=== PATIENT | female | born 1965 | race Caucasian/White ===

== ENCOUNTER → 2017-10-20 07:19 | Outpatient (CLI) | payer OTHER, SELFPAY ==
--- NOTE | 2017-10-20 07:21 | CT_ITS ---
STUDY: CT LUMBAR SPINE WITHOUT CONTRAST REASON FOR EXAM: Female, 52 years old. Chronic back pain and left leg pain. Prior surgery. RADIATION DOSAGE (If Supplied By Facility): CTDIvol = ( 16.10 ) mGy, DLP = ( 516.13 ) mGycm TECHNIQUE: The patient was scanned in a multi detector CT scanner. High resolution transaxial imaging was performed. Images were obtained from T12 to S1 level. Sagittal and coronal images were reconstructed. Individualized dose optimization techniques were used for this CT. COMPARISON: Comparison is made with prior examination June 14, 2017. FINDINGS: Normal lumbar lordosis. There is no substantial scoliosis. Normal vertebrae of the lumbar spine. L1-2: Normal endplates. Normal disc height and morphology. Normal bilateral facet joints. Normal central canal and bilateral lateral recesses. Normal bilateral intervertebral neural foramina. L2-3: Normal endplates. Normal disc height and morphology. Normal bilateral facet joints. Normal central canal and bilateral lateral recesses. Normal bilateral intervertebral neural foramina. L3-4: Normal endplates. Normal disc height and morphology. Normal bilateral facet joints. Normal central canal and bilateral lateral recesses. Normal bilateral intervertebral neural foramina. L4-5: Once again, there is evidence of a grade 1 anterior listhesis of L4 on L5. The patient is status post interpedicular screw fixation at the L4-L5 level with prosthetic disc placement. Stable irregularity along the superior endplate of the anterior aspect of the L5 vertebrae. There is also evidence of a Schmorl's node in the inferior endplate of the L4 vertebrae. Stable central canal stenosis due to hypertrophy of the facet joints. L5-S1: Normal endplates. Normal disc height and morphology. Normal bilateral facet joints. Normal central canal and bilateral lateral recesses. Normal bilateral intervertebral neural foramina. Normal visualized paraspinous soft tissue structures. CT/Spine Lumbar without Contrast IMPRESSION: Postoperative changes at the L4-L5 level. Stable anterior listhesis of L4 on L5. There has been essentially no change since prior study. Electronically Signed: Phil Mix MD at 14:25 EST Tel [phone], Service support ,
== END ==
PROVIDERS: Family Provider Family Medicine; PCP Family Medicine; Visit Provider Anesthesiology Pain Medicine
DX: M54.9 Dorsalgia, unspecified (principal); M79.606 Pain in leg, unspecified
CPT/HCPCS: 72131

== ENCOUNTER → 2018-10-10 07:18 | Outpatient (CLI) | payer OTHER, SELFPAY ==
--- NOTE | 2018-10-10 07:26 | MRI_ITS ---
STUDY: MRI LUMBAR SPINE WITHOUT CONTRAST REASON FOR EXAM: Female, 53 years old. Low back pain radiating to the legs TECHNIQUE: Standardized fat and water weighted pulse sequences were obtained in the sagittal and axial planes. COMPARISON: February 03, 2017 FINDINGS: T12-L1: Normal endplates. Normal disc height, hydration and morphology. Normal bilateral facet joints. Normal central canal and bilateral lateral recesses. Normal bilateral intervertebral neural foramina. Normal lumbar lordosis. There is no substantial scoliosis. Normal conus medullaris that terminates at L1 L1-2: Normal endplates. Normal disc height, hydration and morphology. Normal bilateral facet joints. Normal central canal and bilateral lateral recesses. Normal bilateral intervertebral neural foramina. L2-3: Normal endplates. Normal disc height, hydration and morphology. Normal bilateral facet joints. Normal central canal and bilateral lateral recesses. Normal bilateral intervertebral neural foramina. L3-4: Normal endplates. Normal disc height, hydration and minimal annular bulge.. Mild facet arthropathy.. Normal central canal and bilateral lateral recesses. Mild bilateral neural foraminal encroachment. L4-5: Status post bilateral laminectomy and posterior fusion. Grade 1 spondylolisthesis. Narrowed disc space with desiccation of the disc and mild bulging disc osteophyte complex. Bilateral facet arthropathy. Normal central canal. Moderate bilateral recess and severe bilateral neuroforaminal stenosis exaggerated by shortened pedicles L5-S1: Normal endplates. Normal disc height, hydration and morphology. Mild facet arthropathy.. Normal central canal and bilateral lateral recesses. Normal bilateral intervertebral neural foramina. Normal visualized sacral ala. Normal visualized paraspinous soft tissue structures. There has been little significant change since prior exam MRI/Spine Lumbar (Routine) IMPRESSION: No evidence for acute fracture or subluxation. Postsurgical changes at L4-5 Spinal stenosis at L3-4 and more severe at L4-5 secondary to disc disease and bony hypertrophy exaggerated by shortened pedicles. Electronically Signed: Emmanuel Bone MD at 22:17 EST , Service support ,
== END ==
PROVIDERS: Family Provider Family Medicine; PCP Family Medicine; Referring Provider Anesthesiology Pain Medicine; Visit Provider Anesthesiology Pain Medicine
DX: M54.9 Dorsalgia, unspecified (principal); M79.605 Pain in left leg
CPT/HCPCS: 72148

== ENCOUNTER → 2018-10-26 17:10 | Outpatient (CLI) | payer OTHER, SELFPAY ==
--- NOTE | 2018-10-26 17:14 | RAD_ITS ---
STUDY: X-RAY - RIGHT HAND REASON FOR EXAM: Female, 53 years old. Pain. TECHNIQUE: 3 view(s) of the hand. COMPARISON: None. FINDINGS: Normal radiocarpal articulation. Normal distal radioulnar joint. Old avulsion fracture of the ulnar styloid. Normal visualized carpal bones. Normal carpal articulations There is degenerative arthrosis of the carpometacarpal (CMC) articulation of the thumb. Normal second through fifth carpometacarpal joints. Normal metacarpi. Normal metacarpophalangeal joint of the thumb. Normal interphalangeal joint of the thumb. Normal proximal and distal phalanges of the thumb. Normal metacarpophalangeal joints of the second through fifth fingers. Normal proximal and distal interphalangeal joints of the second through fifth fingers. Normal phalanges of the second through fifth fingers. The soft tissue structures are unremarkable. RAD/Hand Min 3 Views IMPRESSION: Old avulsion fracture of the ulnar styloid. Degenerative changes of the first carpometacarpal joint. Electronically Signed: Phil Mix MD at 8:28 EST , Service support ,
--- NOTE | 2018-10-26 17:15 | RAD_ITS ---
STUDY: X-RAY - SACROILIAC JOINTS REASON FOR EXAM: Female, 53 years old. Pelvic pain TECHNIQUE: 3 view(s) of the sacroiliac joints were obtained. COMPARISON: None. FINDINGS: There are degenerative changes of the bilateral sacroiliac joints. There is demineralization of the sacral ala and sacrum. There is no demonstrated fracture. Normal visualized iliac bones. Normal visualized soft tissue structures. Postsurgical changes of the lumbar spine. RAD/S-I Jts 3 or More Views IMPRESSION: Mild degenerative changes without acute findings Electronically Signed: Stephen Cortés DO at 9:28 EST Tel , Service support ,
== END ==
PROVIDERS: Family Provider Family Medicine; PCP Family Medicine; Referring Provider Family Medicine; Visit Provider Family Medicine
DX: M53.3 Sacrococcygeal disorders, not elsewhere classified (principal); M79.644 Pain in right finger(s)
CPT/HCPCS: 72202; 73130

== ENCOUNTER 2018-12-01 03:26 | Emergency (ER) | payer OTHER, SELFPAY ==
[2018-12-01 03:26] VITALS: BP 100/55; PULSE 107; RESP 18; TEMP 36.2; O2SAT 100; BMI 19.5
--- NOTE | 2018-12-01 03:53 | ED.VISSUMM ---
- ER Visit Summary Date of Service: 12/01/18 Chief Complaint: Vomiting and diarrhea History of Present Illness: The patient is a 53 F who presents the emergency department with approximately 4 hours of non-bloody vomiting and nonbloody diarrhea. Patient states that she felt fine during the day. She went to dinner with friends and ate [place]. She states she was home by 2100. Symptoms began around midnight. They have been persisting. She attempted to take a Zofran with no relief. No fevers. No recent antibiotics. No recent travel. They have city water. feels fine. Physical Examination: Afebrile vital signs are stable noted heart rate of 107 Gen: Well-nourished well-developed Head: Normocephalic atraumatic Eyes: Perrl EOMI ENT: TMs clear no rhinorrhea moist mucous membranes Neck: Supple no lymphadenopathy no JVD nontender CVS: Regular tachycardic rate rhythm no murmurs normal S1-S2 Respiratory: Tachypneic no distress clear to auscultation bilaterally chest nontender Abdomen: Soft mild diffuse tenderness no guarding or rebound nondistended normal bowel sounds no masses Back: Nontender Extremity: Nontender no edema Skin: Normal color no rash Neuro: alert orientated ?3 CN II-XII intact normal strength sensation reflexes gait cerebellar Psych: Anxious and shaky Test Results: White blood cell count nonspecifically elevated at 12.8. CMP and lipase normal. Emergency Department Course and Treatment: Patient received IV fluids and Phenergan. P.o. challenge given and passed. I will write for Phenergan at home. Instructions for oral hydration. I think this is most likely a viral illness probably norovirus has we have seen several patients recently with that. Impression: 1. Acute gastroenteritis This note was generated with [employer] dictation software. It may contain incorrect words, spelling, and punctuation that were not noted in review of the chart prior to signing ED Disposition - Plan for ED Patient: Disposition: Home or Assisted Living Instructions: ED Gastroenteritis Viral Prescriptions: proMETHazine tablet [Phenergan] 25 mg PO Q6H PRN PRN #20 tab PRN Reason: Nausea Referrals: Fredy Ac MD [Primary Care Provider] - 3-5 Days if not improving
[2018-12-01] MEDS: proMETHazine 25 MG/ML Syringe 12.5 MG IV (03:58)
[2018-12-01] MEDS: 0.9% Normal Saline 1,000 ML 1000 ML IV (03:58)
[2018-12-01 04:02] LABS: Absolute Lymphocyte Count 0.51 X10^3/ul (0.83-4.51); Absolute Neutrophil Count 11.7 X10^3/uL (2.0-7.7); Basophil# 0.02 X10^3/uL; Basophil% 0.2 % (0-1); Eosinophil# 0.04 X10^3/uL; Eosinophils% 0.3 % (0-5); Hematocrit 41.4 % (37-47); Hemoglobin 13.8 g/dl (12.0-15.0); Lymphocyte # 0.51 X10^3/ul (4.0); Mean Corp Hgb Conc 33.3 g/gl (32-36); Mean Corpuscular Hgb 32.1 pg (27.0-32.0); Mean Corpuscular Volume 96.3 fL (81-99); Mean Platelet Vol. 10.1 fl (6.2-12.0); Monocyte# 0.61 X10^3/uL; Monocyte% 4.8 % (0-10); Neutrophil # 11.65 X10^3/uL (2.7-7.7); Neutrophil % 90.6 % (47-70); Platelet Count 265 K/mm3 (150-450); RBC Distribution Width CV 12.9 % (11.6-14.6); RBC Distribution Width SD 44.6 fl (35.1-43.9); White Blood Count 12.8 K/mm3 (4.4-11.0)
[2018-12-01 04:03] LABS: Differential Indicated SCAN CRITERIA MET; POSITIVE COUNT NO; POSITIVE DIFFERENTIAL YES; POSITIVE MORPHOLOGY NO
[2018-12-01 04:14] LABS: Albumin, Serum 4.7 g/dL (3.2-5.0); BUN 15 mg/dL (7-18); BUN/Creat Ratio 23.2 RATIO (10-20); Creatinine, Serum 0.65 mg/dL (0.55-1.02); EST Glomerular Filtration Rate 101 mL/min (>60); Est Glom Filt Rate - Afr Amer 122 mL/min (>60); Estimated Creatinine Clearance 77.03 ml/min; Glucose 120 mg/dL (74-106); Protein, Total 7.9 g/dL (6.4-8.2)
[2018-12-01 04:15] LABS: ALB/GLOB Ratio 1.5 RATIO (0.9-2.4); AST(SGOT) 51 U/L (15-37); Alanine Aminotransfer ALT/SGPT 49 U/L (13-56); Alkaline Phosphatase 62 U/L (45-117); Anion Gap 10 (5-15); Calcium,Total 9.4 mg/dL (8.5-10.1); Chloride 103 mmol/L (98-107); Globulin 3.2 g/dL (2.2-4.2); Lipase 83 U/L (73-393); Sodium Level 143 mmol/L (136-145)
[2018-12-01] MEDS: proMETHazine 25 MG Tablet PO (05:06)
[2018-12-01] MEDS: Loperamide 2 MG Capsule 4 MG PO (05:06)
[2018-12-01 05:22] VITALS: BP 145/95; PULSE 101; RESP 16; O2SAT 100
== END 2018-12-01 05:23 | disposition home or self-care (01) ==
PROVIDERS: Emergency Provider Emergency Medicine; Family Provider Family Medicine; PCP Family Medicine
DX: K52.9 Noninfective gastroenteritis and colitis, unspecified (principal); M54.9 Dorsalgia, unspecified; G89.29 Other chronic pain
CPT/HCPCS: 80053; 83690; 85025; 96361; 96372; 96374; 99283; J7030; A4216

== ENCOUNTER → 2018-12-28 06:19 | Outpatient (CLI) | payer OTHER, SELFPAY ==
[2018-12-01 03:26] VITALS: BMI 19.5
--- NOTE | 2018-12-28 15:41 | NEURO ---
NCS and/or EMG Patient Report Ordering Doctor: Carmine Schwartz DATE OF SERVICE: 12/28/18 Conchis Lucas is a 53-year-old female presents for electrodiagnostic testing of the lower limbs. She reports sharp stabbing pain in the left leg as well as continued low back pain. She has previously had lumbar surgery. Letter diagnostic findings: Peroneal motor nerve demonstrates normal distal latency amplitude and conduction velocity bilaterally. Normal tibial motor response bilaterally. Normal tibial and peroneal F waves. H reflex normal bilaterally. Sensory responses are within normal limits. Needle he MG testing demonstrates 1+ polyphasic motor units in the left gastrocnemius. All other muscles tested showed no evidence of denervation with normal motor unit action potentials. Letter diagnostic assessment: This is an essentially normal study in the lower limbs. There is no electrodiagnostic evidence for acute lumbosacral radiculopathy or peripheral neuropathy. Polyphasic motor units in the left gastrocnemius are suggestive of some chronic denervation in the left S1 dermatome. If there are any further questions, please not hesitate to contact me.
== END ==
PROVIDERS: Family Provider Family Medicine; PCP Family Medicine; Referring Provider Anesthesiology Pain Medicine; Visit Provider Anesthesiology Pain Medicine
DX: M54.9 Dorsalgia, unspecified (principal); M79.606 Pain in leg, unspecified
CPT/HCPCS: 95886; 95913

== ENCOUNTER → 2019-01-17 08:10 | Outpatient (CLI) | payer OTHER, SELFPAY ==
[2019-01-17 08:06] VITALS: BMI 19.5
--- NOTE | 2019-01-17 08:11 | RAD_ITS ---
STUDY: X-RAY - LUMBAR SPINE REASON FOR EXAM: Female, 53 years old. POST OP TECHNIQUE: 4 view(s) of the lumbar spine were obtained. COMPARISON: 10/20/2017 and 10/10/2018 FINDINGS: Normal lumbar lordosis. There is no substantial scoliosis. There is fusion at L4-5. There is 9 mm spondylolisthesis at L4-5 is stable during flexion and extension. There is bone erosion of the anterior superior corner of L5 and has not significantly changed since the study from 10/20/2017. There is no significant bony bridging between the vertebral bodies at L4-5. Normal disc space heights at the remaining levels. The soft tissue structures are unremarkable. RAD/L/S Spine Bending Flex/Ext IMPRESSION: Fusion at L4-5-5 without significant bony bridging between the vertebral bodies. There is no evidence of instability. Electronically Signed: Celestine Mackey, at 1:12 EDT Tel , Service support ,
== END ==
PROVIDERS: Family Provider Family Medicine; PCP Family Medicine; Referring Provider Orthopaedic Surgery; Visit Provider Orthopaedic Surgery
DX: M54.16 Radiculopathy, lumbar region (principal)
CPT/HCPCS: 72120

== ENCOUNTER 2019-02-20 07:30 | Outpatient (RCR) | payer OTHER, SELFPAY ==
[2019-01-17 08:06] VITALS: BMI 19.5
--- NOTE | 2019-02-06 07:46 | HP.PTEVAL_ITS ---
Patient's Visit Information NANCY BURKS is a 53 year old F referred to Physical Therapy by Becky Salazar MD with a diagnosis of Piriformis Syndrome. Date of Evaluation: 02/06/19 Physical Therapist: [place] DPT - Visit Plan Frequency: 2x /Week Duration: 3 Weeks Plan: Intended to do aquatic therapy for 2 weeks with progression to land for 2 weeks. Patient unable to attend aquatic therapy times so patient will be seen on land for 2 week for progression of strengthening and home exercise program for core strength/stabilization - Subjective Findings: Patient reports sciatic pain for about a year and half- insidous onset. The pain is always there but gets more intense. Agg: sitting Worst: 5/10 in the last 48 hours. Current pain level is a 2/10. Eases: Standing is the best. pain is located in the buttock area and radiates down the left leg. fuzzy in the calf and sometimes the big and pinky toes. Can't follow the line after the knee. Describes the pain as burning and sharp. Has had x-rays and MRI and saw Dr. Salazar. She says there is a lot going on- going to try a differnet injection on . Her whole life has changed due to her lumbar fusion 2 years ago- had a cervical spine fusion with a hardwear removal. No N/T down the LE. No loss or change in bowel or bladder. Sleep: wakes her up and keep her from sleeping. 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 Trying to decipher where the pain is coming from. Goes back to [place] at end of February. Significant surgical history with back problems- drives 50 min to work and is miserable by the time she gets here. Does not use a lumbar roll as she is unable to tolerate anything touching her spine. She wants her hardwear out of her back but is unsure if that is the problem. Does not sit unless she has to- eats standing up, watches TV standing up, etc. PMHx/Meds: no changes since saw [facility]. - Objective Posture: good throughout session. Gait: no devaition noted. Observation: goes have multiple surgical incisions well healed along lumbar spine. ROM: Lumbar Flexion: hands to mid crowe with reports of significant pain, Extn: neutral, SB: WFL pain to the left Rotation: WFL pain to the left and pulling to the right, LE: WFL. Sensation: WNL. Reflexes: diminished bilaterally at patella. Palpation: unable to tolerate light touch to paraspinals of lumbar spine. SLS: able to stand 30 seconds but reports instability bilaterally and has increased muscle activation left>right. HR/TR: able but left TR decreased by 25% compared to right. Strength: Core: fair, Left LE: hip: flexion/IR/ER 4-/5 Abd/Add/Ext: 4/5, Knee: 4/5, Ankle: 4+/5, Right: Hip flexion/IR/ER 4/5 Abd/Add/Ext: 4+/5, Knee: 5/5, Ankle. Flex: HS: mild, Gastroc: mild. Special Test: TAWANA: negative, Figure 4: negative. - Goals Goal 1:: Patient will be I with HEP and progression Goal Time Frame: 4-6 Weeks Goal 2:: Patient will demo 4+/5 strength in bilateral LE where deficit Goal Time Frame: 4-6 Weeks Goal 3:: Patient will report 2/10 pain for 1 week Goal Time Frame: 4-6 Weeks - Rehabilitation Potential Physical Therapy Diagnosis: Patient presents with hypomobility- she has decreased strength and muscular endurance Left>Right leading to increased pain with ADL's. Rehabilitation Potential: Fair - Anticipated Interventions Patient/Client Instruction: Educate patient on: Benefits of Fitness Program Therapeutic Exercise to Include: Strength training, Endurance training, Balance training, Agility training, Body mechanics, Postural training, Flexibilty training, Gait and locomotor training, Dynamic Lumbar Stabilization, Scapular Strength/Stabilization For the Purpose of:: To improve muscle performance and motor function TENS: Yes Cryotherapy (ice pack, ice massage): Yes Thermo therapy (hot pack): Yes Ultrasound (thermal/non thermal): No - Lumbar Fusions For the Purpose of:: To decrease pain Thank you for the opportunity to evaluate your patient. For Medicare and Medicare HMO plans, please review the plan of care and approve it. It will need to be FAXED BACK to us at [phone] for Medicare purposes. For Medicare only, by signing this I certify the plan of care. Please let me know if there are questions or concerns regarding this plan of care. Physician Signature: Date:
--- NOTE | 2019-02-20 07:46 | HP.PTDCSUM ---
HP - PT D/C Summary It has been my pleasure to treat NANCY BURKS under orders from Becky Salazar MD, for the diagnosis of Piriformis Syndrome for a total of 5 visit(s). Discharge Date: Please see the following information for a summary of their discharge status. - Subjective Subjective: Patient reports thats he is miserable- PT is making her worse. After last session she was having nerve pain. She sat all weekend in the car and at a wedding and is simply miserable. Sees in approx [address] Schwartz after that. - Overall Improvement % Improvement: 0 - Objective Objective/Function: No changes since initial evaluation. Posture: good throughout session. Gait: no devaition noted. Observation: goes have multiple surgical incisions well healed along lumbar spine. ROM: Lumbar Flexion: hands to mid crowe with reports of significant pain, Extn: neutral, SB: WFL pain to the left Rotation: WFL pain to the left and pulling to the right, LE: WFL. Sensation: WNL. Reflexes: diminished bilaterally at patella. Palpation: unable to tolerate light touch to paraspinals of lumbar spine. SLS: able to stand 30 seconds but reports instability bilaterally and has increased muscle activation left>right. HR/TR: able but left TR decreased by 25% compared to right. Strength: Core: fair, Left LE: hip: flexion/IR/ER 4-/5 Abd/Add/Ext: 4/5, Knee: 4/5, Ankle: 4+/5, Right: Hip flexion/IR/ER 4/5 Abd/Add/Ext: 4+/5, Knee: 5/5, Ankle. Flex: HS: mild, Gastroc: mild. Special Test: TAWANA: negative, Figure 4: negative. - Goals Goal 1:: Patient will be I with HEP and progression Goal 2:: Patient will demo 4+/5 strength in bilateral LE where deficit Goal 3:: Patient will report 2/10 pain for 1 week - Plan Plan: Discharge- return to [facility] for further evaluation - D/C Information If there are questions or concerns regarding this patient's physical therapy, please feel free to call me at [phone]. Thank you for the referral of this patient. Sincerely, [place] DPT
== END 2019-02-20 19:00 | disposition home or self-care (01) ==
LOC: PT 07:30
PROVIDERS: Family Provider Family Medicine; PCP Family Medicine; Referring Provider Orthopaedic Surgery; Visit Provider Orthopaedic Surgery
DX: G57.02 Lesion of sciatic nerve, left lower limb (principal)
CPT/HCPCS: 97110; 97162; 97164

== ENCOUNTER → 2019-03-29 08:43 | Outpatient (CLI) | payer OTHER, SELFPAY ==
[2019-03-14 10:57] VITALS: BMI 19.5
[2019-03-29 10:14] LABS: Amphetamine Urine VISTA NEGATIVE (<1000 ng/mL); Barbiturate Urine VISTA NEGATIVE (< 200 ng/mL); Benzodiazepine Urine VISTA NEGATIVE (< 200 ng/mL); Cocaine Urine VISTA NEGATIVE (< 300 ng/mL); Ecstacy Urine VISTA NEGATIVE (< 500 ng/mL); Methadone Urine VISTA NEGATIVE (< 300 ng/mL); PCP Urine VISTA NEGATIVE (< 25 ng/mL); THC Urine VISTA NEGATIVE (< 50 ng/mL); Vista UDS pH Range 6
== END ==
PROVIDERS: Family Provider Family Medicine; PCP Family Medicine; Referring Provider Anesthesiology Pain Medicine; Visit Provider Anesthesiology Pain Medicine
DX: F11.20 Opioid dependence, uncomplicated (principal)
CPT/HCPCS: 80307

== ENCOUNTER 2019-11-17 09:11 | Outpatient (RCR) | payer OTHER, SELFPAY ==
[2019-05-02 08:40] VITALS: BMI 19.5
--- NOTE | 2019-11-20 15:08 | MASS.EVAL_ITS ---
Massage Therapy Evaluation: Initial Evaluation Date: 11/17/2019 SUBJECTIVE: Conchis is a 54 year old female who was referred to the [facility] for a massotherapy evaluation by Dr. Schwartz with the diagnosis of neck and back pain. She presents today with the symptoms of pain, stiffness and tension in the neck, mid back, and low back. Conchis reports having a past medical history of neck, shoulders, back pain. She reports that her interscapular region has muscle tension radiating pain up to her neck which is worse on the left side. She r eports having minimal improvement with exercise and stretching over the last few days. OBJECTIVE: Upon observation Conchis has some posture issues with her head and shoulders forward from the neutral position in sitting and standing. After examination and palpation, I found Conchis to have high muscle tension with tenderness and myofascial restrictions in her sub occipitals, levator scapulae, trapezius, rhomboids, scalenes, and thoracic paraspinals. Her QL?s, lumbar paraspinals, piriformis, glute medius and minimus all were very tight with fascial restrictions, tender points and trigger points. The first treatment consisted of a one hour massage to her upper body with myofascial release, muscle stripping, trigger point compression techniques, and cervical manual traction. ASSESSMENT: I feel that Conchis is a good candidate for massotherapy at this time. She had a favorable response to the first treatment with reduction in her muscle aches, pain and tension. She also had improvement in her cervical flexibility and low back flexibility. PLAN: The plan of care was reviewed with the patient. The patient is to be seen on an as needed basis for a total of ten sessions with the recommendation of once every month for a one hour treatment.
--- NOTE | 2020-08-14 17:06 | MASS.DISCH ---
Massage Therapy Discharge Summary: Discharge Date: 08/14/2020 Conchis was seen for a massotherapy evaluation on 11/17/2019 with the diagnosis of neck and back pain. She was treated with one sessions of massage therapy consisting of deep pressure soft tissue techniques, myofascial release and trigger point compression to her cervical, thoracic, lower back and hips. At this time this patient is being discharged from our care at [facility] facility.
== END 2019-11-17 19:00 | disposition home or self-care (01) ==
LOC: MASS 09:11
PROVIDERS: PCP Family Medicine; Referring Provider Anesthesiology Pain Medicine; Visit Provider Anesthesiology Pain Medicine
DX: M54.9 Dorsalgia, unspecified (principal); M54.2 Cervicalgia
CPT/HCPCS: 97124

== ENCOUNTER → 2020-05-31 14:34 | Outpatient (CLI) | payer OTHER, SELFPAY ==
[2019-05-02 08:40] VITALS: BMI 19.5
--- NOTE | 2020-05-31 14:42 | CT_ITS ---
STUDY: CT CERVICAL SPINE WITH CONTRAST REASON FOR EXAM: Female, 54 years old. CERVICALGIA. PAIN RADIATING DOWN THE LEFT ARM. 3 FUSIONS 1 HARDWARE REMOVAL RADIATION DOSAGE (If Supplied By Facility): CTDIvol = ( 12.05 ) mGy, DLP = ( 209.91 ) mGycm TECHNIQUE: High resolution transaxial imaging was performed following intravenous administration of IV 100mL Isovue-370. Sagittal and coronal images were reconstructed. Individualized dose optimization techniques were used for this CT. COMPARISON: Comparison is made with prior study dated 08/20/2014. FINDINGS: Normal craniovertebral junction. Normal anterior atlantoaxial articulation. Normal odontoid process. There is straightening of the normal cervical lordosis. The patient is status post anterior fusion at the C3-C4 C4-C5 and C5-C6 levels. Prior laminectomy at C6-C7 and fusion. C2-3: Normal endplates. Normal disc height and morphology. Normal central canal and intervertebral neuroforamina. C3-4: Anterior fusion with a plate and screw fixation. Stable facet joint hypertrophy on the left side with left foraminal narrowing. C4-5: Anterior fusion. Mild degree of degenerative spurring. C5-6: Status post anterior fusion. Posterior fusion is seen as well. C6-7: Anterior and posterior fusion. C7-T1: Mild spurring. Normal visualized soft tissue structures. CT/Spine Cervical WITH Contrast IMPRESSION: Stable examination. Electronically Signed: Phil Mix, at 15:45 EDT , Service support ,
== END ==
PROVIDERS: PCP Family Medicine; Referring Provider Family Medicine; Visit Provider Family Medicine
DX: M54.2 Cervicalgia (principal)
CPT/HCPCS: 72126; Q9967

== ENCOUNTER → 2020-06-10 10:30 | Outpatient (CLI) | payer OTHER, SELFPAY ==
[2019-05-02 08:40] VITALS: BMI 19.5
--- NOTE | 2020-06-10 10:33 | RAD_ITS ---
STUDY: X-RAY - LEFT KNEE REASON FOR EXAM: Female, 54 years old. PT IS A RUNNER, PAIN TO PATELLOFEMORAL AREA TECHNIQUE: 4 view(s) of the knee. COMPARISON: None. FINDINGS: Normal visualized distal femur. Normal visualized proximal tibia and fibula. Normal proximal tibiofibular articulation. Normal medial femorotibial compartment. Normal lateral femorotibial compartment. There is mild degenerative arthrosis of the patellofemoral articulation. The soft tissue structures are unremarkable. RAD/Knee 4 or More Views IMPRESSION: Degenerative arthrosis. Electronically Signed: Celestine Mackey, at 14:16 EDT Tel , Service support ,
== END ==
PROVIDERS: PCP Family Medicine; Referring Provider Family Medicine; Visit Provider Family Medicine
DX: M22.2X9 Patellofemoral disorders, unspecified knee (principal)
CPT/HCPCS: 73564

== ENCOUNTER → 2020-06-21 09:32 | Outpatient (CLI) | payer OTHER, SELFPAY ==
[2020-06-21 08:55] VITALS: BMI 19.5
--- NOTE | 2020-06-21 09:34 | RAD_ITS ---
STUDY: X-RAY - LUMBAR SPINE REASON FOR EXAM: Female, 54 years old. Worsening low back pain TECHNIQUE: 2 view(s) of the lumbar spine were obtained. COMPARISON: 01/17/2019 FINDINGS: There has been previous pedicle screw fusion surgery at L4 and L5 to stabilize a grade 1 spondylolisthesis at L4-5. Hardware is intact and free of complication Normal lumbar lordosis. There is no substantial scoliosis. There is a normal alignment of the vertebrae from L1 to L4. There is a grade 1 spondylolisthesis at L4-5. L5 and S1 align anatomically. There is multilevel endplate spondylosis of the lumbar vertebrae. There is multi-level degenerative disc disease with multi-level disc space narrowing. There is no demonstrated fracture. The soft tissue structures are unremarkable. RAD/Lumbar Spine 2 or 3 Views IMPRESSION: Stable degenerative and postsurgical changes in the lumbar spine. No acute findings or significant interval change. Stable grade 1 spondylolisthesis at L4-5 Electronically Signed: Paul Anderson MD at 11:34 EDT , Service support ,
--- NOTE | 2020-06-21 09:34 | RAD_ITS ---
STUDY: X-RAY - CERVICAL SPINE REASON FOR EXAM: Female, 54 years old. Worsening neck pain TECHNIQUE: 4 view(s) of the cervical spine were obtained. COMPARISON: CT scan from 05/31/2020 FINDINGS: There has been previous anterior cervical fusion between C3 and C4 and posterior fusion between C5-6 and 7. There is interbody fusion from C3 through C7. Normal anterior atlantoaxial articulation. Normal odontoid process. There is straightening of the normal cervical lordosis. The soft tissue structures are unremarkable. There is no demonstrated fracture of the cervical spine. RAD/Cerv Spine 2 or 3 Views IMPRESSION: There has been interbody fusion between C3 and C7 with anterior fusion noted at C3-4 and posterior fusion at C5-C6 and C7. Hardware is intact and free of complication No fracture or suspicious osseous lesion Electronically Signed: Paul Anderson MD at 11:37 EDT , Service support ,
== END ==
PROVIDERS: PCP Family Medicine; Referring Provider Orthopaedic Surgery; Visit Provider Orthopaedic Surgery
CPT/HCPCS: 72040; 72100; C9803

== ENCOUNTER 2020-06-22 12:54 | Emergency (ER) ==
--- NOTE | 2020-06-22 13:08 | ED.DCSUM_ITS ---
History of Present Illness Chief Complaint: Cellulitis Informant: Patient Narrative: Patient states that 4 days ago she received an injection into the right hand for a pain management epidural injection. She is unsure of exactly what they gave her. She felt good for couple days and then yesterday noticed some redness near the IV site going up the arm to the elbow. She noted temperature 99.9. T-max 100.3 at now clinic prior to arrival. The patient notes that the back feels okay. She states it is not anything different than normal. She states that the arm is not necessarily painful unless she goes to touch it. Past Medical History - Allergies and Home Meds Allergies/Adverse Reactions: Allergies codeine Adverse Reaction (Verified 06/22/20 12:55) Vomiting epinephrine Adverse Reaction (Verified 06/22/20 12:55) VOMITTING AND PASSED OUT WHEN TAKEN IN COMB. WITH [facility] vomiting and passed out when taken in combination with [facility] oxycodone HCl [From Percocet] Adverse Reaction (Verified 06/22/20 12:55) Itching Penicillins Adverse Reaction (Verified 06/22/20 12:55) Vomiting Primary Care Physician: Fredy Ac MD [Primary Care Provider] - 3-5 Days if not improving Surgical History: - Smoking Status: Never smoker Review of Systems General: Denies: Chills, Fever, Sweats Eyes: Denies: Visual changes - bilaterally, Diplopia ENT: Denies: Rhinorrhea, Sore throat Cardiovascular: Denies: Chest pain, Palpitations Respiratory: Denies: Dyspnea, Cough, Dyspnea on exertion Gastrointestinal: Denies: Abdominal pain, Nausea, Vomiting, Diarrhea, Melena, Hematochezia Genitourinary: Denies: Dysuria, Hematuria, Frequency Musculoskeletal: Reports: Extremity Pain. Denies: Back pain Skin: Reports: Rash. Denies: Wounds Neurological: Denies: Headache, Weakness, Numbness Physical Exam Vital Signs/Narrative: Vital Signs Temp Pulse Resp BP Pulse Ox 06/22/20 12:55 97.6 F L 95 16 150/93 H 98 Inital Vital Signs reviewed: Yes General: Well nourished, Well developed, No Acute Distress Head: Normocephalic, Atraumatic Eyes: Perrl, EOMI ENT: Moist mucous membranes, No rhinorrhea Neck: Supple, Nontender Cardiovascular: Regular rate, Regular rhythm, No murmurs Respiratory: No distress, CTA bilaterally, Chest nontender Abdomen: Soft, Nontender, Nondistended, Normal bowel sounds Back: Nontender, Normal Inspection Extremities: Nontender, No edema Skin: Normal color, No rash, - - There is erythema extending from the IV site up to the AC following a superficial vein. However the vein itself does not feel thrombosed. There is no significant swelling distally. The erythema does not seem to extend laterally away from the vein as it approaches the AC joint. Proximally no symp Neurological: Alert, Oriented x3, Cranial nerves II-XII grossly intact, Normal Strength, Normal Sensation Psychological: Normal affect, Normal Mood Diagnostic/Tx/Re-eval - Medical Decision Making There is most likely a phlebitis but given that the erythema is extending away from the vein need to entertain a cellulitis. I think is very reasonable start her on some Keflex. Warm compresses and early follow-up. Return if worsening or concerns and patient is comfortable with this plan. At this point I do not see any evidence of DVT. ED Disposition - Plan for ED Patient: Disposition: Home or Assisted Living Diagnosis: Phlebitis after infusion, Cellulitis of right forearm Instructions: ED Cellulitis, ED Phlebitis Superficial Prescriptions: Cephalexin [Keflex] 500 mg PO Q6 #40 cap Prescription Printed Referrals: Fredy Ac MD [Primary Care Provider] - 3-5 Days if not improving
[2020-06-22 13:24] VITALS: RESP 15
== END 2020-06-22 13:24 | disposition home or self-care (01) ==
LOC: ED 13:16
DX: L03.113 Cellulitis of right upper limb (principal)
CPT/HCPCS: 99284

== ENCOUNTER → 2020-11-07 15:36 | Outpatient (CLI) | payer OTHER, SELFPAY ==
--- NOTE | 2020-11-07 15:40 | RAD_ITS ---
STUDY: X-RAY - LEFT HAND REASON FOR EXAM: Female, 55 years old. pain TECHNIQUE: 3 view(s) of the hand. COMPARISON: None. FINDINGS: Normal radiocarpal articulation. Normal distal radioulnar joint. Normal visualized carpal bones. Normal carpal articulations There is degenerative arthrosis of the carpometacarpal (CMC) articulation of the thumb. Normal second through fifth carpometacarpal joints. Normal metacarpi. Normal metacarpophalangeal joint of the thumb. Normal interphalangeal joint of the thumb. Normal proximal and distal phalanges of the thumb. Normal metacarpophalangeal joints of the second through fifth fingers. Normal proximal and distal interphalangeal joints of the second through fifth fingers. Normal phalanges of the second through fifth fingers. The soft tissue structures are unremarkable. RAD/Hand Min 3 Views IMPRESSION: Moderate first carpometacarpal joint arthrosis. Electronically Signed: Khoa Dillard MD at 16:01 EST Tel , Service support ,
== END ==
PROVIDERS: PCP Family Medicine; Referring Provider Orthopaedic Surgery; Visit Provider Orthopaedic Surgery
DX: M65.312 Trigger thumb, left thumb (principal)
CPT/HCPCS: 73130

== ENCOUNTER → 2020-11-13 09:09 | Outpatient (CLI) | payer OTHER, SELFPAY ==
[2020-11-13 09:56] LABS: Amphetamine Urine VISTA NEGATIVE (<1000 ng/mL); Barbiturate Urine VISTA NEGATIVE (< 200 ng/mL); Benzodiazepine Urine VISTA NEGATIVE (< 200 ng/mL); Cocaine Urine VISTA NEGATIVE (< 300 ng/mL); Ecstacy Urine VISTA NEGATIVE (< 500 ng/mL); Methadone Urine VISTA NEGATIVE (< 300 ng/mL); PCP Urine VISTA NEGATIVE (< 25 ng/mL); THC Urine VISTA NEGATIVE (< 50 ng/mL); Vista UDS pH Range 7
== END ==
PROVIDERS: PCP Family Medicine; Referring Provider Anesthesiology Pain Medicine; Visit Provider Anesthesiology Pain Medicine
DX: F11.20 Opioid dependence, uncomplicated (principal)
CPT/HCPCS: 80307

== ENCOUNTER → 2021-02-05 09:56 | Outpatient (CLI) | payer OTHER, SELFPAY ==
--- NOTE | 2021-02-05 10:02 | RAD_ITS ---
STUDY: X-RAY - CERVICAL SPINE REASON FOR EXAM: Female, 55 years old. NECK PAIN TECHNIQUE: 3 view(s) of the cervical spine were obtained. COMPARISON: Prior cervical spine films of 06/21/2020 FINDINGS: Normal anterior atlantoaxial articulation. Normal odontoid process. Degenerative arthrosis of the C1 odontoid articulation. Straightening of the cervical spine status post anterior spinal and interbody fusion of C3 and C4. No disruption of the anterior plate and screw hardware. Status post posterior spinal fusion of C5, C6 and C7. No change in posterior pedicle screw and julia alignment or appearance. The spine remains fused from C3 through C7. Mild degenerative disc and joint changes at C2-3. The soft tissue structures are unremarkable. RAD/Cerv Spine 2 or 3 Views IMPRESSION: Straightening of the cervical spine with no change in alignment or hardware placement status post anterior spinal fusion of C3-C4 and posterior spinal fusion of C5, C6 and C7. Electronically Signed: Sarai Yun MD at 23:28 EDT , Service support ,
== END ==
PROVIDERS: PCP Family Medicine; Referring Provider Anesthesiology Pain Medicine; Visit Provider Anesthesiology Pain Medicine
DX: M54.2 Cervicalgia (principal)
CPT/HCPCS: 72040

== ENCOUNTER → 2021-02-07 11:22 | Outpatient (CLI) | payer OTHER, SELFPAY ==
--- NOTE | 2021-02-07 11:24 | BI_ITS ---
MAMMOGRAPHY - BILATERAL SCREENING REASON FOR EXAM: Female, 55 years old. Routine annual screening examination. PERTINENT HISTORY: Non-contributory. TECHNIQUE: Digital bilateral breast roberto (3D mammographic acquisition) in the CC and MLO projections. 2-D mediolateral oblique (MLO) and craniocaudad (CC) views of both breasts were obtained. CAD: Full Field Digital Mammography with Computer Added Detection was performed. COMPARISON: Comparison is made with prior study dated 07/21/2017 and 10/27/2013. FINDINGS: Breast Composition: The breasts are extremely dense, which lowers the sensitivity of mammography. There are no dominant masses or suspicious calcifications. No other significant abnormalities are identified. There has been no significant change since the prior study. BI/SCRN MAMM (CAD)W/ROBERTO BILAT IMPRESSION: Stable bilateral screening mammogram. Yearly follow-up mammogram recommended. (A) ASSESSMENT CATEGORY: BIRADS Category 1: Negative. A letter regarding these results will be sent to the patient by the facility within 30 days. Approximately 10% of breast cancers are not detected by mammography. A normal mammogram should not delay biopsy of a clinically suspicious abnormality. [id number] Electronically Signed: Phil Mix MD at 12:38 EDT , Service support ,
== END ==
PROVIDERS: PCP Family Medicine; Referring Provider Family Medicine; Visit Provider Family Medicine
DX: Z12.31 Encounter for screening mammogram for malignant neoplasm of breast (principal)
CPT/HCPCS: 77063; 77067

== ENCOUNTER → 2021-02-12 07:51 | Outpatient (CLI) | payer OTHER, SELFPAY ==
--- NOTE | 2021-02-12 07:56 | CT_ITS ---
STUDY: CT CERVICAL SPINE WITHOUT CONTRAST REASON FOR EXAM: Female, 55 years old. Chronic left-sided neck pain. The patient is status post C3-C4, C4-C5, C5-6 and C6-C7 anterior fusion and prosthetic disc placement. RADIATION DOSAGE (If Supplied By Facility): CTDIvol = ( 11.86 ) mGy, DLP = ( 243.61 ) mGycm TECHNIQUE: High resolution transaxial imaging was performed without contrast material. Sagittal and coronal images were reconstructed. Individualized dose optimization techniques were used for this CT. COMPARISON: Comparison is made with prior study dated 05/31/2020. FINDINGS: Normal craniovertebral junction. Normal anterior atlantoaxial articulation. Normal odontoid process. There is straightening of the normal cervical lordosis. The patient is status post multilevel anterior fusion with screw and plate fixation device and prostatic disc placement. C2-3: Facet joint osteoarthritis and hypertrophy. No significant stenosis seen. C3-4: The patient is status post anterior fusion with plate and screw fixation device. There is fusion of the disc space with the posterior spondylosis worse on the left side of the midline causing mild to moderate degree of left neural foraminal stenosis. C4-5: The patient is status post anterior fusion with screw and plate fixation device. Mild degree of degenerative spurring. C5-6: Status post anterior and posterior fusion. No evidence of stenosis. C6-7: Status post anterior and posterior fusion. Mild degree of spondylosis. C7-T1: Normal endplates. Normal disc height and morphology. Normal central canal and intervertebral neuroforamina. Normal visualized soft tissue structures. CT/Spine Cervical without Contras IMPRESSION: Stable examination. Electronically Signed: Phil Mix MD at 11:51 EDT , Service support ,
== END ==
PROVIDERS: PCP Family Medicine; Referring Provider Anesthesiology Pain Medicine; Visit Provider Anesthesiology Pain Medicine
DX: M54.2 Cervicalgia (principal); M79.603 Pain in arm, unspecified; Z98.1 Arthrodesis status
CPT/HCPCS: 72125

== ENCOUNTER 2021-04-01 09:45 | Day surgery (SDC) | payer OTHER, SELFPAY ==
[2021-04-01] MEDS: Lactated Ringers 1,000 ML 100 ML IV (10:30)
[2021-04-01 10:41] VITALS: BP 128/80; PULSE 67; RESP 16; TEMP 36.9; O2SAT 97; BMI 18.0
[2021-04-01] MEDS: Cefazolin 2 GM in 0.9% Normal Saline 100 ML IV (11:50)
[2021-04-01] MEDS: Bupivacaine 0.25% 30 ML Vial (12:18)
--- NOTE | 2021-04-01 12:23 | PCM.HP.BLA ---
History and Physical Date of Admission: 04/01/21 Date of Service: 03/26/21 MR#:[id number]:[id number]: NANCY BURKSRep #:[id number] Provider:Dr. Prashant Macario DOAge/Sex: 55/F Location:KRUPACornelio:Signed Intake Intake Visit Reasons: Left hand Chief Complaint: left hand Is patient in pain?: Yes Allergies codeine Adverse Reaction (Verified 03/26/21 08:59) Vomiting epinephrine Adverse Reaction (Verified 03/26/21 08:59) VOMITTING AND PASSED OUT WHEN TAKEN IN COMB. WITH [facility] oxycodone HCl [From Percocet] Adverse Reaction (Verified 03/26/21 08:59) Itching Penicillins Adverse Reaction (Verified 03/26/21 08:59) Vomiting Medications tramadol 50 mg PO TID 12/01/18 [History Confirmed 03/26/21] cmwilvnqnbme-Hb-xiaw-minerals 1 tab PO DAILY tab 06/21/20 [History Confirmed 03/26/21] lisdexamfetamine 50 mg PO DAILY 06/22/20 [History Confirmed 03/26/21] PFSH Medical History (Updated 03/26/21 @ 09:13 by Rosario Rodriguez) DDD (degenerative disc disease) epidectomy Fusion of spine Trigger thumb of right hand Surgical History delivery delivered History of endometrial ablation History of tonsillectomy Family History Father CVA (cerebral vascular accident) Grandmother Brain aneurysm Social History (Updated 11/07/20 @ 15:[address] Vilma Pollock DO) household members: spouse and children housing: house number of children: 3 current occupational status: employed Smoking Status: Never smoker alcohol intake: current alcohol intake frequency: a few times a week substance use type: does not use what type of physical activity do you participate in: running, bicycling and swimming frequency: 3-4 times per week do you feel safe at home: Yes HPI Left hand Details: Parts of this documentation were recorded by a scribe, this documentation accurately reflects the service provided and the decisions made by me, Dr. Prashant Macario DO 03/26/21 0733. NANCY BURKS is a 55 year old F here today for left thumb pain. Patient notes that she continues to have left thumb pain. Patient notes that her thumb gets stuck fully extended. she has to manipulate her thumb and it triggers. She was set for surgery for a trigger thumb injection with Dr Pollock and then we had to cancel. She has had 3 injections which were helpful short term. Patient denies any pain medications. She has numbness into her hand due to cervical fusions. History of right trigger thumb release did well. Of note she has had multiple cervical surgeries with chronic neuropathies ROS [facility] Reports arthralgias, Denies numbness and Denies tingling Skin/Breast Reports system reviewed and no additional complaints, except as documented Neuro Yes system reviewed and no additional complaints, except as documented, No numbness and No tingling Ortho Exam General General: Yes no acute distress Neurologic: Yes alert Psychologic: Yes reasonable and appropriate Right Wrist/Hand Skin/Wound: No Swelling and No Ecchymosis WRIST: atrophy of thenar Left Wrist/Hand Skin/Wound: Yes CDI, No Swelling, No Ecchymosis, Yes nail intact, Yes capillary refill normal and No erythema WRIST: She is able to flex the IP joint against resistance, atrophy of thenar eminence bilaterally and first webspace volarly there is numbness to the digits there is prominence of the base of the first metacarpal Supplemental Info 11/07/2020 x-ray left hand moderate to severe first CMC joint arthrosis Coding Level of Care Code Off vis,est,level 3 Diagnoses Trigger thumb of left hand M65.312 Assessment and Plan Assessment and Plan (1) Trigger thumb of left hand: Status: Acute Plan - Dr. Prashant Macario, DO: Spoke with the patient about an A1 cr release. Explained the surgery procedure, risks and recovery. Patient will have her stitches internal per her request. She should not do any heavy lifting and should keep her incision clean. Reviewed the pre-operative plans with the patient. Risks and benefits of the procedure were fully explained, including but not limited to infection, neurovascular injury particularly noted risk of radial digital nerve as this crosses the operative field in some cases, continued pain, arthritis, stiffness, need for further surgery, re-injury, DVT, PE, general risks of anesthesia, and loss of limb or life. The patient understands all the risks and does wish to proceed with written consent. Follow up for 2 week post op or sooner if pain, swelling, numbness or associated symptoms, or concerns develop. All questions answered. Patient in agreement of plan. 03/26/21 1034<Electronically signed by Prashant Macario DO>Date Prashant Macario DO I have re-examined the patient. There are no clinical changes since date of exam
--- NOTE | 2021-04-01 12:24 | OP.PCM_ITS ---
Report of Operation Date of Procedure: 04/01/21 Description of Surgical Findings:: Preoperative diagnosis; left thumb digit trigger digit Postoperative diagnosis; same Procedure: Left thumb A1 cr release Anesthesia: Local with MAC Tourniquet time; 14 minutes 250 mm Hg Complications: None Indication for procedure; This is a 55-year-old female with symptoms consistent with trigger thumb. Risks benefits and alternatives were reviewed including risks of bleeding infection nerve tendon tissue damage need for further surgery and continued pain and symptoms, hypersensitivity to scar/incision and recurrence. Procedure; The patient was met in the preoperative holding area the operative extremity was identified by both patient and physician and was marked the patient was met by anesthesia and brought back to the operating room and transferred to the operating table in the supine position. Aanesthesia was started. A well-padded tourniquet was placed on the operative upper extremity. The patient was prepped and draped in the usual sterile fashion. A timeout was called to ensure the proper patient procedure and extremity were being contemplated. 0.5 percent Marcaine was injected into the incisional area. Esmarch was used tourniquet was inflated. 15 blade scalpel was used to make a transverse incision in the flexion crease over the A1 cr dissection was made through the dermis only meticulous dissection was carried down with a Littler scissors to avoid injury to the radial digital nerve which was identified and mobilized. There was significant bulbous thickening of the A1 cr with a deep blade scalpel the A1 cr was released laterally and a small amount of it was excised due to the bulbous nature Bhavani retractors placed radial and ulnar protecting the digital nerves and a Ragnell retractor was used at the apex of the incision under direct visualization a deep blade scalpel was used to release the A1 cr. The wound was thoroughly irrigated and closed with 4-0 Monocryl subcutaneous stitches based on patient's preference and request Cavilon Steri- Strips Xeroform 4 x 4's web roll Tex wrap. Patient tolerated the procedure well was brought back to the PACU in stable condition.
--- NOTE | 2021-04-01 12:27 | PCM.DC ---
Discharge Instructions Activity Keep extremity elevated above heart level: Operative Extremity Dressing / Incision Additional Dressing/Incision Instructions:: Ice and elevate operative extremity next 72 hours. Keep dressing on clean and dry for 48 hours then may remove and allow warm soapy water to rinse over incision but do not submerge until sutures are out. Then apply bandaid over incision and change daily. encourage finger range of motion. Not lift more than 1/2 pound as you may dehisce the wound. Call with any questions or concerns Follow Up Care Please Follow Up With: Prashant Macario DO Test Results: Test results from this visit will be discussed in further detail at your follow-up appointment, if applicable. Discharge Plan Admission Attending Provider: Prashant Macario Primary Care Provider: Fredy Ac Discharge Orders/Prescriptions Prescriptions: New tramadol 50 mg tablet 50 - 100 mg PO Q8H PRN (Reason: pain) Qty: 20 RF: 0 No Action Multiple Vitamin, Womens Tablet 1 tab PO DAILY RF: 0 tramadol 50 MG tablet 50 mg PO TID PRN PRN (Reason: Pain) RF: 0 lisdexamfetamine 50 MG capsule 50 mg PO DAILY RF: 0 Referrals / Follow Up: Fredy Ac MD [Primary Care Provider] - Disposition Disposition (needs filled in before D/C Order can be placed): Home, Self Care
[2021-04-01 12:28] VITALS: BP 114/73; BP 128/80; PULSE 61; RESP 16; TEMP 36.3; O2SAT 100
[2021-04-01 12:39] VITALS: BP 117/72; BP 128/80; PULSE 65; RESP 16; O2SAT 99
[2021-04-01 12:52] VITALS: BP 111/93; BP 128/80; PULSE 68; RESP 16; TEMP 36.1; O2SAT 100
[2021-04-01 13:30] VITALS: BP 110/70; BP 128/80; PULSE 70; RESP 16; O2SAT 100
== END 2021-04-01 13:35 | disposition home or self-care (01) ==
LOC: SDC 09:46 → AC 09:48
PROVIDERS: PCP Family Medicine; Referring Provider Orthopaedic Surgery; Visit Provider Orthopaedic Surgery
PROC: (CPT 26055; principal; 2021-04-01 11:35)
DX: M65.312 Trigger thumb, left thumb (principal); Z88.0 Allergy status to penicillin; Z88.5 Allergy status to narcotic agent
CPT/HCPCS: 01810; 26055; J7120; J2405

== ENCOUNTER 2021-09-23 16:30 | Outpatient (CLI) | payer OTHER, SELFPAY ==
--- NOTE | 2021-09-23 16:32 | RAD_ITS ---
STUDY: X-RAY - RIGHT HAND REASON FOR EXAM: Female, 56 years old. fell this morning, right thumb base pain and bruising TECHNIQUE: 3 view(s) of the hand. COMPARISON: None. FINDINGS: An acute mildly comminuted impaction fracture is present in the base of the proximal phalanx of the thumb with mild displacement. Normal radiocarpal articulation. Normal distal radioulnar joint. Normal visualized carpal bones. Normal carpal articulations There is severe degenerative arthrosis of the carpometacarpal articulation of the thumb with lateral subluxation of the first metacarpus. Normal second through fifth carpometacarpal joints. Normal metacarpi. No visualized fracture or displaced bony fragment. Small cortical spur is an ossicles are present at the bases of several of the distal phalanges of the hand. Normal metacarpophalangeal joint of the thumb. Normal interphalangeal joint of the thumb. Normal proximal and distal phalanges of the thumb. Normal metacarpophalangeal joints of the second through fifth fingers. Normal proximal and distal interphalangeal joints of the second through fifth fingers. Normal phalanges of the second through fifth fingers. The soft tissue structures are unremarkable. RAD/Hand Min 3 Views IMPRESSION: 1. Acute impaction fracture of the base of the proximal phalanx of the thumb Electronically Signed: Korey Lewis MD at 17:27 EST , Service support ,
== END 2021-09-23 23:59 | disposition short-term general hospital (02) ==
LOC: MTRAD 16:31
PROVIDERS: PCP Family Medicine; Referring Provider Family Medicine; Visit Provider Family Medicine
DX: M79.644 Pain in right finger(s) (principal)
CPT/HCPCS: 73130

== ENCOUNTER 2021-10-01 10:44 | Outpatient (CLI) | payer OTHER, SELFPAY ==
[2021-10-01 11:52] LABS: Absolute Lymphocyte Count 1.76 X10^3/uL (0.83-4.51); Absolute Neutrophil Count 2.6 X10^3/uL (2.0-7.7); Basophil# 0.07 X10^3/uL; Basophil% 1.3 % (0-1); Eosinophil# 0.08 X10^3/uL; Eosinophils% 1.5 % (0-5); Hematocrit 39.7 % (37-47); Hemoglobin 13.3 g/dL (12.0-15.0); Lymphocyte # 1.76 X10^3/ul (0.83-4.51); Lymphocyte % 33.5 % (19-41); Mean Corp Hgb Conc 33.5 g/dL (32-36); Mean Corpuscular Volume 95.7 fL (81-99); Mean Platelet Vol. 10.3 fl (6.2-12.0); Monocyte# 0.71 X10^3/uL; Monocyte% 13.5 % (0-10); NRBC Flagged by Analyzer 0 % (0-5); Neutrophil # 2.63 X10^3/uL (2.7-7.7); Platelet Count 300 K/mm3 (150-450); RBC Distribution Width CV 13.1 % (11.6-14.6); RBC Distribution Width SD 46.7 fl (35.1-43.9); Red Blood Count 4.15 M/mm3 (4.2-5.4); White Blood Count 5.3 K/mm3 (4.4-11.0)
[2021-10-01 12:34] LABS: AST(SGOT) 32 U/L (15-37); Alanine Aminotransfer ALT/SGPT 31 U/L (13-56); Albumin, Serum 4.3 g/dL (3.2-5.0); Alkaline Phosphatase 64 U/L (45-117); Anion Gap 5 (5-15); BUN 14 mg/dL (7-18); BUN/Creat Ratio 26.4 RATIO (10-20); Bilirubin, Direct 0.15 mg/dL (0.00-0.30); Calcium,Total 10.5 mg/dL (8.5-10.1); Chloride 101 mmol/L (98-107); Cholesterol 244 mg/dL (200); Creatinine, Serum 0.53 mg/dL (0.55-1.02); EST Glomerular Filtration Rate 126 mL/min (>60); Est Glom Filt Rate - Afr Amer 152 mL/min (>60); Globulin 3.7 g/dL (2.2-4.2); Glucose 99 mg/dL (74-106); High Density Lipoprotein 119 mg/dL; Potassium 3.9 mmol/L (3.5-5.1); Sodium Level 137 mmol/L (136-145); Thyroid Stim Hormone (TSH) 1.72 uIU/mL (0.358-3.74); Triglycerides 44 mg/dL; Very Low Density Lipoprotein 9 mg/dL (5-40)
== END 2021-10-01 23:59 | disposition short-term general hospital (02) ==
PROVIDERS: PCP Family Medicine; Visit Provider Internal Medicine Cardiovascular Disease
DX: I45.10 Unspecified right bundle-branch block (principal); R00.0 Tachycardia, unspecified
CPT/HCPCS: 36415; 80048; 80061; 80076; 84443; 85025

== ENCOUNTER 2021-10-03 11:37 | Outpatient (CLI) | payer OTHER, SELFPAY ==
--- NOTE | 2021-10-03 11:40 | RAD_ITS ---
EXAM: XR CERVICAL SPINE, 6 OR MORE VIEWS CLINICAL INDICATION: NECK PAIN TECHNIQUE: Frontal, lateral, oblique and flexion/extension views of the cervical spine. This report was created using [employer] technology. COMPARISON: Feb 05 2021 10:06am FINDINGS: VERTEBRAE: The odontoid process is obscured by the overlying hard palate on the open mouth view. Therefore, it is not fully evaluated by plain film. Preserved vertebral body height. No acute fracture. No spondylolisthesis. Preservation of the normal cervical lordosis. No significant facet arthropathy. DISC SPACES: Straightening of the cervical spine status post anterior spinal and interbody fusion of C3 and C4. No disruption of the anterior plate and screw hardware. Status post posterior spinal fusion of C5, C6 and C7 with fusion material in the disc space. No change in posterior pedicle screw and julia alignment or appearance. Mild degenerative disc and joint changes at C2-3. SOFT TISSUES: Unremarkable. No prevertebral soft tissue widening. LUNG APICES: Clear. RAD/Cerv Spine Obl/Flex/Ext Comp IMPRESSION: 1. The odontoid process is obscured by the overlying hard palate on the open mouth view. Therefore, it is not fully evaluated by plain film. 2. No change in the alignment and hardware since the prior study. Electronically Signed: Timmy Rashid MD at 15:36 EST ,
== END 2021-10-03 23:59 | disposition short-term general hospital (02) ==
PROVIDERS: PCP Family Medicine; Referring Provider Family Medicine; Visit Provider Family Medicine
DX: M54.2 Cervicalgia (principal)
CPT/HCPCS: 72052

== ENCOUNTER 2021-10-15 10:54 | Outpatient (CLI) | payer OTHER, SELFPAY ==
[2021-10-15 12:17] LABS: Amphetamine Urine VISTA POSITIVE (<1000 ng/mL); Barbiturate Urine VISTA NEGATIVE (< 200 ng/mL); Benzodiazepine Urine VISTA NEGATIVE (< 200 ng/mL); Cocaine Urine VISTA NEGATIVE (< 300 ng/mL); Ecstacy Urine VISTA NEGATIVE (< 500 ng/mL); Methadone Urine VISTA NEGATIVE (< 300 ng/mL); PCP Urine VISTA NEGATIVE (< 25 ng/mL); THC Urine VISTA NEGATIVE (< 50 ng/mL); Vista UDS pH Range 6
== END 2021-10-15 23:59 | disposition home or self-care (01) ==
PROVIDERS: PCP Family Medicine; Referring Provider Anesthesiology Pain Medicine; Visit Provider Anesthesiology Pain Medicine
DX: F11.20 Opioid dependence, uncomplicated (principal)
CPT/HCPCS: 80307

== ENCOUNTER 2021-10-17 11:15 | Outpatient (CLI) | payer OTHER, SELFPAY ==
--- NOTE | 2021-10-17 11:23 | RAD_ITS ---
STUDY: X-RAY - RIGHT HAND REASON FOR EXAM: Female, 56 years old. Thumb injury. Pain. TECHNIQUE: 3 view(s) of the hand. COMPARISON: None. FINDINGS: Osteopenia. Comminuted minimally impacted fracture of the base of the proximal phalanx of the first digit with intra-articular extension. Mild arthrosis of the radiocarpal articulation. Mild arthrosis of the radioulnar articulation. Separate os center for the ulnar styloid, a normal variant. Moderate arthrosis of the radial carpal row. Deformity of the trapezium which may be postsurgical in origin. Severe arthrosis of the first CMC joint. Moderate arthrosis of the MCP and IP joints. The soft tissue structures are unremarkable. RAD/Hand Min 3 Views IMPRESSION: Osteopenia with first proximal phalangeal fracture as described. Diffuse osteoarthrosis. Deformity of the trapezium which may be secondary to surgery Electronically Signed: Vinny Padgett MD at 12:44 EST ,
== END 2021-10-17 23:59 | disposition home or self-care (01) ==
LOC: MTRAD 11:22
PROVIDERS: PCP Family Medicine; Referring Provider Student in an Organized Health Care Education/Training Program; Visit Provider Student in an Organized Health Care Education/Training Program
DX: S62.511D Displaced fracture of proximal phalanx of right thumb, subsequent encounter for fracture with routine healing (principal)
CPT/HCPCS: 73130

== ENCOUNTER 2021-11-03 11:20 | Outpatient (CLI) | payer OTHER, SELFPAY ==
--- NOTE | 2021-11-03 11:31 | RAD_ITS ---
STUDY: X-RAY - RIGHT HAND REASON FOR EXAM: Female, 56 years old. Follow-up of fracture. TECHNIQUE: 3 view(s) of the hand. COMPARISON: 10/17/2021. FINDINGS: Osteopenia. Stable comminuted minimally impacted fracture of the base of the proximal phalanx of the first digit with intra-articular extension. Mild arthrosis of the radiocarpal articulation. Mild arthrosis of the radioulnar articulation. Separate os center for the ulnar styloid, a normal variant. Moderate arthrosis of the radial carpal row. Deformity of the trapezium which may be postsurgical in origin. Severe arthrosis of the first CMC joint. Moderate arthrosis of the MCP and IP joints. The soft tissue structures are unremarkable. RAD/Hand Min 3 Views IMPRESSION: Osteopenia with stable first proximal phalangeal fracture as described. Diffuse osteoarthrosis. Deformity of the trapezium which may be secondary to surgery Electronically Signed: Vinny Padgett MD at 9:57 EST ,
== END 2021-11-03 23:59 | disposition home or self-care (01) ==
LOC: MTRAD 11:22
PROVIDERS: PCP Family Medicine; Referring Provider Student in an Organized Health Care Education/Training Program; Visit Provider Student in an Organized Health Care Education/Training Program
DX: S62.511D Displaced fracture of proximal phalanx of right thumb, subsequent encounter for fracture with routine healing (principal)
CPT/HCPCS: 73130

== ENCOUNTER 2021-11-05 10:45 | Outpatient (CLI) | payer OTHER, SELFPAY ==
--- NOTE | 2021-11-05 10:47 | ECHOD_ITS ---
Reason For Study: ARRHYTHMIA Procedure This was a 2D Doppler, Color Flow transthoracic echocardiogram. Exam performed in department. Left Ventricle Normal LV size. Left ventricular systolic function is normal. Normal diastology for age. No regional wall motion abnormalities noted. Right Ventricle Normal RV size. Normal systolic function. Atria Normal left atrium. Normal right atrium. Bubble contrast study negative for right to left interatrial shunt. Mitral Valve Normal mitral valve. Tricuspid Valve Normal tricuspid valve. Mild tricuspid valve insufficiency. Pulmonary artery systolic pressure is 30 mmHg. Aortic Valve Normal aortic valve. Trisinus/trileaflet aortic valve. Great Vessels Normal aortic root. The pulmonary artery is normal size. Normal inferior vena cava. Pericardium/Pleural No pericardial effusion. MMode/2D Measurements & Calculations LVIDd: 4.3 cm IVSd: 0.71 cm Ao root diam: 3.6 cm LVIDs: 2.9 cm LVPWd: 0.89 cm RVDd: 3.3 cm FS: 32.5 % LAV(MOD-bp): 51.0 ml LA A4 area: 15.1 cm2 LA dimension(2D): 3.0 cm LAV(MOD-bp) Indexed: 34.3 ml/m2 LAV(MOD-sp2): 45.9 ml LAV(MOD-sp4): 40.6 ml RA A4 area: 14.0 cm2 Time Measurements MV dec time: 0.17 sec Doppler Measurements & Calculations MV E max luan: 60.3 cm/sec Lat Peak E' Luan: 12.2 cm/sec Med Peak E' Luan: 12.2 cm/sec MV A max luan: 53.5 cm/sec E/E' lat: 5.0 E/E' med: 5.0 MV E/A: 1.1 Ao V2 max: 114.8 cm/sec LV V1 max: 97.2 cm/sec PA V2 max: 80.2 cm/sec Ao max P.3 mmHg LV V1 max P.8 mmHg TR max luan: 251.1 cm/sec TR max P.2 mmHg ECHO/Echo Complete Interpretation Summary Normal LV size. Left ventricular systolic function is normal. No regional wall motion abnormalities noted. Bubble contrast study negative for right to left interatrial shunt. Pulmonary artery systolic pressure is 30 mmHg. Normal diastology for age. Ordering Physician: Akhil Corona Referring Physician: Claude Ac Performed By: Araceli Colvin RDCS, RVT
--- NOTE | 2021-11-05 17:34 | STRESSREP ---
Stress Test Report Exercise stress. 56-year-old lady with a history of cardiac dysrhythmia. Stress protocol: Resting KG demonstrates normal sinus rhythm with a rate of 70 bpm resting blood pressure is 128/82 mmHg. The patient exercised according to the regular Xavier protocol for total duration of 14 minutes. Patient completed 2 minutes into stage V of the Xavier protocol. The maximum heart rate attained was 150 bpm which was 92% of max impact at heart rate the maximum workload was 17.2 metabolic equivalents. At rest there were no ST or T wave changes noted suggest ischemia and at peak exercise upsloping ST changes were noted with did not meet the criteria for ischemia. No clinical angina was noted the test was terminated due to attainment of target heart rate. No arrhythmias were noted. The peak blood pressure was 172/62 mmHg. Conclusion: Exercise stress test with no EKG criteria for ischemia at a high workload. No arrhythmias noted. Excellent functional aerobic capacity.
== END 2021-11-05 23:59 | disposition home or self-care (01) ==
LOC: CVS 10:46
PROVIDERS: PCP Family Medicine; Referring Provider Internal Medicine Cardiovascular Disease; Visit Provider Internal Medicine Cardiovascular Disease
DX: I45.10 Unspecified right bundle-branch block (principal); R00.0 Tachycardia, unspecified
CPT/HCPCS: 93017; 93306; A4216

== ENCOUNTER → 2022-01-05 | Outpatient (CLI) | payer OTHER, SELFPAY ==
[2022-01-05 12:59] LABS: Bacteria 0 SEEN /hpf (None Seen); Mucous, Urine 0 SEEN /hpf (<or=2+); Red Blood Cells-Urine 0 SEEN /hpf (0-5); Squamous Epithelial Cells - UA 0 SEEN /hpf (5-10); White Blood Cells 0 SEEN /hpf (0-5)
[2022-01-05 13:04] LABS: Color, Urine Yellow (Yellow); Glucose, Dipstick Normal (Normal); Ketone-Dipstick Negative (Negative); Leukocyte Esterase-Dipstick Negative /ul (Negative); Nitrite-Dipstick Negative (Negative); Occult Blood-Urine Negative /ul (Negative); Protein-Dipstick Negative (Negative); Specific Gravity, Urine 1.005 (1.002-1.030); Urine Bilirubin Dipstick Negative (Negative); Urine Clarity Clear (Clear); Urine Urobilinogen Normal (Normal)
== END | disposition home or self-care (01) ==
PROVIDERS: PCP Family Medicine; Visit Provider Physician Assistant
DX: R10.9 Unspecified abdominal pain (principal)
CPT/HCPCS: 81001; 87086

== ENCOUNTER → 2022-01-21 | Outpatient (CLI) | payer OTHER, SELFPAY ==
--- NOTE | 2022-01-21 16:28 | US_ITS ---
STUDY: ULTRASOUND OF THE FEMALE PELVIS - COMPLETE REASON FOR EXAM: Female, 56 years old. PELVIC AND PERINEAL PAIN LMP: TECHNIQUE: Ultrasound TECHNICAL QUALITY: Adequate. COMPARISON: None. FINDINGS: The uterus is anteverted and is in a midline position. The uterus measures 6.5 x 4.9 x 2.6 cm. Normal uterine cervix. The endometrium measures 4 mm in thickness, and is . There is no demonstrated endometrial mass. There is no demonstrated myometrial mass. I.U.D. - The patient does not have an I.U.D. The right ovary is not visualized The left ovary is not visualized. There is no fluid in the cul-de-sac. The pre void volume of the bladder was ml. The post void volume of the bladder was ml. Polycystic ovary disease: No. US/Pelvic (Non ) IMPRESSION: Normal female pelvis. Electronically Signed: Hernan Valenzuela MD at 2:42 EDT ,
--- NOTE | 2022-01-21 16:28 | US_ITS ---
STUDY: ULTRASOUND OF THE FEMALE PELVIS - COMPLETE REASON FOR EXAM: Female, 56 years old. PELVIC AND PERINEAL PAIN LMP: TECHNIQUE: Ultrasound TECHNICAL QUALITY: Adequate. COMPARISON: None. FINDINGS: The uterus is anteverted and is in a midline position. The uterus measures 6.5 x 4.9 x 2.6 cm. Normal uterine cervix. The endometrium measures 4 mm in thickness, and is . There is no demonstrated endometrial mass. There is no demonstrated myometrial mass. I.U.D. - The patient does not have an I.U.D. The right ovary is not visualized The left ovary is not visualized. There is no fluid in the cul-de-sac. The pre void volume of the bladder was ml. The post void volume of the bladder was ml. Polycystic ovary disease: No. US/Transvaginal Non- IMPRESSION: Normal female pelvis. Electronically Signed: Hernan Valenzuela MD at 2:42 EDT ,
== END | disposition home or self-care (01) ==
LOC: US 16:26
PROVIDERS: PCP Family Medicine; Referring Provider Obstetrics & Gynecology; Visit Provider Obstetrics & Gynecology
DX: R10.2 Pelvic and perineal pain (principal)
CPT/HCPCS: 76830; 76856

== ENCOUNTER → 2022-03-06 | Outpatient (CLI) | payer OTHER, SELFPAY ==
--- NOTE | 2022-03-06 15:51 | RAD_ITS ---
STUDY: XR Wrist Min 3 Views REASON FOR EXAM: Female, 56 years old. PAIN TECHNIQUE: XR Wrist Min 3 Views RIGHT COMPARISON: 2.28.22 FINDINGS: There are no acute findings of the visualized distal radius and ulna. There are no acute findings of the radiocarpal articulation. Normal distal radioulnar articulation. Normal carpal bones. Normal carpal articulations. There is degenerative arthrosis of the carpometacarpal articulation of the thumb. Healing comminuted minimally impacted fracture of the base of the proximal phalanx of the first digit with intra-articular extension. There are no acute findings of the visualized metacarpal bones. The soft tissue structures are unremarkable. RAD/Wrist min 3 Views IMPRESSION: Healing comminuted minimally impacted fracture of the base of the proximal phalanx of the first digit with intra-articular extension. Electronically Signed: Timmy Rashid MD at 19:04 EDT ,
--- NOTE | 2022-03-06 15:51 | RAD_ITS ---
EXAM: XR LEFT FINGERS, 2 OR MORE VIEWS CLINICAL INDICATION: PAIN IN THUMB TECHNIQUE: Frontal, lateral and oblique views of the fingers of the left hand. This report was created using [employer] report generation technology. COMPARISON: 11.07.20 FINDINGS: BONES/JOINTS: Moderate first carpometacarpal joint arthrosis. No acute fracture. No subluxation. Normal alignment. No sclerotic or destructive changes observed. SOFT TISSUES: Unremarkable. No soft tissue swelling or gas. No radiopaque foreign body. RAD/Finger(s) Min 2 Views IMPRESSION: Moderate first carpometacarpal joint arthrosis. Electronically Signed: Timmy Rashid MD at 19:05 EDT ,
== END | disposition home or self-care (01) ==
LOC: MTRAD 15:50
PROVIDERS: PCP Family Medicine; Referring Provider Family Medicine; Visit Provider Family Medicine
DX: M79.645 Pain in left finger(s) (principal); M25.531 Pain in right wrist
CPT/HCPCS: 73110; 73140

== ENCOUNTER 2022-04-01 17:44 | Emergency (ER) | payer OTHER, SELFPAY ==
[2022-04-01 17:46] VITALS: BP 143/85; PULSE 81; RESP 16; TEMP 36.8; O2SAT 98; BMI 18.9
--- NOTE | 2022-04-01 17:59 | EDS_ITS ---
HPI History of Present Illness Chief Complaint: Upper Extremity Injury Informant: patient Occured/Mechanism Mechanism/Context: Yes fall Onset/Context/Timing Onset: Today (JPTA) Context: Sudden Onset Timing: Continuous Quality of Pain: Aching Location: R wrist Current Severity: Moderate Maximum Severity: Severe Worsened by: moving Relieved by: remaining still Associated Symptoms Associated Symptoms: Positive for Loss of Funtion; Negative for Parasthesia or Weakness Narrative Narrative: Patient was trying to get something out of a high cabinet and as result she stood on a nearby dehumidifier, it rolled out of the way causing her to fall onto right outstretched hand injuring her right wrist. No other injuries. [id number]. [facility] Medical History Abdominal pain ADHD Alcohol use Chronic pain syndrome DDD (degenerative disc disease) Difficulty swallowing History of trigger finger Migraine headache Neck pain Non-smoker Shingles Thrombophlebitis Trigger thumb of left hand Wears contact lenses Home Medications [id number]-minerals (Multiple Vitamin, Womens tablet) 1 tab PO DAILY 06/21/20 [History Last Taken Unknown] tramadol 50 mg tablet 50 - 100 mg PO Q8H PRN pain #20 tabs 04/01/21 [Rx Last Taken Unknown] lisdexamfetamine 50 mg capsule 50 mg PO DAILY ADHD 10/01/21 [History Last Taken Unknown] hydrocodone-acetaminophen 5-325mg 5mg-325mg 1 tab PO Q6H PRN PRN Pain 2 days #6 TABLETS 04/01/22 [Rx Last Taken Unknown] Allergy/AdvReac Type Severity Reaction Status Date / Time codeine AdvReac Vomiting Verified 04/01/22 18:23 epinephrine AdvReac VOMITTING Verified 04/01/22 18:23 AND PASSED OUT WHEN TAKEN IN COMB. WITH [facility] oxycodone HCl [From Percocet] AdvReac Itching Verified 04/01/22 18:23 Penicillins AdvReac Vomiting Verified 04/01/22 18:23 Family History Father CVA (cerebral vascular accident) Heart disease afib CVA 54 Grandmother Brain aneurysm Mother Heart disease AFIB Surgical History delivery delivered Fusion of spine History of appendectomy History of cervical spinal surgery History of endometrial ablation History of tonsillectomy Social History household members: spouse and children housing: house number of children: 3 current occupational status: employed Smoking Status: Never smoker alcohol intake: current alcohol intake frequency: a few times a week substance use type: does not use what type of physical activity do you participate in: running, bicycling and swimming frequency: 3-4 times per week do you feel safe at home: Yes ROS ROS ED Constitutional Constitutional ED: Denies chills or fever(s) Musculoskeletal Musculoskeletal: Reports extremity pain; Denies neck pain Integumentary Denies Abrasions, rash or wounds Neurologic Neurologic: Denies paresthesias or weakness EXAM Physical Exam Const Vital Signs: 04/01/22 17:46 Temperature 98.3 F Temperature Source Temporal Pulse Rate 81 Respiratory Rate 16 Blood Pressure 143/85 H Blood Pressure Mean 104 Pulse Ox 98 Oxygen Delivery Method Room Air Positive well nourished and well developed General Appearance ED: well developed and NAD Neck full ROM and supple Back/Spine normal ROM and normal to inspection Extremity Extremity Narrative: Limited range of motion of the right wrist due to pain, swelling, she is very tender at the distal radius and the distal ulna. There is no gross deformity. Not tender at the metacarpals or the snuffbox or elsewhere in the elbow/forearm/hand. Nontender at the shoulder. Other 3 extremities nontender, there is a minor abrasion at the right ankle and at the left volar forearm without any bony tenderness. Neuro oriented x3, no focal motor deficits and no sensory deficits noted Sensorium / Orientation: alert Psych mental status grossly normal and thought process normal Skin no wounds Rashes: no rashes MDM MDM MDM Narrative Medical decision making narrative: 3 view x-ray series of the right wrist on my interpretation shows a nondisplaced slightly angulated distal radius fracture. Patient was in a lot of pain after x-ray, she was given a [place] which she has had in the past and can tolerate as well as Zofran because it made her nauseated. She tolerated splinting and will follow-up with orthopedics as an outpatient and wrote her a prescription for a short course of medication as well. Procedures Upper Extremity Splints Upper Extremity Splint: Orthoglass and Volar (Short arm. Neurovascularly intact distally after placement.) Splint Fabrication: Fabricated Location: Right Discharge Plan Triage Chief Complaint: Upper Extremity Injury ED Provider: Misbah Bradford Dx/Rx/DC Orders Clinical Impression: Closed fracture of distal end of right radius Instructions: Wrist Fracture Prescriptions: New hydrocodone-acetaminophen [hydrocodone-acetaminophen] 5-325 mg tablet 1 tab PO Q6H PRN PRN (Reason: Pain) 2 Days Qty: 6 0RF No Action Multiple Vitamin, Womens Tablet 1 tab PO DAILY lisdexamfetamine 50 mg capsule 50 mg PO DAILY tramadol 50 mg tablet 50 - 100 mg PO Q8H PRN (Reason: pain) Qty: 20 0RF Primary Care Provider: Fredy Ac Referrals: Fredy Ac MD [Primary Care Provider] - Sourav Moore MD [Med Staff - Active Staff] - As soon as possible Disposition Disposition: Home, Self Care
--- NOTE | 2022-04-01 18:16 | RAD_ITS ---
EXAM: XR RIGHT WRIST COMPLETE, 3 OR MORE VIEWS CLINICAL INDICATION: injury TECHNIQUE: Frontal, lateral and oblique views of the right wrist. This report was created using [employer] report [employer] technology. COMPARISON: None. FINDINGS: BONES/JOINTS: There is a fracture of the distal radius with minimal impaction. There are degenerative changes at the first carpometacarpal joint. There are small calcific density superior to the radius which may represent an old injury of the ulnar styloid. SOFT TISSUES: Unremarkable. No soft tissue swelling or gas. No radiopaque foreign body. Fracture of the distal radius with minimal impaction. There are degenerative changes at the first carpometacarpal joint. Electronically Signed: Milton Burdick MD at 18:51 EDT , RAD/Wrist min 3 Views IMPRESSION: undefined
[2022-04-01] MEDS: HYDROcodone Bitartrate/Apap 5/325 Tablet PO (18:20)
[2022-04-01] MEDS: Ondansetron ODT 4 MG Tablet 8 MG PO (18:20)
[2022-04-01 19:29] VITALS: PULSE 85; TEMP 36.6
== END 2022-04-01 19:39 | disposition home or self-care (01) ==
PROVIDERS: Emergency Provider Emergency Medicine; PCP Family Medicine; Visit Provider Emergency Medicine
DX: S52.501A Unspecified fracture of the lower end of right radius, initial encounter for closed fracture (principal); S90.511A Abrasion, right ankle, initial encounter; W17.89XA Other fall from one level to another, initial encounter; G89.4 Chronic pain syndrome
CPT/HCPCS: 29125; 73110; 99284

== ENCOUNTER 2022-04-06 11:53 | Day surgery (SDC) | payer OTHER, SELFPAY ==
[2022-04-03 12:11] LABS: Hematocrit 38.1 % (37-47); Hemoglobin 12.6 g/dL (12.0-15.0); Mean Corp Hgb Conc 33.1 g/dL (32-36); Mean Corpuscular Hgb 32.8 pg (27.0-32.0); Mean Corpuscular Volume 99.2 fL (81-99); Mean Platelet Vol. 10.2 fl (6.2-12.0); Platelet Count 232 K/mm3 (150-450); RBC Distribution Width SD 47.3 fl (35.1-43.9); Red Blood Count 3.84 M/mm3 (4.2-5.4); White Blood Count 7.6 K/mm3 (4.4-11.0)
[2022-04-03 12:39] LABS: Anion Gap 4 (5-15); BUN 11 mg/dL (7-18); BUN/Creat Ratio 16.2 RATIO (10-20); Calcium,Total 10.1 mg/dL (8.5-10.1); Chloride 102 mmol/L (98-107); Creatinine, Serum 0.68 mg/dL (0.55-1.02); EST Glomerular Filtration Rate 95 mL/min (>60); Est Glom Filt Rate - Afr Amer 115 mL/min (>60); Glucose 103 mg/dL (74-106); Potassium 3.3 mmol/L (3.5-5.1); Sodium Level 136 mmol/L (136-145)
[2022-04-06] VITALS (7 sets, daily range): BP systolic 94–119; BP diastolic 47–72; PULSE 60–89; RESP 16–18; TEMP 36.6–36.8; O2SAT 93–100; BMI 17.5
[2022-04-06] MEDS: Lactated Ringers 1,000 ML 15 ML IV ×2 (12:25→15:16)
[2022-04-06] MEDS: Cefazolin 1 GM/50 ML BAG IV ×2 (14:01→16:42)
--- NOTE | 2022-04-06 14:10 | RAD_ITS ---
STUDY: INTRAOPERATIVE FLUOROSCOPY TECHNIQUE: The examination was performed with referring physician in attendance. Under fluoroscopic observation, fluoroscopic images were obtained. Radiologist was not present for the study. Radiologist did not perform the procedure. This dictation is for documentation of the radiation dosage only. There is no interpretation of the images. TOTAL NUMBER OF IMAGES: 1 COMPARISON: None RADIATION DOSE: 1.8 mGy FLUOROSCOPY TIME: 92 seconds REASON FOR EXAM: FX Female, 56 years old. FINDINGS: There is a metal sideplate transfixing the distal radius. There are cortical screws holding the plate in place. RAD/Wrist min 3 Views IMPRESSION: Fluoroscopic assistance images were obtained. Dictation for documentation purposes only. Electronically Signed: Timmy Rashid MD at 16:21 EDT ,
--- NOTE | 2022-04-06 15:33 | PCM.OP.BLANK ---
Problems Associated Problem List Diagnoses (1) Fracture, Colles, right, closed: Operative Report Date of Procedure: 04/06/22 Preoperative diagnosis: Right distal radius fracture comminuted Colles', 3 part Preoperative diagnosis: Same Operation: Open reduction internal fixation right distal radius fracture Surgeon: Dr. Sourav Moore Manager Copy: Maritza Jean PA-C Anesthesia general , Axillary N block Medications: Ancef 1 gm Indications for surgery: Please refer to dictated history and physical exam quality assurance assistant, physician central supply assistant was vital throughout the entire case. She help with patient positioning, reduction of fracture, maintenance of fracture reduction, exposure, plate and screw application and insertion, wound closure. Also with bandage and splint application. Without certified surgical technician surgical time would have been increased. Surgical outcome could have been less optimal. Procedure: After obtaining appropriate informed consent patient was taken to the operating room. Appropriate timeout was performed. Well-padded tourniquet applied to the operative upper arm. Ancef given IV. SCDs on lower extremities. Patient placed under general anesthesia. Reduction was attempted. Adequate closed reduction could not be maintained. Operative upper extremity was prepped padded draped in usual orthopedic sterile fashion for the procedure. Tourniquet was applied to 250 mmHg after the limb was exsanguinated. Volar approach was carried out longitudinally just over the FCR tendon. Careful dissection through skin subcutaneous tissue brought us down onto the FCR tendon. We took the FCR tendon ulnarly and the radial artery and soft tissues radially. This brought us down onto the pronator quadratus. This was sharply dissected off the bone radially. Fracture site was identified. Irrigated. Traction and manipulation with the help of the central supply assistant, fracture was nearly anatomically reduced. K wire was placed at the radial styloid to help maintain reduction. Volar AccuMed, Accu lock standard right VDR plate applied. And verified radiographically. Held in place with 2 K wires. 10? kickstand use proximally. We filled the distal row with locking screws in the plate under standard technique. We then removed the kickstand and applied the plate to the bone proximally and held it in the slotted hole with one screw, nonlocking screw. X-ray taken AP lateral and oblique showing very nice reduction and placement of the hardware. 2 locking screws were placed in the radial styloid through the guide system. Length verified. 2 further nonlocking screws were placed in the proximal plate. We verified our reduction under multiple x-ray views multiple, many of which were saved. Screw guide system for the plate removed. Wound was irrigated. Tourniquet let down. Bleeding controlled with the Bovie. No undue bleeding noted. Pronator quadratus repaired with 2-0 Vicryl over the plate. Skin repaired with interrupted inverted 2-0 Vicryl. Skin prep and Steri-Strips applied. Well-padded volar splint and dorsal splint applied. Sling applied. She was awoken from her anesthetic and transferred back to room bed in recovery room in satisfactory condition. This note was generated with [employer] dictation software. It may contain incorrect words, spelling, and punctuation that were not noted in checking the note before signing.
== END 2022-04-06 17:43 | disposition home or self-care (01) ==
LOC: SDC 11:55 → AC 11:55
PROVIDERS: Anesthesiology; PCP Family Medicine; Referring Provider Orthopaedic Surgery; Visit Provider Orthopaedic Surgery
PROC: (CPT 25609; principal; 2022-04-06 13:15)
DX: S52.531A Colles' fracture of right radius, initial encounter for closed fracture (principal); W17.89XA Other fall from one level to another, initial encounter; R03.0 Elevated blood-pressure reading, without diagnosis of hypertension; F90.9 Attention-deficit hyperactivity disorder, unspecified type; Z79.899 Other long term (current) drug therapy
CPT/HCPCS: 25609; 64417; 36415; 73110; 76000; 80048; 85027; 87426; C1713; C9803; J7120; J2405

== ENCOUNTER → 2022-04-14 | Outpatient (CLI) | payer OTHER, SELFPAY ==
--- NOTE | 2022-04-14 11:18 | RAD_ITS ---
STUDY: X-RAY - RIGHT WRIST REASON FOR EXAM: Female, 56 years old. ORIF of distal radius. Follow-up. TECHNIQUE: 3 view(s) of the wrist were obtained. COMPARISON: 04/06/2022. FINDINGS: Osteopenia. Volar plate and screw fixation of the distal radius unchanged. Interval mild callus formation. Mild arthrosis of the radiocarpal articulation. Mild arthrosis of the distal radioulnar joint. Separate ossification center for the ulnar styloid. Moderate arthrosis of the radial carpal row of the wrist. Severe arthrosis of the first CMC joint with small intra-articular osteochondral bodies. Moderate arthrosis of the visualized MCP and IP joints. The soft tissue structures are unremarkable. RAD/Wrist min 3 Views IMPRESSION: Osteopenia with stable ORIF of distal radius. Diffuse osteoarthritic changes as described. No acute abnormality or complication. Electronically Signed: Vinny Padgett, at 13:38 EDT ,
== END | disposition home or self-care (01) ==
LOC: MTRAD 11:13
PROVIDERS: PCP Family Medicine; Referring Provider Physician Assistant; Visit Provider Physician Assistant
DX: S52.531D Colles' fracture of right radius, subsequent encounter for closed fracture with routine healing (principal)
CPT/HCPCS: 73110

== ENCOUNTER → 2022-05-13 | Outpatient (CLI) | payer OTHER, SELFPAY ==
--- NOTE | 2022-05-13 10:03 | RAD_ITS ---
STUDY: X-RAY - RIGHT WRIST REASON FOR EXAM: Right wrist pain and swelling, right wrist fracture surgery 04/06/2022. TECHNIQUE: 3 view(s) of the wrist were obtained. COMPARISON: Radiographs 04/14/2022. FINDINGS: There is intact orthopedic hardware transfixing a distal radial fracture without interval change of alignment and position. Normal radiocarpal articulation. Normal distal radioulnar articulation. Normal carpal bones. Normal carpal articulations. There are marginal osteophytes and joint space narrowing of the carpometacarpal articulation of the thumb. Normal second through fifth carpometacarpal articulations. Normal visualized metacarpal bones. There is a corticated ossicle at the distal aspect of the ulnar styloid process as on the prior study. RAD/Wrist min 3 Views IMPRESSION: No significant change of ORIF of right wrist fracture. Arthrosis of the first carpometacarpal articulation. Electronically Signed: Frank Farmer MD at 10:35 EDT ,
== END | disposition home or self-care (01) ==
PROVIDERS: PCP Family Medicine; Referring Provider Physician Assistant; Visit Provider Physician Assistant
DX: S52.531D Colles' fracture of right radius, subsequent encounter for closed fracture with routine healing (principal)
CPT/HCPCS: 73110

== ENCOUNTER → 2022-06-08 | Outpatient (CLI) | payer OTHER, SELFPAY ==
--- NOTE | 2022-06-08 10:11 | RAD_ITS ---
STUDY: X-RAY - LEFT KNEE REASON FOR EXAM: Female, 56 years old. Pain. TECHNIQUE: 4 view(s) of the knee. COMPARISON: 06/10/2020. FINDINGS: Normal visualized distal femur. Normal visualized proximal tibia and fibula. Normal proximal tibiofibular articulation. Mild medial compartmental arthrosis. Normal lateral femorotibial compartment. Mild arthrosis of the patellofemoral compartment. The soft tissue structures are unremarkable. RAD/Knee 4 or More Views IMPRESSION: Mild medial and patellofemoral compartmental arthrosis. No acute abnormality, chondrocalcinosis or erosive changes. Electronically Signed: Vinny Padgett, at 8:28 EDT ,
== END | disposition home or self-care (01) ==
PROVIDERS: PCP Family Medicine; Referring Provider Family Medicine; Visit Provider Family Medicine
DX: M25.562 Pain in left knee (principal)
CPT/HCPCS: 73564

== ENCOUNTER → 2022-06-22 | Outpatient (CLI) | payer OTHER, SELFPAY ==
--- NOTE | 2022-06-22 10:33 | RAD_ITS ---
STUDY: X-RAY - RIGHT WRIST REASON FOR EXAM: Female, 56 years old. Radial fracture. TECHNIQUE: 3 view(s) of the wrist were obtained. COMPARISON: Right wrist, 05/13/2022. FINDINGS: Again seen is a plate and screws along the volar aspect of the distal radius. Again seen is a nondisplaced fracture. There is no change in alignment. 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 Normal radiocarpal articulation. Normal distal radioulnar articulation. Normal carpal bones. There is degenerative arthrosis of the carpal articulations. There is degenerative arthrosis of the carpometacarpal articulation of the thumb. Normal second through fifth carpometacarpal articulations. Normal visualized metacarpal bones. The soft tissue structures are unremarkable. RAD/Wrist min 3 Views IMPRESSION: No major interval change. Electronically Signed: Alexi Banegas DO at 17:57 EDT ,
== END | disposition home or self-care (01) ==
LOC: MTRAD 10:32
PROVIDERS: PCP Family Medicine; Referring Provider Physician Assistant; Visit Provider Physician Assistant
DX: S52.531D Colles' fracture of right radius, subsequent encounter for closed fracture with routine healing (principal)
CPT/HCPCS: 73110

== ENCOUNTER 2022-06-24 10:00 | Outpatient (RCR) | payer OTHER, SELFPAY ==
--- NOTE | 2022-05-27 10:14 | HP.OTEVAL ---
Patient's Visit Information NANCY BURKS is a 56 year old F, referred to Occupational Therapy by Dr. Sourav Moore MD, with a diagnosis of Right radius fx. ulnar styloid chip fx. Date of Evaluation: 05/27/22 Occupational Therapist: Nicole Tavera, PAULINAR/Nicki, CHT - Subjective This 56 year old female was seen for OT eval with dx of right radius colles fx DOI. March, and sx on 04/06/22 ORIF. pt states she suffered fall in Apr. pt states she is doing better but needs more ROM and strength as she is limited with ADls and IADLs. 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 pt active in biking, hiking and running. Pt would like to return to her PLOF. - ADLs Eating: Use silverware - Pain right wrist 3 Pain Intensity Range: 2, 3 - ROM Forearm: right supination 60 left 75 Wrist: right 45/25 left 60/45 ROM Comments: right RD 15 UD [address] 15 UD 30 - Strength [employer] Sales Consultant: right 10# left 40# Lateral Pinch: right 2# left unable due to sever OA deformities - Sensation Sensation Comments: denies - Quick DASH-Disab of Arm,Shoulder& Hand Quick DASH Score: 30.0000 - Goals Goal:: PT will demo an increase in radiology therapist strength by 20# to increase independent with basic occupations of daily living to return pt to PLOF by D/C. Pt will demo an increase in lateral and tripod pinch by 2# to increase pts independent with opening baggies, containers at PLOF by D/C. Goal:: Pt will demo an increase in wrist ROM equal to unaffected wrist to return pt to PLOF with grooming, dressing and home mtg tasks by D/C. Pt will demo an increase in forearm supination by 15*or greater to increase pts ind. With ADls and IADLS by d/c Goal:: pt will report no pain greater than 2/10 with use of right hand with ADLs and IADls by d.c - Rehabilitation General Assessment: Pt arrives 7 weeks and 2 days s/p from a ORIF of right radius. pt demo with a decrease in right wrist ROM, and weakness limiting her ind. with ADLs and IADLs. Pt would benefit from skilled OT services 2x week for 3-4weeks to return pt to PLOF. Today therapist reviewed POC ed. pt on PROM and AROM exercise- pt demo understanding and agree to POC. Rehabilitation Potential: Good - Anticipated Interventions A/AAROM/PROM, Strengthening, Orthoses, Joint Protection/Energy Conservation, Fine Motor Coord/Genaro, Education re assistive Equipment, Education re Diagnosis, Home Program - Visit Plan Frequency: 1-2x /Week Duration: 4 Weeks TEXT: Thank you for the opportunity to evaluate your patient. For Medicare and Medicare HMO plans, please review the plan of care and approve it. It will need to be FAXED BACK to us at [phone] for Medicare purposes. Please let me know if there are questions or concerns regarding this plan of care. Physician Signature: Date:
--- NOTE | 2022-06-24 10:39 | OTREVAL_ITS ---
Dr. Sourav Moore MD, It has been my pleasure to treat NANCY BURKS over the last 9 visits for Right radius fx. ulnar styloid chip fx. Please see the progress note below for an update on the occupational therapy plan of care! Subjective: pt arrives states she is doing ok- pain limits her mostly on ulnar side of wrist-. wrist is feeling good- still can not open solitario back- pt states she pain was limiting factor when forearm is in supination- therapist provided bullseye brace to provide support- pt states pain does decrease with use of the brace. pt states she can perform most of her ADLs at ANDRE level. 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 right lateral pinch unable (cmc arthritis) left 4#. right wrist 65/50. right forearm supination WFL- pt continues to struggle with TFCC - pt is using a TFCC bullseye wrist brace. pt has returned to biking, running and work. pt is asking about sx (cmc arthroplasty) on her right thumb as she has noticed decrease IND Plan Plan: pt to return to for follow up Goals - Goals Patient Goals: Regain Mobility, Improve Fine Motor Skills, Use Hand/Wrist/Arm Normally Again, Be More Independent in ADLS Goal:: PT will demo an increase in photoresist printer strength by 20# to increase independent with basic occupations of daily living to return pt to PLOF by D/C. Pt will demo an increase in lateral and tripod pinch by 2# to increase pts independent with opening baggies, containers at PLOF by D/C. Goal:: Pt will demo an increase in wrist ROM equal to unaffected wrist to return pt to PLOF with grooming, dressing and home mtg tasks by D/C. Pt will demo an increase in forearm supination by 15*or greater to increase pts ind. With ADls and IADLS by d/c Goal:: pt will report no pain greater than 2/10 with use of right hand with ADLs and IADls by d.c Anticipated Interventions Anticipated Interventions: A/AAROM/PROM, Strengthening, Orthoses, Joint Protection/Energy Conservation, Fine Motor Coord/Genaro, Education re assistive Equipment, Education re Diagnosis, Home Program Please do not hesitate to contact me at [phone] by phone or if you have questions or concerns regarding this new plan of care! Sincerely, Nicole Tavera, OTR/L, CHT
--- NOTE | 2022-08-05 14:59 | HP.OTDCSUM ---
It has been my pleasure to treat NANCY BURKS under orders from Dr. Sourav Moore MD, for the diagnosis of Right radius fx. ulnar styloid chip fx for a total of 9 visit(s). Please see the following information for a summary of their discharge status. 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 right lateral pinch unable (cmc arthritis) left 4#. right wrist 65/50. right forearm supination WFL- pt continues to struggle with TFCC - pt is using a TFCC bullseye wrist brace. pt has returned to biking, running and work. pt is asking about sx (cmc arthroplasty) on her right thumb as she has noticed decrease IND Patient Goals: Regain Mobility, Improve Fine Motor Skills, Use Hand/Wrist/Arm Normally Again, Be More Independent in ADLS Goal:: PT will demo an increase in lift slab operator strength by 20# to increase independent with basic occupations of daily living to return pt to PLOF by D/C. Pt will demo an increase in lateral and tripod pinch by 2# to increase pts independent with opening baggies, containers at PLOF by D/C. Goal:: Pt will demo an increase in wrist ROM equal to unaffected wrist to return pt to PLOF with grooming, dressing and home mtg tasks by D/C. Pt will demo an increase in forearm supination by 15*or greater to increase pts ind. With ADls and IADLS by d/c Goal:: pt will report no pain greater than 2/10 with use of right hand with ADLs and IADls by d.c Plan: pt to return to for follow up If there are questions or concerns regarding this patient's occupational therapy, please fell free to call me at [phone]. Thank you for the referral of this patient. Sincerely, Nicole Tavera, OTR/L, CHT
== END 2022-06-24 19:00 | disposition home or self-care (01) ==
LOC: OT 10:00
PROVIDERS: PCP Family Medicine; Referring Provider Orthopaedic Surgery; Visit Provider Orthopaedic Surgery
DX: S52.531D Colles' fracture of right radius, subsequent encounter for closed fracture with routine healing (principal); X58.XXXD Exposure to other specified factors, subsequent encounter
CPT/HCPCS: 97110; 97140; 97166; 97530

== ENCOUNTER → 2022-10-29 | Outpatient (CLI) | payer OTHER, SELFPAY ==
--- NOTE | 2022-10-29 10:35 | RAD_ITS ---
STUDY: X-RAY - LUMBAR SPINE REASON FOR EXAM: Female, 57 years old. Pain TECHNIQUE: 2 view(s) of the lumbar spine were obtained. COMPARISON: None FINDINGS: There is anatomic alignment of the lumbar spine from L1 to L4. There is a surgically stabilized grade 1 spondylolisthesis at L4-5. There is anatomic alignment from L1 to S1. There is a previous pedicle screw fusion surgery at L4 and L5. Hardware is intact and free of complication Normal lumbar lordosis. There is no substantial scoliosis. There is multilevel endplate spondylosis of the lumbar vertebrae. There is multi-level degenerative disc disease with multi-level disc space narrowing. Soft tissues show evidence of previous tubal ligation RAD/Lumbar Spine 2 or 3 Views IMPRESSION: Degenerative and postsurgical changes, no acute findings Electronically Signed: Paul Anderson MD at 11:19 EST ,
== END | disposition home or self-care (01) ==
LOC: MTRAD 10:35
PROVIDERS: PCP Family Medicine; Referring Provider Orthopaedic Surgery; Visit Provider Orthopaedic Surgery
DX: M54.50 Low back pain, unspecified (principal)
CPT/HCPCS: 72100

== ENCOUNTER → 2022-11-23 | Outpatient (CLI) | payer OTHER, SELFPAY ==
--- NOTE | 2022-11-23 10:15 | MRI_ITS ---
STUDY: MRI LUMBAR SPINE WITHOUT CONTRAST REASON FOR EXAM: Female, 57 years old. Left leg radiculopathy TECHNIQUE: Standardized fat and water weighted pulse sequences were obtained in the sagittal and axial planes. COMPARISON: MRI lumbar spine without contrast 10/10/2018. FINDINGS: T11-T12 and T12-L1: (Sagittal only). Normal endplates. Normal disc height, hydration and morphology. No ventral extradural defect. Normal central canal and bilateral intervertebral neural foramina. Normal lumbar lordosis. There is no substantial scoliosis. Normal conus medullaris that terminates at the lower T12 vertebral body level. L1-2: Normal endplates. Normal disc height, hydration and morphology. Normal bilateral facet joints. Normal central canal and bilateral lateral recesses. Normal bilateral intervertebral neural foramina. L2-3: Normal endplates. Normal disc height, hydration and morphology. Normal bilateral facet joints. Normal central canal and bilateral lateral recesses. Normal bilateral intervertebral neural foramina. L3-4: Normal endplates. Mild disc space height narrowing is a new finding. Small ventral extradural defect due to posterior bulging annulus. Mild asymmetric degenerative facet arthropathy. Mild dorsal epidural lipomatosis. Moderate central canal stenosis with an AP canal diameter of 6.6 mm. Asymmetric posterior ligamenta flava hypertrophy, left greater than right. Normal bilateral lateral recesses. Mild stenosis of the bilateral intervertebral neural foramina. L4-5: Disc implant inside the disc space. Pedicular screws and rods causing signal distortion artifacts. Grade 1 anterolisthesis of L4 on L5 is unchanged. Pronounced central canal stenosis with an AP canal diameter of 5 mm. Normal bilateral lateral recesses. Mild stenosis of the bilateral intervertebral neural foramina. L5-S1: Normal endplates. Normal disc height, hydration and morphology. Mild left degenerative facet arthropathy. Normal right facet joint. Normal central canal and bilateral lateral recesses. Normal bilateral intervertebral neural foramina. Normal visualized sacral ala. Normal visualized paraspinous soft tissue structures. MRI/Spine Lumbar (Routine) IMPRESSION: 1. Pronounced central canal stenosis at L4-L5 disc space level with an AP canal diameter of 5 mm, grade 1 degenerative anterolisthesis of L4 on L5 disc implant pedicular screws and rods causing some signal distortion artifacts. This level is unchanged. 2. Moderate central canal stenosis at L3-L4 disc space level with an AP canal diameter of 6.6 mm, previously 10 mm, asymmetric posterior ligamenta flava hypertrophy, left greater than right and mild stenosis of the bilateral intervertebral neural foramina. 3. Mild left degenerative facet arthropathy. 4. No MRI evidence of lumbar extruded disc fragment or disc protrusion. Electronically Signed: Alfonzo Enamorado MD at 14:45 EDT ,
== END | disposition home or self-care (01) ==
LOC: MRI 10:15
PROVIDERS: PCP Family Medicine; Referring Provider Orthopaedic Surgery; Visit Provider Orthopaedic Surgery
DX: M54.16 Radiculopathy, lumbar region (principal)
CPT/HCPCS: 72148

== ENCOUNTER → 2022-12-21 | Outpatient (CLI) | payer OTHER, SELFPAY ==
--- NOTE | 2022-12-21 18:20 | RAD_ITS ---
INDICATION: RADICULOPATHY OF LUMBAR EXAMINATION/TECHNIQUE: X-RAY - XR Spine Lumbar Min 4 Views COMPARISON: 10/29/2022 lumbar radiographs FINDINGS: 4 views of the lumbar spine, to include flexion and extension images. BONES: Again noted anterolisthesis at the L4-L5 level of approximately 9 mm with L4-L5 bilateral julia and pedicle screw constructs in place, no obvious hardware complication. No change in anterolisthesis with flexion and extension maneuvers Otherwise, anatomic alignment without evidence of fracture or subluxation. Intervertebral disc spacer in place. No concerning bony lesion or abnormal sclerosis to suggest lesion. DISCS/JOINTS: Moderate lower lumbar degenerative change. SOFT TISSUES: Unremarkable. RAD/L/S Spine Min 4 Views IMPRESSION: Stable lumbar spine. If there is persistent clinical concern for spine fracture and this is a trauma patient, recommend dedicated lumbar spine CT. Electronically Signed: Tino Sylvester MD at 22:31 EDT ,
--- NOTE | 2022-12-21 18:35 | CT_ITS ---
INDICATION: LUMBAR RADICULOPATHY EXAMINATION/TECHNIQUE: X-RAY - CT Spine Lumbar W/O Contrast Injection COMPARISON: lumbar radiographs same day and 10/29/2022. FINDINGS: Serial CT axial images through the lumbar spine with coronal and sagittal reformatted series. BONES: Again noted anterolisthesis at the L4-L5 level of approximately 7 mm with L4-L5 bilateral julia and pedicle screw constructs in place, no obvious hardware complication. Intervertebral disc spacer in place. Although there is metallic streak artifact at this level, appears to be no more than mild caudal neuroforaminal narrowing at operative level. Otherwise, anatomic alignment without evidence of fracture or subluxation. No concerning bony lesion or abnormal sclerosis to suggest lesion. DISCS/JOINTS: Moderate lower lumbar degenerative change. SOFT TISSUES: Unremarkable. CT/Spine Lumbar without Contrast IMPRESSION: Stable lumbar spine without obvious fracture. Although there is metallic streak artifact at this level, appears to be no more than mild caudal neuroforaminal narrowing at operative level. Electronically Signed: Tino Sylvester MD at 22:56 EDT ,
== END | disposition home or self-care (01) ==
LOC: CT 12-22 10:19
PROVIDERS: PCP Family Medicine
DX: M54.16 Radiculopathy, lumbar region (principal)
CPT/HCPCS: 72110; 72131

== ENCOUNTER → 2023-01-18 | Outpatient (CLI) | payer OTHER, SELFPAY ==
--- NOTE | 2023-01-18 15:37 | BI_ITS ---
MAMMOGRAPHY - BILATERAL SCREENING REASON FOR EXAM: Female, 57 years old. Routine annual screening examination. PERTINENT HISTORY: Non-contributory. TECHNIQUE: Digital bilateral breast roberto (3D mammographic acquisition) in the CC and MLO projections. 2-D mediolateral oblique (MLO) and craniocaudad (CC) views of both breasts were obtained. CAD: Full Field Digital Mammography with Computer Added Detection was performed. COMPARISON: Comparison is made with prior study dated February 07, 2021 and July 21, 2017. FINDINGS: Breast Composition: The breasts are extremely dense, which lowers the sensitivity of mammography. There are no dominant masses or suspicious calcifications. No other significant abnormalities are identified. There has been no significant change since the prior study. BI/SCRN MAMM (CAD)W/ROBERTO BILAT IMPRESSION: Stable bilateral screening mammogram. Yearly follow-up mammogram recommended. (A) ASSESSMENT CATEGORY: BIRADS Category 1: Negative. A letter regarding these results will be sent to the patient by the facility within 30 days. Approximately 10% of breast cancers are not detected by mammography. A normal mammogram should not delay biopsy of a clinically suspicious abnormality. [id number] Electronically Signed: Phil Mix MD at 9:03 EDT ,
== END | disposition home or self-care (01) ==
LOC: OPBI 15:36
PROVIDERS: PCP Family Medicine; Referring Provider Family Medicine; Visit Provider Family Medicine
DX: Z12.31 Encounter for screening mammogram for malignant neoplasm of breast (principal)
CPT/HCPCS: 77063; 77067

== ENCOUNTER → 2023-02-24 | Outpatient (CLI) | payer OTHER, SELFPAY ==
--- NOTE | 2023-02-24 14:24 | NEURO ---
NCS and/or EMG Patient Report Ordering Doctor: Julienne Honeycutt DATE OF SERVICE: 02/24/23 Conchis presents electrodiagnostic testing of the left lower limb. She reports increasing left leg pain and weakness over the past 6 months. Electrodiagnostic findings: Left peroneal motor nerve demonstrates normal distal latency, amplitude and conduction velocity. Normal left tibial motor response. Normal tibial and peroneal F waves. Sensory responses are within normal limits. H reflex borderline prolonged bilaterally. Needle EMG testing showed no evidence of denervation in the muscles tested. Motor unit action potentials were normal amplitude and duration. There is decreased recruitment in the left tibialis anterior, though this may be compromised by submaximal effort. Electrodiagnostic Assessment: This is an essentially normal study of the left lower limb. There is no electrodiagnostic evidence for lumbar radiculopathy or peripheral neuropathy. Multi Select Codes Neurology Neurology Interp Codes: 79806-16 Musc test done w/n test comp (interp) and 72820-93 Nrv cndj test 7-8 studies (interp)
== END | disposition home or self-care (01) ==
LOC: PSN 12:19
PROVIDERS: PCP Family Medicine
DX: M54.16 Radiculopathy, lumbar region (principal)
CPT/HCPCS: 95886; 95910

== ENCOUNTER → 2023-04-28 | Outpatient (CLI) | payer OTHER, SELFPAY ==
[2023-04-28 13:49] LABS: Amphetamine Urine VISTA POSITIVE (<1000 ng/mL); Barbiturate Urine VISTA NEGATIVE (< 200 ng/mL); Benzodiazepine Urine VISTA NEGATIVE (< 200 ng/mL); Cocaine Urine VISTA NEGATIVE (< 300 ng/mL); Ecstacy Urine VISTA NEGATIVE (< 500 ng/mL); Methadone Urine VISTA NEGATIVE (< 300 ng/mL); PCP Urine VISTA NEGATIVE (< 25 ng/mL); THC Urine VISTA NEGATIVE (< 50 ng/mL); Vista UDS pH Range 6
== END | disposition home or self-care (01) ==
PROVIDERS: PCP Family Medicine; Referring Provider Anesthesiology Pain Medicine; Visit Provider Anesthesiology Pain Medicine
DX: F11.20 Opioid dependence, uncomplicated (principal)
CPT/HCPCS: 80307

== ENCOUNTER → 2023-04-30 | Outpatient (CLI) | payer OTHER, SELFPAY ==
--- NOTE | 2023-04-30 09:20 | NM_ITS ---
CLINICAL: 57-year-old female with history of back discomfort status post cervical, lumbar fusion. WHOLE BODY 99m Tc MDP RADIONUCLIDE BONE SCINTIGRAPHY COMPARISON: CT of the lumbar spine report 04/22/2023 FINDINGS: Following the intravenous administration of 26.1 mCi of 99m Tc MDP, whole body bone images reveal: 1. Facilitated radiotracer distribution is noted in the fifth lumbar vertebra and first sacral segment posteriorly on the left and right. 2. Enhanced radiopharmaceutical concentration is visualized in the midupper cervical spine posteriorly on the left and right, the fourth and 12th thoracic vertebra, the sternoclavicular compartments of both shoulders, the bilateral wrists, the patellofemoral compartment of the right knee. 3. The remaining skeletal structures are scintigraphically unremarkable with normal-appearing renal images and urinary bladder activity identified. Prominent uptake is noted in the sternomanubrial synchondrosis most consistent with normal physiologic distribution of the radiotracer. NM/Bone Scan Three Phase IMPRESSION: 1. The increase in tracer uptake noted in the fifth lumbar vertebra and first sacral segment most likely represent post operative change. If infection is a diagnostic consideration, correlation with labeled leukocyte imaging may be of benefit. 2. Degenerative arthritis is defined in the cervical and thoracic spine, bilateral shoulders, the right height left wrists and right knee. Electronically Signed: Khoa Shaffer, at 10:24 EDT ,
== END | disposition home or self-care (01) ==
PROVIDERS: PCP Family Medicine
DX: R93.7 Abnormal findings on diagnostic imaging of other parts of musculoskeletal system (principal); Z98.1 Arthrodesis status
CPT/HCPCS: 78315; A9503

== ENCOUNTER → 2023-06-18 | Outpatient (CLI) | payer OTHER, SELFPAY ==
--- NOTE | 2023-06-18 15:47 | MRI_ITS ---
EXAM: MR CERVICAL SPINE WITHOUT INTRAVENOUS CONTRAST CLINICAL INDICATION: SPINAL STENOSIS, nuc med report also scanned in, neck pain, hx of neck surgery TECHNIQUE: Multiplanar and multisequence MR images of the cervical spine without intravenous contrast were performed. COMPARISON: Three-phase bone scan, 04/30/2023; CT cervical spine, 02/12/2021; MRI cervical spine, 05/16/2014. FINDINGS: VERTEBRAE: Bony fusion better demonstrated on comparison CT spanning from C3 through C7 with discectomies at each level, anterior plate-screw fixation at C3-C4, multilevel laminectomy particularly at C6 and C7, and posterior fusion hardware with associated susceptibility demonstrated at C5-C7. No acute fracture. No marrow signal abnormality. SPINAL CORD: Unremarkable in signal and morphology. SOFT TISSUES: No significant abnormality. No prevertebral soft tissue swelling. LYMPH NODES: No significant abnormality. There is no cervical adenopathy. DISCS/SPINAL CANAL/NEURAL FORAMINA: C2-C3: Severe bilateral facet arthrosis and disc bulge. Mild spinal canal stenosis and moderate to severe bilateral neural foraminal narrowing. C3-C4: Operative changes. No significant spinal canal stenosis. Lateral facet and uncovertebral joint arthrosis with mild left neural foraminal narrowing. C4-C5: Bilateral facet and uncovertebral joint arthrosis. Postoperative changes. No spinal canal stenosis or neural foraminal narrowing. C5-C6: Postoperative changes. Endplate osteophytosis with bony ridge resulting in mild spinal canal stenosis narrowing the ventral CSF space. Facet and uncovertebral joint arthrosis with at least mild bilateral neural foraminal narrowing. C6-C7: No significant abnormality. No spinal canal stenosis or neural foraminal narrowing. C7-T1: No significant abnormality. No spinal canal stenosis or neural foraminal narrowing. IMPRESSION: Bony fusion better demonstrated on comparison CT spanning from C3 through C7 with discectomies at each level, anterior plate-screw fixation at C3-C4, multilevel laminectomy particularly at C6 and C7, and posterior fusion hardware with associated susceptibility demonstrated at C5-C7. Degenerative changes with mild multilevel canal and neural foraminal stenosis. No spinal cord signal abnormality. EXAM: MR THORACIC SPINE WITHOUT INTRAVENOUS CONTRAST CLINICAL INDICATION: SPINAL STENOSIS, nuc med report also scanned in, neck pain, hx of neck surgery TECHNIQUE: Multiplanar and multisequence MR images of the thoracic spine without intravenous contrast. COMPARISON: Three-phase bone scan, 04/30/2023. FINDINGS: VERTEBRAE: Multilevel endplate osteophytosis and multilevel facet arthrosis. Mild Modic type I endplate signal changes superiorly at T11 and inferiorly at T10. Otherwise, no suspicious marrow or cortical signal abnormalities in the thoracic spine. No fracture. Normal alignment. There is preservation of the normal thoracic kyphosis. No scoliosis. DISCS/SPINAL CANAL/NEURAL FORAMINA: Small disc herniation at T10-T11. No significant spinal canal or neural foraminal stenosis throughout the spine. SPINAL CORD: No significant abnormality. Normal in signal and morphology. Normal conus medullaris. SOFT TISSUES: No significant abnormality. MRI/Spine Cervical (Routine) IMPRESSION: Mild degenerative changes in the thoracic spine. No acute abnormalities. Electronically Signed: Aaron Hawkins DO at 23:46 EDT ,
--- NOTE | 2023-06-18 16:20 | MRI_ITS ---
EXAM: MR CERVICAL SPINE WITHOUT INTRAVENOUS CONTRAST CLINICAL INDICATION: SPINAL STENOSIS, nuc med report also scanned in, neck pain, hx of neck surgery TECHNIQUE: Multiplanar and multisequence MR images of the cervical spine without intravenous contrast were performed. COMPARISON: Three-phase bone scan, 04/30/2023; CT cervical spine, 02/12/2021; MRI cervical spine, 05/16/2014. FINDINGS: VERTEBRAE: Bony fusion better demonstrated on comparison CT spanning from C3 through C7 with discectomies at each level, anterior plate-screw fixation at C3-C4, multilevel laminectomy particularly at C6 and C7, and posterior fusion hardware with associated susceptibility demonstrated at C5-C7. No acute fracture. No marrow signal abnormality. SPINAL CORD: Unremarkable in signal and morphology. SOFT TISSUES: No significant abnormality. No prevertebral soft tissue swelling. LYMPH NODES: No significant abnormality. There is no cervical adenopathy. DISCS/SPINAL CANAL/NEURAL FORAMINA: C2-C3: Severe bilateral facet arthrosis and disc bulge. Mild spinal canal stenosis and moderate to severe bilateral neural foraminal narrowing. C3-C4: Operative changes. No significant spinal canal stenosis. Lateral facet and uncovertebral joint arthrosis with mild left neural foraminal narrowing. C4-C5: Bilateral facet and uncovertebral joint arthrosis. Postoperative changes. No spinal canal stenosis or neural foraminal narrowing. C5-C6: Postoperative changes. Endplate osteophytosis with bony ridge resulting in mild spinal canal stenosis narrowing the ventral CSF space. Facet and uncovertebral joint arthrosis with at least mild bilateral neural foraminal narrowing. C6-C7: No significant abnormality. No spinal canal stenosis or neural foraminal narrowing. C7-T1: No significant abnormality. No spinal canal stenosis or neural foraminal narrowing. IMPRESSION: Bony fusion better demonstrated on comparison CT spanning from C3 through C7 with discectomies at each level, anterior plate-screw fixation at C3-C4, multilevel laminectomy particularly at C6 and C7, and posterior fusion hardware with associated susceptibility demonstrated at C5-C7. Degenerative changes with mild multilevel canal and neural foraminal stenosis. No spinal cord signal abnormality. EXAM: MR THORACIC SPINE WITHOUT INTRAVENOUS CONTRAST CLINICAL INDICATION: SPINAL STENOSIS, nuc med report also scanned in, neck pain, hx of neck surgery TECHNIQUE: Multiplanar and multisequence MR images of the thoracic spine without intravenous contrast. COMPARISON: Three-phase bone scan, 04/30/2023. FINDINGS: VERTEBRAE: Multilevel endplate osteophytosis and multilevel facet arthrosis. Mild Modic type I endplate signal changes superiorly at T11 and inferiorly at T10. Otherwise, no suspicious marrow or cortical signal abnormalities in the thoracic spine. No fracture. Normal alignment. There is preservation of the normal thoracic kyphosis. No scoliosis. DISCS/SPINAL CANAL/NEURAL FORAMINA: Small disc herniation at T10-T11. No significant spinal canal or neural foraminal stenosis throughout the spine. SPINAL CORD: No significant abnormality. Normal in signal and morphology. Normal conus medullaris. SOFT TISSUES: No significant abnormality. MRI/Spine Thoracic (Routine) IMPRESSION: Mild degenerative changes in the thoracic spine. No acute abnormalities. Electronically Signed: Aaron Hawkins DO at 23:47 EDT ,
== END | disposition home or self-care (01) ==
LOC: MRI 15:34
PROVIDERS: PCP Family Medicine
DX: M48.02 Spinal stenosis, cervical region (principal); M43.22 Fusion of spine, cervical region; M54.16 Radiculopathy, lumbar region; Z98.1 Arthrodesis status; R29.898 Other symptoms and signs involving the musculoskeletal system
CPT/HCPCS: 72141; 72146

== ENCOUNTER → 2023-08-11 | Outpatient (CLI) | payer OTHER, SELFPAY ==
[2023-08-11 09:16] LABS: Bacteria 0 SEEN /hpf (None Seen); Mucous, Urine 0 SEEN /hpf (<or=2+); Red Blood Cells-Urine 0 SEEN /hpf (0-5); White Blood Cells 0 SEEN /hpf (0-5)
[2023-08-11 10:41] LABS: Color, Urine Yellow (Yellow); Glucose, Dipstick Normal (Normal); Ketone-Dipstick Negative (Negative); Leukocyte Esterase-Dipstick Negative /ul (Negative); Nitrite-Dipstick Negative (Negative); Occult Blood-Urine Negative /ul (Negative); Protein-Dipstick Negative (Negative); Urine Bilirubin Dipstick Negative (Negative); Urine Clarity Clear (Clear); Urine Urobilinogen Normal (Normal)
[2023-08-11 10:48] LABS: Squamous Epithelial Cells - UA 0-5 SEEN /hpf (5-10)
[2023-08-11 11:02] LABS: Absolute Lymphocyte Count 2.24 X10^3/uL (0.83-4.51); Absolute Neutrophil Count 2.2 X10^3/uL (2.0-7.7); Basophil# 0.08 X10^3/uL; Basophil% 1.4 % (0-1); Eosinophil# 0.38 X10^3/uL; Eosinophils% 6.7 % (0-5); Hematocrit 40.6 % (37-47); Hemoglobin 13.2 g/dL (12.0-15.0); Lymphocyte # 2.24 X10^3/ul (0.83-4.51); Lymphocyte % 39.7 % (19-41); Mean Corp Hgb Conc 32.5 g/dL (32-36); Mean Corpuscular Hgb 31.4 pg (27.0-32.0); Mean Corpuscular Volume 96.7 fL (81-99); Mean Platelet Vol. 10.4 fl (6.2-12.0); Monocyte# 0.69 X10^3/uL; Monocyte% 12.2 % (0-10); NRBC Flagged by Analyzer 0 % (0-5); Neutrophil # 2.24 X10^3/uL (2.7-7.7); Neutrophil % 39.8 % (47-70); Platelet Count 293 K/mm3 (150-450); RBC Distribution Width CV 12.6 % (11.6-14.6); White Blood Count 5.6 K/mm3 (4.4-11.0)
[2023-08-11 11:12] LABS: Partial Thromboplast Time 25.3 Seconds (24.1-36.2)
[2023-08-11 11:19] LABS: Prothrombin Time (Protime)PT. 12.9 SECONDS (11.7-14.9)
[2023-08-11 11:58] LABS: ALB/GLOB Ratio 1.3 RATIO (0.9-2.4); AST(SGOT) 40 U/L (15-37); Alanine Aminotransfer ALT/SGPT 34 U/L (13-56); Albumin, Serum 4.4 g/dL (3.2-5.0); Alkaline Phosphatase 68 U/L (45-117); Anion Gap 7 (5-15); BUN 12 mg/dL (7-18); BUN/Creat Ratio 18.7 RATIO (10-20); Calcium,Total 10.7 mg/dL (8.5-10.1); Chloride 100 mmol/L (98-107); Creatinine, Serum 0.64 mg/dL (0.55-1.02); EST Glomerular Filtration Rate 100 mL/min (>60); Est Glom Filt Rate - Afr Amer 121 mL/min (>60); Globulin 3.5 g/dL (2.2-4.2); Glucose 98 mg/dL (74-106); Potassium 3.7 mmol/L (3.5-5.1); Protein, Total 7.9 g/dL (6.4-8.2); Sodium Level 137 mmol/L (136-145)
== END | disposition home or self-care (01) ==
LOC: MFPLAB 09:13
PROVIDERS: PCP Family Medicine; Visit Provider Family Medicine
DX: Z01.818 Encounter for other preprocedural examination (principal)
CPT/HCPCS: 36415; 80053; 81001; 85025; 85610; 85730; 87077; 87081

== ENCOUNTER → 2023-10-15 | Outpatient (CLI) | payer OTHER, SELFPAY ==
[2023-10-15 17:29] LABS: Absolute Lymphocyte Count 1.64 X10^3/uL (0.83-4.51); Absolute Neutrophil Count 3.7 X10^3/uL (2.0-7.7); Basophil# 0.07 X10^3/uL; Basophil% 1.2 % (0-1); Eosinophil# 0.14 X10^3/uL; Eosinophils% 2.3 % (0-5); Hematocrit 34.6 % (37-47); Hemoglobin 11.2 g/dL (12.0-15.0); Lymphocyte # 1.64 X10^3/ul (0.83-4.51); Lymphocyte % 27.1 % (19-41); Mean Corp Hgb Conc 32.4 g/dL (32-36); Mean Corpuscular Hgb 30.4 pg (27.0-32.0); Mean Corpuscular Volume 93.8 fL (81-99); Mean Platelet Vol. 10.3 fl (6.2-12.0); Monocyte# 0.52 X10^3/uL; Monocyte% 8.6 % (0-10); NRBC Flagged by Analyzer 0 % (0-5); Neutrophil # 3.66 X10^3/uL (2.7-7.7); Neutrophil % 60.5 % (47-70); Platelet Count 386 K/mm3 (150-450); RBC Distribution Width CV 13.8 % (11.6-14.6); RBC Distribution Width SD 47.3 fl (35.1-43.9); Red Blood Count 3.69 M/mm3 (4.2-5.4); White Blood Count 6.1 K/mm3 (4.4-11.0)
[2023-10-15 17:48] LABS: Erythrocyte Sedimentation Rate 8 mm/hr (0-30)
[2023-10-15 17:53] LABS: CRP < 2.90 mg/L (0.0-3.0)
== END | disposition home or self-care (01) ==
LOC: MTLAB 14:02
PROVIDERS: PCP Family Medicine
DX: Z98.1 Arthrodesis status (principal)
CPT/HCPCS: 36415; 85025; 85652; 86140

== ENCOUNTER → 2023-10-18 | Outpatient (CLI) | payer OTHER, SELFPAY ==
--- NOTE | 2023-10-18 11:22 | RAD_ITS ---
EXAM: XR LUMBOSACRAL SPINE, 2 OR 3 VIEWS CLINICAL INDICATION: Arthrodesis status, S/P lumbar fusion TECHNIQUE: Frontal and lateral views of the lumbar spine and sacrum. COMPARISON: 12/21/[address]. FINDINGS: VERTEBRAE: Multilevel facet arthrosis and mild multilevel endplate osteophytosis. Status post L4-L5 discectomy with disc cage placed and L4-L5 posterior instrumented fusion with bilateral pedicle screws and longitudinal connecting rods. No evidence of hardware fracture. Anterolisthesis of L4 upon L5 measuring approximately 8 mm correlating with the prior examinations. No acute fracture. SACRUM/COCCYX: Arthrosis of the bilateral SI joints. DISC SPACES: No definite bony fusion across the L4-L5 disc space. Mild intervertebral disc height loss at L3-L4. SOFT TISSUES: Tubal ligation clips bilaterally. GASTROINTESTINAL TRACT: Normal as visualized. Included bowel gas pattern is non-obstructive. RAD/Lumbar Spine 2 or 3 Views IMPRESSION: 1. Status post L4-L5 discectomy with disc cage placed and L4-L5 posterior instrumented fusion with bilateral pedicle screws and longitudinal connecting rods. No evidence of hardware fracture. 2. Anterolisthesis of L4 upon L5 measuring approximately 8 mm correlating with the prior examinations. Electronically Signed: Aaron Hawkins DO at 17:17 EST ,
--- OUTSIDE RECORDS SUMMARY | 2023-10-18 11:46 | XMS RPT_ITS | CCD ---
Author Name Unknown Address [address] [place] [address] Organization [facility] Care Team Providers Care Card Lacer Jacquard Name Role Phone JENNIFER AMOR Unavailable Unavailable MT JENNIFER Rajiv Unavailable Unavailable NO REFERRING Unavailable Unavailable PAIN, MANAGEMENT Unavailable Unavailable CARLOS ENRIQUE ACOSTA Unavailable Unavailable MT JENNIFER Rajiv Unavailable Unavailable MT, JENNIFER Z Unavailable Unavailable CHARLEY, GORAN H Referring Unavailable ISAIAH GARCIA Primary Care Unavailable ARA SMITH Primary Care Unavailabl e CHARLEY, GORAN H Attending Unavailable ARA SMITH Referring Unavailabl e RANARA PEÑA Primary Care Unavailabl e SUE BAKER Attending Unavailable ARA SMITH Referring Unavailabl e VELVET SMITHER Katelyn Primary Care Unavailabl e CHARLEY, GORAN H Referring Unavailable RANVELVET PEÑAER B Primary Care Unavailabl e CHARLEY, GORAN H Referring Unavailable RANCASEY, VELVETER B Primary Care Unavailabl e CHARLEY, GORAN H Referring Unavailable RANVELVET PEÑAER B Referring Unavailabl e CHARLEY, GORAN H Attending Unavailable VELVET SMITHER B Primary Care Unavailabl e RANCASEY, VELVETER B Referring Unavailabl e CHARLEY, GORAN H Attending Unavailable RANCASEY, CHRISTOPHER B Primary Care Unavailabl e CHARLEY, GORAN H Attending Unavailable RANCASEY, CHRISTOPHER B Primary Care Unavailabl e CHARLEY, GORAN H Admitting Unavailable CHARLEY, GORAN H Attending Unavailable RANCASEY, CHRISTEMETERIOER B Primary Care Unavailabl e CHARLEY, GORAN H Referring Unavailable CHARLEY, GORAN H Attending Unavailable RANCASEY CHRISTPOOJA Zepeda Primary Care Unavailabl e Allergies Allergy Classification Reported Allergen(s) Allergy Type Date of Onset Reaction(s) Facility (1 source) acetaminophen / oxyCODONE; Translations: [PERCOCET] Drug Allergy [facility] Repository (2 sources) codeine; Translations: [CODEINE] Drug Allergy [facility] Repository (2 sources) EPINEPHrine; Translations: [EPINEPHRINE] Drug Allergy [facility] Repository (2 sources) Penicillins; Translations: [PENICILLINS] Propensity to adverse reactions (disorder) [facility] Repository Problems Active Problems Problem Classification Problem Date Documented Date Episodic/Chronic Essential hypertension (1 source) Essential (primary) hypertension; Translations: [ESSENTIAL PRIMARY HYPERT] Onset: 10-12-2016 Chronic Other circulatory disease (1 source) Arteritis, unspecified; Translations: [Arteritis, unspecified (HCC)] Onset: 12-24-2008 Chronic Other connective tissue disease (2 sources) Arthrodesis status; Translations: [S/P spinal fusion] Onset: 08-17-2023 Episodic Other nervous system disorders (2 sources) Other acute postprocedural pain; Translations: [OTHER ACUTE POSTPROCEDUR] Onset: 10-12-2016 Episodic Spondylosis; intervertebral disc disorders; other back problems (3 sources) Other cervical disc degeneration, unspecified cervical region; Translations: [Spondylosis without myelopathy or radiculopathy, lumbar region] Onset: 12-24-2008 Chronic Spondylosis; intervertebral disc disorders; other back problems (5 sources) Radiculopathy, lumbar region; Translations: [Spinal stenosis, cervical region] Onset: 10-12-2016 Episodic Unclassified (1 source) Established Patient Onset: 06-23-2023 Unclassified (1 source) Low back pain, unspecified back pain laterality, unspecified chronicity, unspecified whether sciatica present; Translations: [Low back pain, unspecified back pain laterality, unspecified chronicity, unspecified whether sciatica present] Onset: 12-07-2022 Past or Other Problems Problem Classification Problem Date Documented Da te Episodic/Chronic Allergic reactions (1 source) Allergy status to penicillin; Translations: [ALLERGY STATUS TO PENICI] Onset: 10-12-2016 Episodic Other acquired deformities (3 sources) Spondylolisthesis, lumbar region; Translations: [SPONDYLOLISTHESIS LUMBAR] Onset: 10-12-2016 Episodic Other circulatory disease (1 source) Hypotension, unspecified; Translations: [HYPOTENSION UNSPECIFIED] Onset: 10-12-2016 Episodic Other connective tissue disease (2 sources) Cramp and spasm; Translations: [Pain in left leg] Onset: 10-12-2016 Episodic Other connective tissue disease (1 source) Plantar fascial fibromatosis; Translations: [Plantar fascial fibromatosis] Onset: 12-24-2008 Episodic Other connective tissue disease (1 source) Pain in unspecified limb; Translations: [Pain in limb] Onset: 12-24-2008 Episodic Other gastrointestinal disorders (1 source) Constipation, unspecified; Translations: [CONSTIPATION UNSPECIFIED] Onset: 10-12-2016 Episodic Results Test Name Value Interpretation Reference Range Facil ity Encounters Encounter Date Encounter Type Care Provider Facility Start: 10-11-2023 End: 10-11-2023 ambulatory ARA SMITH Facility:[facility] Start: 09-17-2023 End: 09-17-2023 ambulatory ARA SMITH Facility:[facility] Start: 09-03-2023 End: 09-07-2023 Evaluation and management of inpatient GORAN WHITEHEAD Facility:[facility] Start: 08-20-2023 End: 08-21-2023 ambulatory ARA SMITH Facility:[facility] Start: 08-17-2023 Encounter for other preprocedural examination GORAN WHITEHEAD [facility] Start: 06-23-2023 End: 06-23-2023 ambulatory ARA SMITH Facility:[facility] Start: 05-26-2023 End: 05-26-2023 ambulatory ARA SMITH Facility:[facility] Start: 03-24-2023 End: 03-24-2023 ambulatory GORAN WHITEHEAD Facility:[facility] Start: 12-07-2022 End: 12-07-2022 ambulatory GORAN WHITEHEAD Facility:[facility] Start: 10-12-2016 End: 10-15-2016 Evaluation and management of inpatient JENNIFER AMOR Facility:[facility] Procedures Date Procedure Procedure Detail Performing Clinician Start: 08-20-2023 Antibody screen GORAN W NGHIA Payers Date Payer Category Payer Private Health Insurance [id number] 2021 Unknown [id number] Clinical Notes 12-07-2022 to 10-11-2023 Note Date & Type Note Facility 10-11-2023 Note HNO ID: [id number] Author: GORAN WHITEHEAD MD Service: ? Author Type: Physician Type: Progress Notes Filed: 10/11/2023 12:41 Note Text: NEUROSURGERY POST-OP NOTE Goran Whitehead MD Chair, Clinical Neurosciences Director, Spinal Neurosurgery [facility] Date of visit: October 11, 2023 Patient Name: Ms.Lisa Chrissy Burks Date of : 1965 Current Age: [age] year old Sex: female MRN/E# [id number] Last Office Visit: 10/11/2023 SURGERY: L3-5 laminectomy and lateral recess decompression, removal of hardware L4-5, inspection of fusion mass L4-5, reinstrumentation L4-5 with pedicle screw segmental fixation, posterior lateral fusion 09/03/2023 Pre-Surgical Symptoms: low back pain to posterior left leg radiates to left foot Past Medical/Surgical History: Conchis Burks is a 58 year old, female who is referred by Dr. Mercado for neurosurgical evaluation. The patient has a history of cervical and lumbar fusions. Smoking: no Alcohol Use: rare HPI: The patient underwent a L4-5 minimally invasive lumbar fusion in 2017. Approximately 1 year postoperatively she began complaining of left-sided radicular symptoms. More recently she described progression of radicular symptoms treated with an epidural steroid injection however weakness in the left foot. Imaging finding was somewhat inconclusive with respect to potential pseudoarthrosis. There was evidence of lateral recess stenosis bilaterally at L4-5 as well as a modest amount of stenosis at L3-4. She underwent surgery outlined above. She presented to the office 09/17/2023 with Sue Baker APRN, CNP for routine 2-week postoperative visit and reported left leg pain was improved compared to preoperatively. Weakness in left leg had improved as well. She did have incisional and bilateral low back pain that was tolerable with muscle relaxer and infrequent use of narcotic. She denied postoperative fever, incisional drainage, or constipation. She was taking a stool center for constipation prevention. She reported compliance with activity restrictions. Overall, she was pleased with her progress thus far. She reported that radiographic imaging must be completed at [facility]. She was instructed to obtain radiographic imaging no sooner than 1 week prior to appointment and to bring radiographic imaging on CD. She contacted the office today and reported she presented to a local urgent care on Wednesday with a fever that started Wednesday. She did report tenderness at her incision site and was prescribed Keflex 500mg 2x a day for 10 days for concern for infected incision. She stated she had a fever into Wednesday morning but had not had a fever since then. Denied any worsening back or leg symptoms. She reported a small amount of clear drainage from incision on Wednesday. She did state it appeared red and swollen. She was instructed to come into the office for further evaluation, prompting her visit today. Patient is having their 5 week post operative visit. She states she is doing well other than pain at incision site. She has been taking Keflex since Wednesday. Denies any fevers since Wednesday. Denies any drainage since Wednesday. Incision: Dry and intact, redness present to lower part of incision with small localized region of swelling present Current Outpatient Medications Medication Sig Dispense Refill oxyCODONE IR (ROXICODONE) 5 mg immediate release tablet Take 1 tablet by mouth every 8 hours as needed for up to 7 days. 21 tablet 0 cyclobenzaprine (FLEXERIL) 10 mg tablet Take 1 tablet by mouth three times a day as needed. 90 tablet 1 MULTIVITAMIN ORAL Take 1 capsule by mouth once daily. CALCIUM ORAL Take 1 capsule by mouth once daily. No current facility-administered medications for this visit. Objective Review of Systems Constitutional: Negative for chills, fatigue and fever. HENT: Negative for congestion, ear discharge and trouble swallowing. Eyes: Negative for discharge, itching and visual disturbance. Respiratory: Negative for cough, shortness of breath and wheezing. Cardiovascular: Negative for chest pain, palpitations and leg swelling. Gastrointestinal: Negative for constipation, diarrhea, nausea and vomiting. Endocrine: Negative for cold intolerance and heat intolerance. Genitourinary: Negative for difficulty urinating, frequency and urgency. Musculoskeletal: Positive for back pain. Negative for gait problem and neck pain. Skin: Positive for wound. Negative for rash. Allergic/Immunologic: Negative for environmental allergies and food allergies. Neurological: Negative for dizziness, weakness and numbness. Hematological: Does not bruise/bleed easily. Psychiatric/Behavioral: Negative for agitation. The patient is not nervous/anxious. On examination today in clinic she is neurologically intact. WOUND ASSESSMENT: Examining her wound it is essentially healed. There is a small portion towards the caud (more content not included)... [facility] 09-17-2023 Note HNO ID: [id number] Author: SUE BAKER APRN.CNP Service: ? Author Type: Nurse Practitioner Type: Progress Notes Filed: 09/17/2023 10:44 Note Text: Postoperative Note ELSIE Cruz Date of visit: September 17, 2023 Patient Name: Ms.Lisa Chrissy Burks Date of : 1965 Current Age: [age] year old Sex: female MRN/E# [id number] Last Office Visit: 09/09/2023 Postop Lumbar: SURGERY: Surgery Date: 09/03/2023 Surgery Type: L3-5 laminectomy and lateral recess decompression, removal of hardware L4-5, inspection of fusion mass L4-5, reinstrumentation L4-5 with pedicle screw segmental fixation, posterior lateral fusion Surgeon: Dr. Whitehead Pre-Surgical Symptoms: low back pain to posterior left leg radiates to left foot CC: Back surgery HPI: Brace type: None. Postop pain control?: Controlled Postop pain control medications?: Flexeril and OxyIR ROS: No fevers, chills night sweats, excessive drainage from incision, new neurologic issues. No chest pain, shortness of breath, leg swelling, changes in bowel/bladder. Progress: Patient presents to the office today for routine 2-week postoperative visit and reports left leg pain is improved compared to preoperatively. Weakness in left leg has improved as well. She does have incisional and bilateral low back pain that is tolerable with muscle relaxer and infrequent use of narcotic. She denies postoperative fever, incisional drainage, or constipation. She is currently taking a stool center for constipation prevention. She reports compliance with activity restrictions. Overall, she is pleased with her progress thus far. PHYSICAL EXAM: General - Alert,cooperative, appropriate Head: Atraumatic, normocephalic Neck: Supple Resp -Regular and unlabored Gait and Station: Normal gait. Upper extremities: Sensation: Intact to light touch Upper Extremity Strength Exam Right Left Deltoid 5/5 5/5 Biceps 5/5 5/5 Triceps 5/5 5/5 Wrist Extension 5/5 5/5 Interossei 5/5 5/5 Lower extremities: Sensation: Intact to light touch Lower Extremity Strength Exam Right Left Psoas 5/5 5/5 Quadriceps 5/5 5/5 DF 5/5 5/5 EHL 5/5 5/5 PF 5/5 5/5 Incision: Dry and intact, without redness ASSESSMENT/PLAN: 1.) Activity: Avoid bending, lifting > 10 lbs 2.) Scripts: Oxir and Flexeril Proper use and precautions discussed for prescribed medications. Okay for refill on pain medication or muscle relaxant that the patient is taking for postoperative pain/spasm which is due at this time. OARRS reviewed. All prescriptions have been APPROPRIATELY filled. No suspicious activity was identified. Prescription approved, signed and sent to patients pharmacy on file. 3.) Follow up: [address] Whitehead, xrays prior. Patient reports radiographic imaging must be completed at [facility]. Order provided to patient. Instructed patient to obtain radiographic imaging no sooner than 1 week prior to appointment and discussed need to bring radiographic imaging on CD for Dr. Whitehead to review imaging, not the impression. Patient verbalized understanding. 4.) Comments: -Patient is overall doing well postoperatively. Pain is improved compared to preoperatively. No new neuro deficits. -Incision appears to be healing nicely, no signs of infection noted. -Activity restrictions reinforced including no lifting/pushing/pulling greater than 10 pounds. Avoid bending/twisting at waist. Do not submerge incision underneath water. -Patient asked to contact our office if any new or worsening symptoms arise. All questions answered to the best of my ability. Sue Baker APRN-FITNESS/WELLNESS DIRECTOR [facility] This note was partially generated using [employer] voice recognition system, and there may be some incorrect words, spellings, and punctuation that were not noted in checking the note before saving. [facility] 09-06-2023 Note HNO ID: [id number] Author: Angelica Smith PA-C Service: Neurosurgery Author Type: Physician Cyber Security Instructor Type: Progress Notes Filed: 09/06/2023 10:25 AM Note Text: Neurosurgery Progress Note SERVICE DATE: 09/06/2023 SUBJECTIVE: Awake and alert in bed. States feels 'crappy' today. C/o LBP. No radicular symptoms. Has been up to BR and has been working with therapy. States meds help when administered.tolerating diet and no issues voiding. OBJECTIVE: Vitals: Temp (24hrs), Av.2 ?C (99 ?F), Min:36.9 ?C (98.4 ?F), Max:37.6 ?C (99.7 ?F) BP 124/60 Pulse 87 Temp 36.9 ?C (98.4 ?F) (Oral) Resp 18 Ht 160 cm (5' 2.99 ) Wt 46.5 kg (102 lb 8.2 oz) LMP (LMP Unknown) SpO2 97% BMI 18.16 kg/m? O2 Therapy: Room Air IANDO: Date 09/05/23 07 - 09/06/23 0659 09/06/23 07 - 09/07/23 0659 Shift 3334-5487 9667-6939 7961-9591 24 Hour Total 3594-8503 9923-1355 6288-9817 24 Hour Total INTAKE PO 790 790 PO 790 790 IV 2350 2350 Volume (mL) (NaCl 0.9% iv infusion) 2350 2350 Shift Total 790 2350 3140 OUTPUT Urine 3198 485 2973 Void (ml) 6745 849 8483 Urine Not Saved. 1 x 1 x Tubes 40 40 Drain/Tube Output ([REMOVED] Drain/Tube 09/03/23 1147 [facility] Back 09/05/23 2106) 40 40 Shift Total 3455 058 7547 Weight (kg) 46.5 46.5 46.5 46.5 46.5 46.5 46.5 46.5 MEDICATIONS Current Facility-Administered Medications Medication Dose Route Frequency heparin 5,000 Units injection 5,000 Units SUBCUTANEOUS q 12 H cyclobenzaprine 10 mg tab(s) (FLEXERIL) 10 mg ORAL TID PRN senna-docusate 8.6-50 mg 1 tablet (SENNA-S) 1 tablet ORAL BID oxyCODONE IR 5-10 mg tab(s) (ROXICODONE) 5-10 mg ORAL q 4 H PRN ondansetron 4 mg tab(s) (ZOFRAN) 4 mg ORAL q 6 H PRN Or ondansetron (PF) 4 mg injection (ZOFRAN) 4 mg INTRAVENOUS q 6 H PRN magnesium hydroxide 400 mg/5 mL 30 mL (MOM) 30 mL ORAL/FEEDING TUBE DAILY PRN bisacodyl 10 mg suppository (DULCOLAX) 10 mg RECTAL DAILY PRN NaCl 0.9% iv flush bag 20 mL INTRAVENOUS PRN acetaminophen 650 mg tab(s) (TYLENOL) 650 mg ORAL q 6 H Labs: Recent Labs 09/04/23 0455 NA 136 K 3.7 CHLOR 102 CO2 28 BUN 11 CREAT 0.61 GLUC 120* ANION 6* CA 9.1 WBC 8.59 HB 9.5* HCT 27.6* PLT 198 Exam: GENERAL: Awake and alert; uncomfortable appearing; cooperative; pleasant NEURO: Orientedx3; speech clear and fluent; SOLIS; STRENGTH: without focal deficits HEENT: Normocephalic; atraumatic LUNGS: Unlabored breathing BACK: Incision/dressing C/D/I ASSESSMENT AND PLAN: 58 year old female hx lumbar spondylolisthesis, s/p L-5 revision of fusion POD#3 - neuro as above - stable - PO XR completed - drain removed yesterday - pain control - Oxy and Flexeril PRN have been adequate - PT/OT - potential d/c home today vs tomorrow depending on pain control Parts of this note may have been copied from one of my previous notes and remain pertinent. The documentation has been reviewed and edited as necessary to support the clinical decision making for today's visit. SIGNATURE: Angelica Smith PA-C PATIENT NAME: Conchis Burks DATE: September 06, 2023 TIME: 10:20 AM Pager: [phone] [facility] 09-05-2023 Note HNO ID: [id number] Author: Maria Eugenia Velasquez APRN.FITNESS/WELLNESS DIRECTOR Service: Neurosurgery Author Type: Nurse Practitioner Type: Procedures Filed: 09/05/2023 6:34 PM Note Text: JAUN Drain Removal The suture was cut from the drain and the drain was carefully removed and confirmed intact. Sterile gauze or bandage was applied to the drainage site. Using betadine the skin around the drain was cleansed. Steri strips were used to close the drain. After closure, the drain site was cleansed and checked to ensure there was no leaking from the drain sites. The patient tolerated the procedure well. Maria Eugenia Velasquez APRN FITNESS/WELLNESS DIRECTOR Neurosurgery Pager:[phone] [facility] 09-05-2023 Note HNO ID: [id number] Author: Maria Eugenia Velasquez APRN.ANGEL Service: Neurosurgery Author Type: Nurse Practitioner Type: Progress Notes Filed: 09/05/2023 11:54 AM Note Text: Neurosurgery Progress Note SERVICE DATE: 09/05/2023 SUBJECTIVE: NAEON. Patient reports adequate pain control. Endorses ambulating down cohen without difficulty. Denies any numbness, tingling or n/v. OBJECTIVE: Vitals: Temp (24hrs), Av.9 ?C (98.4 ?F), Min:36.7 ?C (98.1 ?F), Max:37.2 ?C (99 ?F) BP 105/56 Pulse 82 Temp 36.9 ?C (98.4 ?F) (Oral) Resp 18 Ht 160 cm (5' 2.99 ) Wt 46.5 kg (102 lb 8.2 oz) LMP (LMP Unknown) SpO2 100% BMI 18.16 kg/m? O2 Therapy: Room Air IANDO: Date 09/04/23 07 - 09/05/23 0659 09/05/23 07 - 09/06/23 0659 Shift 0777-3228 1449-5973 9621-4943 24 Hour Total 0013-6924 7108-9302 7922-2025 24 Hour Total INTAKE PO 550 550 PO 550 550 Shift Total 550 550 OUTPUT Urine 250 794 263 8968 1900 Void (ml) 250 546 899 9586 1900 Urine Not Saved. 1 x 1 x Tubes 25 25 40 40 Drain/Tube Output (Drain/Tube 09/03/23 1147 [facility] Back) 25 25 40 40 Shift Total 250 882 203 8363 1940 Weight (kg) 46.5 46.5 46.5 46.5 46.5 46.5 46.5 46.5 MEDICATIONS Current Facility-Administered Medications Medication Dose Route Frequency cyclobenzaprine 10 mg tab(s) (FLEXERIL) 10 mg ORAL TID senna-docusate 8.6-50 mg 1 tablet (SENNA-S) 1 tablet ORAL BID oxyCODONE IR 5-10 mg tab(s) (ROXICODONE) 5-10 mg ORAL q 4 H PRN NaCl 0.9% iv infusion 75 mL/hr INTRAVENOUS CONTINUOUS ondansetron 4 mg tab(s) (ZOFRAN) 4 mg ORAL q 6 H PRN Or ondansetron (PF) 4 mg injection (ZOFRAN) 4 mg INTRAVENOUS q 6 H PRN magnesium hydroxide 400 mg/5 mL 30 mL (MOM) 30 mL ORAL/FEEDING TUBE DAILY PRN bisacodyl 10 mg suppository (DULCOLAX) 10 mg RECTAL DAILY PRN NaCl 0.9% iv flush bag 20 mL INTRAVENOUS PRN acetaminophen 650 mg tab(s) (TYLENOL) 650 mg ORAL q 6 H morphine 4 mg injection 4 mg INTRAVENOUS q 4 H PRN Labs: Recent Labs 09/04/23 0455 NA 136 K 3.7 CHLOR 102 CO2 28 BUN 11 CREAT 0.61 GLUC 120* ANION 6* CA 9.1 WBC 8.59 HB 9.5* HCT 27.6* PLT 198 Exam: GENERAL: Awake and alert; NAD; cooperative; pleasant NEURO: Orientedx3; speech clear and fluent; SOLIS; no arm drift STRENGTH: 5/5 throughout HEENT: Normocephalic; atraumatic; perrl/eomi; no facial droop LUNGS: Unlabored breathing BACK: Incision C/D/I DRAIN: JAUN posteriorly with 25ml/24hrs, 40ml out today, serosanguinous CARDIAC: Rate and rhythm as above ABDOMEN: Soft, non-tender, non-distended EXTREMITIES: No deformities, No edema SKIN: Skin color normal; Temperature normal; no rashes or lesions ASSESSMENT AND PLAN: Ms. Aguilera is a 58 y/o female with PMH of cervical and lumbar fusions that presents for elective spine surgery for L3-L5 lami with redo fusion of L4-5. POD #2 L3-5 lami and redo fusion L4-L5. - Neuro as above- intact - Neuro checks Q4hrs - Pull JAUN today - pain more controlled today continue prn oxy, scheduled flexeril, and prn morphine for breakthrough pain - PT/OT eval and tx- OT signed off d/t refusal - LSO as needed for comfort - Dispo: pending with PT rec home Parts of this note may have been copied from one of my previous notes and remain pertinent. The documentation has been reviewed and edited as necessary to support the clinical decision making for today's visit. SIGNATURE: Maria Eugenia Velasquez APRN.CNP PATIENT NAME: Conchis Burks DATE: September 05, 2023 TIME: 11:50 AM Pager: [phone] [facility] 09-04-2023 Note HNO ID: [id number] Author: Maria Eugenia Velasquez APRN.CNP Service: Neurosurgery Author Type: Nurse Practitioner Type: Progress Notes Filed: 09/04/2023 2:06 PM Note Text: Neurosurgery Progress Note SERVICE DATE: 09/04/2023 SUBJECTIVE: NAEON. Tearful from pain. Endorses pre-op radicular pain is gone and the pain she is having is strictly from the surgical site. Denies any numbness or tingling. OBJECTIVE: Vitals: Temp (24hrs), Av.7 ?C (98 ?F), Min:36.5 ?C (97.7 ?F), Max:36.8 ?C (98.2 ?F) BP 111/60 Pulse 78 Temp 36.8 ?C (98.2 ?F) (Oral) Resp 16 Ht 160 cm (5' 2.99 ) Wt 46.5 kg (102 lb 8.2 oz) LMP (LMP Unknown) SpO2 100% BMI 18.16 kg/m? O2 Therapy: Room Air IANDO: Date 09/03/23 07 - 09/04/23 0659 09/04/23 0700 - 09/05/23 0659 Shift 6753-6181 6256-4079 8107-7643 24 Hour Total 1127-8037 9836-9183 8767-2498 24 Hour Total INTAKE IV 1800 1800 Volume (mL) (ceFAZolin iv piggyback 2 g in D5W (iso-osmotic) 100 mL (ANCEF)) 100 100 Volume (mL) (NaCl 0.9% iv infusion) 700 700 Volume (mL) (lactated ringers iv infusion) 1000 1000 Shift Total 1800 1800 OUTPUT Urine 200 167 019 4688 250 250 Void (ml) 300 500 800 250 250 OR Urine Output 200 200 Urine Not Saved. 1 x 1 x Tubes 30 10 40 Drain/Tube Output (Drain/Tube 09/03/23 1147 [facility] Back) 30 10 40 Blood 200 200 Estimated Blood loss 200 200 Shift Total 400 485 718 0976 250 250 Weight (kg) 46.5 46.5 46.5 46.5 46.5 46.5 46.5 MEDICATIONS Current Facility-Administered Medications Medication Dose Route Frequency NaCl 0.9% iv infusion 75 mL/hr INTRAVENOUS CONTINUOUS ondansetron 4 mg tab(s) (ZOFRAN) 4 mg ORAL q 6 H PRN Or ondansetron (PF) 4 mg injection (ZOFRAN) 4 mg INTRAVENOUS q 6 H PRN docusate sodium 100 mg cap(s) (COLACE) 100 mg ORAL BID magnesium hydroxide 400 mg/5 mL 30 mL (MOM) 30 mL ORAL/FEEDING TUBE DAILY PRN bisacodyl 10 mg suppository (DULCOLAX) 10 mg RECTAL DAILY PRN NaCl 0.9% iv flush bag 20 mL INTRAVENOUS PRN oxyCODONE IR 10 mg tab(s) (ROXICODONE) 10 mg ORAL q 4 H PRN oxyCODONE IR 5 mg tab(s) (ROXICODONE) 5 mg ORAL q 4 H PRN acetaminophen 650 mg tab(s) (TYLENOL) 650 mg ORAL q 6 H morphine 4 mg injection 4 mg INTRAVENOUS q 4 H PRN Labs: Recent Labs 09/04/23 0455 NA 136 K 3.7 CHLOR 102 CO2 28 BUN 11 CREAT 0.61 GLUC 120* ANION 6* CA 9.1 WBC 8.59 HB 9.5* HCT 27.6* PLT 198 Exam: GENERAL: Awake and alert; NAD; cooperative; pleasant NEURO: Orientedx3; speech clear and fluent; SOLIS; no arm drift STRENGTH: 5/5 throughout HEENT: Normocephalic; atraumatic; perrl/eomi; no facial droop LUNGS: Unlabored breathing NECK/BACK: Incision C/D/I- some old drainage on dressing DRAIN: JAUN drain 40out last 16hrs serosanguinous CARDIAC: Rate and rhythm as above ABDOMEN: Soft, non-tender, non-distended EXTREMITIES: No deformities, No edema SKIN: Skin color normal; Temperature normal; no rashes or lesions ASSESSMENT AND PLAN: Ms. Aguilera is a 58 y/o female with PMH of cervical and lumbar fusions that presents for elective spine surgery for L3-L5 lami with redo fusion of L4-5. POD #1 L3-5 lami and redo fusion L4-L5. - Neuro as above- intact - Neuro checks Q4hrs - JAUN drain empty Q4hrs for output- maintain bulb suction - Give one time IV dilaudid for pain, change flexeril to scheduled; PRN Oxy 5-10 Q4hrs for pain, maintain prn morphine for breakthrough - PT/OT eval and TX - [employer] for LSO as needed post op - Dispo: pending, care management following Parts of this note may have been copied from one of my previous notes and remain pertinent. The documentation has been reviewed and edited as necessary to support the clinical decision making for today's visit. SIGNATURE: Maria Eugenia Velasquez APRN.CNP PATIENT NAME: Conchis Burks DATE: September 04, 2023 TIME: 1:56 PM Pager: [phone] [facility] 09-03-2023 Note HNO ID: [id number] Author: Theresa Yost RN Service: ? Author Type: Registered Nurse Type: Nursing Progress Note Filed: 09/03/2023 1:04 PM Note Text: Other: Dr. Whitehead at bedside to speak with pt. [facility] 09-03-2023 Note HNO ID: [id number] Author: Catrina Woods APRN.FURNACE UTILITY OPERATOR Service: Nursing Author Type: Nurse Automotive Welder Type: Anesthesia Procedure Notes Filed: 09/03/2023 8:32 AM Note Text: ANESTHESIOLOGY PROCEDURE NOTE Airway General Information Procedure Start Time/Medication Administration: 09/03/2023 8:07 AM Patient location during procedure: OR Timeout Performed Pre-procedure: timeout performed Consent Obtained: Yes Patient identity confirmed: arm band and patient Staffing FURNACE UTILITY OPERATOR: Catrina Woods APRN.FURNACE UTILITY OPERATOR Performed by: FURNACE UTILITY OPERATOR Indications and Patient Condition Indications for airway management: anesthesia Preoxygenated: yes anesthesia circuit Patient position: sniffing Method: asleep Difficult Mask: No Final Airway Details Final airway type: endotracheal airway Final Endotracheal Airway: ETT Cuffed: yes Successful intubation technique: video laryngoscopy Devices used: [employer] Endotracheal tube insertion site: oral Blade: Elizabeth Blade size: #3 ETT size (mm): 7.0 Measured from: lips Measurement (cm): 22 Placement verified by: capnometry Cormack-Lehane Classification: grade I - full view of glottis Number of attempts at approach: 1 Failed airway: no Unrecognized esophageal intubation: no Airway not difficult SIGNATURE: Catrina Woods APRN.CRNA PATIENT NAME: Conchis Burks DATE: September 03, 2023 TIME: 8:31 AM CSN: [id number] [facility] 08-20-2023 Note HNO ID: [id number] Author: Carrie Betancourt RT(R) Service: Radiology Author Type: Technologist Type: Progress Notes Filed: 08/20/2023 9:30 AM Note Text: Radiology Service Progress Note PATIENT NAME: Conchis Burks DATE OF SERVICE: August 20, 2023 TIME: 9:30 AM PATIENT IDENTITY VERIFICATION COMPLETED USING TWO (2) IDENTIFIERS: Name and Date of confirmed by patient verbally. FALL SCREENING: Has the patient had 2 falls in the last year or 1 fall with injury or currently using an Ambulatory Assistive Device (Walker, Cane, Wheelchair, Crutches, etc.)? No PATIENT GENDER DATA: Female. status: : No status: NO. PATIENT RELEVANT IMPLANT DATA REVIEWED: Not Applicable RADIOLOGY DEPARTMENT: General X-ray: Exam(s) Completed: Chest X-Ray PERIPHERAL IV DATA: Not applicable SIGNED BY: RT Kristian(R) August 20, 2023 9:30 AM [facility] 06-23-2023 Note HNO ID: [id number] Author: Goran Whitehead I, MD Service: ? Author Type: Physician Type: Progress Notes Filed: 06/23/2023 10:14 AM Note Text: NEUROSURGERY FOLLOW UP OFFICE NOTE Chair, Clinical Neurosciences Director, Spinal Neurosurgery [facility] Date of visit: June 23, 2023 Patient Name: Ms.Lisa Burks Date of : 1965 Current Age: [age] year old Sex: female MRN/E# [id number] Last Office Visit: 06/01/2023 Chief Complaint: Patient presents with: Established Patient Past Medical/Surgical History: Conchis Burks is a 57 year old, female who is referred by Dr. Mercado for neurosurgical evaluation. The patient has a history of cervical and lumbar fusions. Smoking: no Alcohol Use: rare HISTORY OF PRESENT ILLNESS : The patient presented to the office 12/07/2022 as a new patient with MRI and x-ray imaging of lumbar spine. She reported worsening low back pain into the left lower extremity that began a year after surgery. Pain traveled posteriorly down the left leg into foot. She noted weakness to the left leg and foot. She follows with Dr. Schwartz pain management at [facility]. She had an epidural injection which helped with pain but did not help weakness in left leg. She reported leg pain was more bothersome than back pain. In the last couple of months however she had worsening of left-sided symptoms including left leg weakness. She did have some mild foot drop on exam at this visit. Reviewing her imaging, I was truthfully unclear as to the exact etiology of her worsening left-sided pain. From a stenosis perspective if anything her fused level appeared to be the most stenotic. There was some moderate stenosis of adjacent segment above. Below at L5-S1 where I expected to find pathology given her foot drop, I really did not see anything significant. I recommended obtaining a CT scan , flexion-extension films as well as a left-sided lower extremity EMG study. We would then regroup to talk about potential surgical intervention. She presented to the office 03/24/2023 for follow up and image review. She stated that her symptoms were unchanged since last visit. She denied any back pain and stated her pain was more located in the left gluteal region that traveled the posterior LLE. Her biggest concern was the left leg and foot weakness that started this past September. She denied any bowel/bladder issues. Denied any RLE symptoms. In summary this lady presented initially with some delayed left-sided radiculopathy and more recently with a left-sided partial foot drop several years out after an MIS TLIF. Imaging showed good fusion posteriorly but possibly a pseudoarthrosis anteriorly. He did have lateral recess stenosis at that level. It was hard for me to explain why several years after this procedure she developed this neurological issue. I was struggling where to go with her. I recommended we get a nuclear medicine study to look for definitive evidence of pseudoarthrosis. Could then consider either an isolated foraminotomies at this level versus revision fusion surgery although I was not sure there were much to gain with the latter approach. The question was how much the anterior potential pseudoarthrosis may be playing on this. We would revisit after the nuclear medicine study. She presented to the office 05/26/2023 for follow up and image review. She stated that her symptoms were unchanged. Had ongoing pain since one year following surgery with new weakness in the LLE that started in September prompting her visit in December. I was perplexed by her presentation, remote to a fusion in her lumbar spine with left leg weakness. Her exam and description were not matching any clear imaging. I did not think she had a pseudoarthrosis at her prior fusion site. She did have some mild to moderate stenosis above her prior fusion site at the L3-4 level but I was not overly impressed by it. I struggled to see how it were causing her weakness. Recommended we obtain imaging higher up to ensure there were no additional lesions that could be causing this weakness although that would be unusual. I also placed a consult for neurology. We planned to see her back with new MRIs. At most I would consider a decompressive surgery at the L3 level across to L4-5 on the left side in hopes of improving some of her symptoms but at this point I could not guarantee result with that. She presents to the office today for follow up and image review. She states her symptoms have persisted although has noticed since last visit that she is starting to get muscle cramps in the right anterior thigh after walking. She continues with left gluteal region pain that travels posteriorly down the leg into her foot at times with weakness present. She presents for image review, evaluation and plan of care. Symptoms: low back pain to posterior left leg radiates to left foot PREVIOUS CONSERVATIV (more content not included)... [facility] 05-26-2023 Note HNO ID: [id number] Author: Goran Whitehead I, MD Service: ? Author Type: Physician Type: Progress Notes Filed: 05/26/2023 9:23 AM Note Text: NEUROSURGERY FOLLOW UP OFFICE NOTE Chair, Clinical Neurosciences Director, Spinal Neurosurgery [facility] Date of visit: May 26, 2023 Patient Name: Ms.Lisa Burks Date of : 1965 Current Age: [age] year old Sex: female MRN/E# [id number] Last Office Visit: 03/25/2023 Chief Complaint: Patient presents with: Established Patient Past Medical/Surgical History: Conchis Burks is a 57 year old, female who is referred by Dr. Mercado for neurosurgical evaluation. The patient has a history of cervical and lumbar fusions. Smoking: no Alcohol Use: rare HISTORY OF PRESENT ILLNESS : The patient presented to the office 12/07/2022 as a new patient with MRI and x-ray imaging of lumbar spine. She reported worsening low back pain into the left lower extremity that began a year after surgery. Pain traveled posteriorly down the left leg into foot. She noted weakness to the left leg and foot. She follows with Dr. Schwartz pain management at [facility]. She had an epidural injection which helped with pain but did not help weakness in left leg. She reported leg pain was more bothersome than back pain. In the last couple of months however she had worsening of left-sided symptoms including left leg weakness. She did have some mild foot drop on exam at this visit. Reviewing her imaging, I was truthfully unclear as to the exact etiology of her worsening left-sided pain. From a stenosis perspective if anything her fused level appeared to be the most stenotic. There was some moderate stenosis of adjacent segment above. Below at L5-S1 where I expected to find pathology given her foot drop, I really did not see anything significant. I recommended obtaining a CT scan , flexion-extension films as well as a left-sided lower extremity EMG study. We would then regroup to talk about potential surgical intervention. She presented to the office 03/24/2023 for follow up and image review. She stated that her symptoms were unchanged since last visit. She denied any back pain and stated her pain was more located in the left gluteal region that traveled the posterior LLE. Her biggest concern was the left leg and foot weakness that started this past September. She denied any bowel/bladder issues. Denied any RLE symptoms. In summary this lady presented initially with some delayed left-sided radiculopathy and more recently with a left-sided partial foot drop several years out after an MIS TLIF. Imaging showed good fusion posteriorly but possibly a pseudoarthrosis anteriorly. He did have lateral recess stenosis at that level. It was hard for me to explain why several years after this procedure she developed this neurological issue. I was struggling where to go with her. I recommended we get a nuclear medicine study to look for definitive evidence of pseudoarthrosis. Could then consider either an isolated foraminotomies at this level versus revision fusion surgery although I was not sure there were much to gain with the latter approach. The question was how much the anterior potential pseudoarthrosis may be playing on this. We would revisit after the nuclear medicine study. She presents to the office today for follow up and image review. She states that her symptoms are unchanged. Has had ongoing pain since one year following surgery with new weakness in the LLE that started in September prompting her visit in December. Symptoms: low back pain to posterior left leg radiates to left foot PREVIOUS CONSERVATIVE TREATMENTS: Pain Management - Dr. Efren Streeter Injections Tramadol Zanaflex PREVIOUS SURGERY: SURGERY #1: ACDF C4-[address] Amor SURGERY #2: ACDF C3-[address] Amor SURGERY #3: Right L4-5 MIS TLIF October [address] Amor OTHER DIAGNOSTIC TESTING: EMG/NC study of the LLE obtained with neurology 02/26/2023 PAIN EVALUATION 05/26/2023 0847 Pain Level: 6 Pain Location: Back-Lower low back to L buttock through L posterior leg Description: Burning Duration Amount of Time: 1 Duration Units: Years Frequency: Continuous PAST MEDICAL HISTORY Diagnosis Date NONE PAST SURGICAL HISTORY Procedure Laterality Date APPENDECTOMY 09/06/1986 DELIVERY ONLY 09/06/1991 , low cervical PAST SURGICAL HISTORY OF spinal surgery PAST SURGICAL HISTORY OF Right arm surgery [place] INJ Bilateral thumbs FAMILY HISTORY Problem Relation Age of Onset other (cva [Other]) Father Aneurysm Paternal Grandmother Hypertension Father ALLERGIES Allergen Reactions Codeine Vomiting Epinephrine Mental Status Change Penicillins Vomiting Current Outpatient Medications Medication Sig Dispense Refill VYVANSE 50 mg capsule Take 1 capsule by mouth once daily. aspirin 325 (more content not included)... [facility] 03-24-2023 Note HNO ID: [id number] Author: Goran Whitehead I, MD Service: ? Author Type: Physician Type: Progress Notes Filed: 03/24/2023 9:36 AM Note Text: NEUROSURGERY FOLLOW UP OFFICE NOTE Chair, Clinical Neurosciences Director, Spinal Neurosurgery [facility] Date of visit: March 24, 2023 Patient Name: Ms.Lisa Burks Date of : 1965 Current Age: [age] year old Sex: female MRN/E# [id number] Last Office Visit: 12/07/2022 Chief Complaint: Patient presents with: Established Patient Past Medical/Surgical History: Conchis Burks is a 57 year old, female who is referred by Dr. Mercado for neurosurgical evaluation. The patient has a history of cervical and lumbar fusions. Smoking: no Alcohol Use: rare HISTORY OF PRESENT ILLNESS : The patient presented to the office 12/07/2022 as a new patient with MRI and x-ray imaging of lumbar spine. She reported worsening low back pain into the left lower extremity that began a year after surgery. Pain traveled posteriorly down the left leg into foot. She noted weakness to the left leg and foot. She follows with Dr. Schwartz pain management at [facility]. She had an epidural injection which helped with pain but did not help weakness in left leg. She reported leg pain was more bothersome than back pain. In the last couple of months however she had worsening of left-sided symptoms including left leg weakness. She did have some mild foot drop on exam at this visit. Reviewing her imaging, I was truthfully unclear as to the exact etiology of her worsening left-sided pain. From a stenosis perspective if anything her fused level appeared to be the most stenotic. There was some moderate stenosis of adjacent segment above. Below at L5-S1 where I expected to find pathology given her foot drop, I really did not see anything significant. I recommended obtaining a CT scan , flexion-extension films as well as a left-sided lower extremity EMG study. We would then regroup to talk about potential surgical intervention. She presents to the office today for follow up and image review. She states that her symptoms are unchanged since last visit. She denies any back pain and states her pain is more located in the left gluteal region that travels the posterior LLE. Her biggest concern is the left leg and foot weakness that started this past September. She denies any bowel/bladder issues. Denies any RLE symptoms. She presents for image review, evaluation and plan of care. Symptoms: low back pain to posterior left leg radiates to left foot PREVIOUS CONSERVATIVE TREATMENTS: Pain Management - Dr. Efren Streeter Injections Tramadol Zanaflex PREVIOUS SURGERY: SURGERY #1: ACDF C4-[address] Amor SURGERY #2: ACDF C3-[address] Amor SURGERY #3: Right L4-5 MIS TLIF October [address] Amor OTHER DIAGNOSTIC TESTING: EMG/NC study of the LLE obtained with neurology 02/26/2023 PAIN EVALUATION 03/24/2023 0856 Pain Level: 3 Pain Location: Back-Lower LLE Description: Tingling;Numbness;Aching;Dull Duration Amount of Time: 1 Duration Units: Years Frequency: Intermittent Intervention/Comfort measure: Medication;Reposition;Relaxation;Positi oning PAST MEDICAL HISTORY Diagnosis Date NONE PAST SURGICAL HISTORY Procedure Laterality Date APPENDECTOMY 09/06/1986 DELIVERY ONLY 09/06/1991 , low cervical PAST SURGICAL HISTORY OF spinal surgery PAST SURGICAL HISTORY OF Right arm surgery [place] INJ Bilateral thumbs FAMILY HISTORY Problem Relation Age of Onset other (cva [Other]) Father Aneurysm Paternal Grandmother Hypertension Father ALLERGIES Allergen Reactions Codeine Vomiting Epinephrine Mental Status Change Penicillins Vomiting Current Outpatient Medications Medication Sig Dispense Refill VYVANSE 50 mg capsule Take 1 capsule by mouth once daily. aspirin 325 mg tablet Take 650 mg by mouth once daily. SUMAtriptan (IMITREX) 50 mg tablet Take 50 mg by mouth as needed for migraine headache (see administration instructions). ondansetron (ZOFRAN) 4 mg tablet Take 4 mg by mouth every 8 hours as needed for nausea/vomiting (migraine). tiZANidine (ZANAFLEX) 4 mg tablet Take 1 tablet by mouth twice daily as needed. MULTIVITAMIN ORAL Take 1 capsule by mouth once daily. CALCIUM ORAL Take 1 capsule by mouth once daily. diaphragms, arc-spring(ORTHO DIAPHRAGM ALL-FLEX 80 80 MM KIT) dispense one with spermicide 1 0 tramadol hcl(ULTRAM 50 MG TAB) Take one(1) tablet every four(4) to six(6) hours as needed for pain. 0 0 aspirin 81 mg cap Take 1 capsule by mouth once daily. No current facility-administered medications for this visit. REVIEW OF SYSTEMS Review of Systems Constitutional: Negative for chills, fatigue and fever. HENT: Negative for congestion, ear discharge and trouble swallowing. Eyes: Negative for discharge, itching and visual disturbance. Resp (more content not included)... [facility] 12-07-2022 Note HNO ID: [id number] Author: Goran Whitehead I, MD Service: ? Author Type: Physician Type: Progress Notes Filed: 12/07/2022 3:05 PM Note Text: NEUROSURGERY CONSULT NOTE Goran Whitehead MD Chair, Clinical Neurosciences Director, Spinal Neurosurgery [facility] Date of visit: December 07, 2022 Patient Name: Ms.Lisa Burks Date of : 1965 Current Age: [age] year old Sex: female MRN/E# [id number] Last Office Visit: Visit date not found Chief Complaint: Patient presents with: New Patient Evaluation Past Medical/Surgical History: Conchis Burks is a 57 year old, female who is referred by Dr. Mercado for neurosurgical evaluation. The patient has a history of cervical and lumbar fusions. Smoking: no Alcohol Use: rare HISTORY OF PRESENT ILLNESS : The patient presents to the office today as a new patient with MRI and x-ray imaging of lumbar spine. Today she reports worsening low back pain into the left lower extremity. Pain travels posteriorly down the left leg into foot. She notes weakness to the left leg and foot. She follows with Dr. Schwartz pain management at [facility]. She had an epidural injection which helped with pain but did not help weakness in left leg. She reports leg pain is more bothersome than back pain. She is here for image review, evaluation and plan of care. She is here for image review, evaluation and plan of care. Symptoms: low back pain to posterior left leg radiates to left foot PREVIOUS CONSERVATIVE TREATMENTS: Pain Management - Dr. Efren Streeter Injections Tramadol Zanaflex PREVIOUS SURGERY: SURGERY #1: ACDF C4-[address] Amor SURGERY #2: ACDF C3-[address] Amor SURGERY #3: Right L4-5 MIS TLIF October [address] Amor PAIN EVALUATION 12/07/2022 1415 Pain Level: 4 Pain Location: Leg-Left low back, left foot drop Description: Other: See comment;Dull;Radiating weakness Duration Amount of Time: 3 Duration Units: Years Frequency: Continuous Intervention/Comfort measure: Medication;Positioning;Reposition Comments: pt reports increasing left sided leg weakness since sep 2022 PAST MEDICAL HISTORY Diagnosis Date NONE PAST SURGICAL HISTORY Procedure Laterality Date APPENDECTOMY 09/06/1986 DELIVERY ONLY 09/06/1991 , low cervical PAST SURGICAL HISTORY OF spinal surgery PAST SURGICAL HISTORY OF Right arm surgery [place] INJ Bilateral thumbs FAMILY HISTORY Problem Relation Age of Onset other (cva [Other]) Father Aneurysm Paternal Grandmother Hypertension Father ALLERGIES Allergen Reactions Codeine Vomiting Epinephrine Mental Status Change Penicillins Vomiting Current Outpatient Medications Medication Sig Dispense Refill tiZANidine (ZANAFLEX) 4 mg tablet Take 1 tablet by mouth twice daily as needed. aspirin 81 mg cap Take 1 capsule by mouth once daily. MULTIVITAMIN ORAL Take 1 capsule by mouth once daily. CALCIUM ORAL Take 1 capsule by mouth once daily. tramadol hcl(ULTRAM 50 MG TAB) Take one(1) tablet every four(4) to six(6) hours as needed for pain. 0 0 diaphragms, arc-spring(ORTHO DIAPHRAGM ALL-FLEX 80 80 MM KIT) dispense one with spermicide 1 0 No current facility-administered medications for this visit. REVIEW OF SYSTEMS Review of Systems Constitutional: Negative for chills and fever. Eyes: Negative for visual disturbance. Respiratory: Negative for cough and shortness of breath. Cardiovascular: Negative for chest pain and leg swelling. Gastrointestinal: Negative for nausea and vomiting. Genitourinary: Negative for difficulty urinating. Musculoskeletal: Positive for arthralgias, back pain, gait problem and neck pain. Skin: Negative for rash and wound. Neurological: Positive for weakness. Negative for dizziness. Hematological: Does not bruise/bleed easily. Psychiatric/Behavioral: Negative for agitation and confusion. The patient is not nervous/anxious. OBJECTIVE: BP 144/86 Pulse 92 Ht 5' 3 (1.60m) Wt 101 lb 6.6 oz (46.0kg) SpO2 98% BMI 17.97 kg/(m2). PHYSICAL EXAM: Mental State : Alert, memory function unremarkable. Attention span and concentration normal for patient's age. Speech normal, no receptive or expressive speech deficit. Recent and remote memory normal. Orientation : Oriented to person, place and time. Higher Cortical Function : Intact speech and language. Spontaneous speech and comprehension normal. Fund of knowledge intact for pt level of education. Sensory: Normal Sensation in upper and lower extremities and trunk to touch and noxious stimuli. Motor: Normal muscle tone and bulk. No tremor or uncontrollable movements. No spasticity or tremor. Cerebellar Function : Normal finger to nose. Normal rapid alternating movements. No ataxia. Negative Romberg. Gait and Station: Casual gait is normal including stance, stride, and arm swing. Normal toe walking. Normal heel (more content not included)... [facility] Summary Purpose Family History No Family History Records FoundNo Family History Records Found Advance Directives No Advanced Directives Records FoundNo Advanced Directives Records Found Additional Source Comments INFORMATION SOURCE (unrecogn ized section and content) DATE CREATED AUTHOR AUTHOR'S ADELFO ARROYO 10/16/2023 [facility] [facility] FOR RECORDS PERTAINING TO PATIENTS WHO ARE OR HAVE BEEN ENROLLED IN A CHEMICAL DEPENDENCY/SUBSTANCEABUSE PROGRAM, SOME INFORMATION MAY BE OMITTED. This clinical summary was aggregated from multiple sources. Caution should be exercised in using it in the provision of clinical care. This summary normalizes information from multiple sources, and as a consequence, information in this document may materially change the coding, format and clinical context of patient data. In addition, data may be omitted in some cases. CLINICAL DECISIONS SHOULD BE BASED ON THE PRIMARY CLINICAL RECORDS. [facility]. provides no warranty or guarantee of the accuracy or completeness of information in this document.
== END | disposition home or self-care (01) ==
PROVIDERS: PCP Family Medicine
DX: Z98.1 Arthrodesis status (principal)
CPT/HCPCS: 72100

== ENCOUNTER → 2023-11-29 | Outpatient (CLI) | payer OTHER, SELFPAY ==
--- NOTE | 2023-11-29 11:51 | RAD_ITS ---
STUDY: X-RAY - LUMBAR SPINE REASON FOR EXAM: Female, 58 years old. Arthrodesis status TECHNIQUE: 4 view(s) of the lumbar spine were obtained. COMPARISON: October 18, 2023 FINDINGS: Normal lumbar lordosis. There is no substantial scoliosis. Stable posterior fusion rods and pedicle screws and interbody graft at L4-L5. Anterolisthesis of L4 and L5 of 6 mm is unchanged from the previous study. No compression deformities or fractures are seen. Mild posterior disc space narrowing is present at L3-L4. The remaining disc spaces are preserved. The soft tissue structures are unremarkable. RAD/L/S Spine Min 4 Views IMPRESSION: Degenerative changes of the spine, as detailed above. Electronically Signed: Korey Lewis MD at 16:10 EDT ,
== END | disposition home or self-care (01) ==
PROVIDERS: PCP Family Medicine
DX: Z98.1 Arthrodesis status (principal)
CPT/HCPCS: 72110

== ENCOUNTER 2024-02-23 09:30 | Outpatient (RCR) | payer OTHER, SELFPAY ==
--- NOTE | 2023-12-27 15:59 | HP.PTEVAL ---
Patient's Visit Information Visit Information Visit Information: NANCY BURKS is a 58 year old F referred to Physical Therapy by GORAN WHITEHEAD with a diagnosis of s/p spinal fusion. Date of Evaluation: 12/27/23 Physical Therapist: Genaro Gayle, DPT, OCS, CSCS Visit Plan Frequency: 3x /Week Duration: 4-6 Weeks Plan: 3x/week for 4-6 weeks...given today trunk rotation, DKC, ANRS L LE 2x/day) 1. manual scar massage to LB incisions each session please 2. Wrok on gentle LB ROM and mat based core strength to I HEP as tolerated 3. L Leg stregth mat and gym and work to I(focus HS adn hip extension) Subjective Subjective: Lumbar surgery 09/02 taking out a previous fusion and fusing somemore. New hardware. Original fusion was about 5 yrs which corrected foot drop adn was good for a year. That was done as she was unable to sit comfortably and September of 2022 got weakness in L LE. had a little heel drag. Has had 6 spine surgeries. This surgery seems to have helped, not allowed to lift anything but has been tot he gym. Back of L leg still weak. has a new pain in top of L hip down to knee. had 2 medrol pack in November whcih helped leg. Back L side pain is always present. Incision got infected in October. 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 No worse on those day. is worse every evening of the week. Sleep is touigh to get to sleep but does OK after that, feels good in am. Hobbies: cycling road and can do it but has not been allowed. No lifting bending or twisting. Saw doctor end of November and can lift now and go to therapy. has tried running and it hurts. Basic ADLs are I. Pain L hip and LBP: Pain Intensity (Out of 10): 1 Pain Intensity Range: 1 and 5 Comment: later in day, wakes up great. Objective Objective: Posture is up tall and flattened lordosis. tender to palpation in L L45 area adn along posterior pelvic ridge. multiple posterior incisons have healed well but obvious scar tiddue underneath sticking to various layers. No signs of excessive redness, heat or swelling. L knee flexion strength 27# L , 40+# R(cramping in R HS) other strength LE hip flexion L is paiful and 4- vs 4 on R, hip extension is painful L and 3+ vs 4- R. knee extension 4 B. ankle tests are 4/5 without myotomal or specific muscle problems. sensation LE WNL to gross light touch. reflexes 0/3 patella dn achilles B. - slump and - SLR tests. Weakness in core at 3+ ab and back testing with some discomfort L LB in extension testing. Walks well but avoids some hip extension B at end stance. Lumbar ROM L SB painful, extension painful L LB, flexiona dn R SB are comfortable. Balance/Special Test Scores Oswestry Low Back Score: 10 Goals Goal 1:: Lbar ROM all planes without sharp pain L LB and leg Goal Time Frame: 4-6 Weeks Goal 2:: I appropriate strength LE adn core and ROM for LB without pain Goal Time Frame: 4-6 Weeks Goal 3:: Hamstring strength on L without cramping and 40# to show improved LE strength Goal Time Frame: 4-6 Weeks Goal 4:: oswestry back score 3 or less Goal Time Frame: 4-6 Weeks Goal 5:: Plan to return to cycling Goal Time Frame: 4-6 Weeks Rehabilitation Potential Physical Therapy Diagnosis: weakness, tightness and scarring post surgery limiting comfortable function Rehabilitation Potential: Fair Anticipated Interventions Patient/Client Instruction: Educate patient on: Condition For the Purpose of:: To decrease pain, To increase ROM, To improve nutrient delivery to tissue, To improve muscle performance and motor function and To increase tolerance to activity/condition/position Therapeutic Exercise to Include: Strength training, Postural training, Flexibilty training, Gait and locomotor training, Passive ROM, Active ROM and Dynamic Lumbar Stabilization For the Purpose of:: To decrease pain, To increase ROM, To improve nutrient delivery to tissue, To improve muscle performance and motor function, To increase tolerance to activity/condition/position, To improve ability of physical actions for home/community/work/leisure and To improve gait and locomotor functions Manual Therapy Techniques to Include: Scar massage, Mobilization, Passive ROM and Soft tissue mobilization For the Purpose of:: To decrease pain, To increase ROM, To improve nutrient delivery to tissue, To improve muscle performance and motor function, To increase tolerance to activity/condition/position and To improve gait and locomotor functions Text: Thank you for the opportunity to evaluate your patient. For Medicare and Medicare HMO plans, please review the plan of care and approve it. It will need to be FAXED BACK to us at [phone] for Medicare purposes. For Medicare only, by signing this I certify the plan of care. Please let me know if there are questions or concerns regarding this plan of care. Physician Signature: Date:
--- NOTE | 2024-02-23 09:57 | HP.PTDCSUM ---
Discharge Summary D/C summary: It has been my pleasure to treat NANCY BURKS referred by GORAN WHITEHEAD, with the diagnosis of s/p spinal fusion for a total of 13 visit(s). Discharge Date: 02/23/24 Please see the following information for a summary of their discharge status. Subjective Subjective: Not any better. Did some running and tripped due to left leg going out when it was underneath her. Went out without warning during walk jog interval. L knee always hurts. Will see surgeon next week. Still has pain in L LB. doing exercises at first but not since her fall . Was not even a mile in when she leg gave out. Pt frustrated with some L LBP and leg giving out with jogging. Pain L hip and LBP: Pain Intensity (Out of 10): 2 Overall Improvement % Improvement: 10 Objective Objective/Function: 38# L HS vs 22#, improving strength despite not completing HEP. Walks normal and LE tests are symmetrical from L to R [id number] HS testing above. - TA[place]NA, - FADDIR, good L hip ROM. LB AROM ext min limited and L SB min limited with pain L5 S1 but not tender in soft tissue in this area. Goals Goal 1:: Lbar ROM all planes without sharp pain L LB and leg Goal Progress: Progressing Goal 2:: I appropriate strength LE adn core and ROM for LB without pain Goal Progress: Goal Met Goal 3:: Hamstring strength on L without cramping and 40# to show improved LE strength Goal Progress: Not Progressing Goal 4:: oswestry back score 3 or less Goal Progress: Goal Met Goal 5:: Plan to return to cycling Goal Progress: Goal Met Plan Plan: pt to doctor next week to review options due to frustration with leg giving out with jogging and continued pain L LB area. is to continue HEP to that point and will be happy to treat fruther if ordered by doctor D/C Information Discharge Comments: Pt to doctor for furtheer options, education on progress. d/c sentence: If there are questions or concerns regarding this patient's physical therapy, please feel free to call me at [phone]. Thank you for the referral of this patient. Sincerely, Genaro Gayle, DPT, OCS, CSCS Balance/Gait/Functional tests Balance/Special Test Scores Oswestry Low Back Score: 3 Improvement % Improvement: 10
== END 2024-02-23 19:00 | disposition home or self-care (01) ==
LOC: PT 09:30
PROVIDERS: PCP Family Medicine
DX: Z98.1 Arthrodesis status (principal)
CPT/HCPCS: 97110; 97161; 97530

== ENCOUNTER → 2024-02-28 | Outpatient (CLI) | payer OTHER, SELFPAY ==
--- NOTE | 2024-02-28 13:40 | RAD_ITS ---
STUDY: X-RAY - LUMBAR SPINE REASON FOR EXAM: Female, 58 years old. Follow-up after spinal fusion. TECHNIQUE: 4 view(s) of the lumbar spine, including lateral flexion and extension views, were obtained. COMPARISON: October 18, 2023 FINDINGS: Stable osteopenia. Slight increased lordosis, unchanged. No substantial scoliosis. 11 mm of anterolisthesis of L4 on L5, unchanged from prior study. Stable posterior L4-5 fusion with intervertebral disc prosthesis. Diffuse mild lower thoracic and lumbosacral facet sclerosis. Intervertebral disc space narrowing at L2-3, L3-4 and to the greatest degree L4-5, unchanged from prior study. Limited flexion and extension with no abnormal motion. Tubal ligation clips unchanged. RAD/L/S Spine Min 4 Views IMPRESSION: Stable osteopenia, lumbosacral spondylosis most marked at L4-5 and posterior fusion at L4-5. No acute abnormality or erosive changes. Electronically Signed: Vinny Padgett MD at 10:43 EDT ,
== END | disposition home or self-care (01) ==
LOC: MTRAD 13:38
PROVIDERS: PCP Family Medicine
DX: Z98.1 Arthrodesis status (principal)
CPT/HCPCS: 72110

== ENCOUNTER → 2024-05-10 | Outpatient (CLI) | payer OTHER, SELFPAY ==
--- NOTE | 2024-05-10 09:31 | RAD_ITS ---
STUDY: X-RAY - LEFT CALCANEUS REASON FOR EXAM: Female, 58 years old. Question bone spur. TECHNIQUE: 2 views of the left calcaneus were obtained. COMPARISON: Left foot radiographs dated 09/11/2013. FINDINGS: Normal visualized calcaneus. There is no enthesophyte or plantar calcaneal spur. There is no demonstrated fracture. RAD/Calcaneus min 2 Views IMPRESSION: No bone spur. Electronically Signed: Bin Polk MD at 9:15 EDT ,
== END | disposition home or self-care (01) ==
PROVIDERS: PCP Family Medicine; Referring Provider Family Medicine; Visit Provider Family Medicine
DX: M72.2 Plantar fascial fibromatosis (principal)
CPT/HCPCS: 73650

== ENCOUNTER → 2024-09-13 | Outpatient (CLI) | payer OTHER, SELFPAY ==
[2024-09-13 13:37] LABS: Amphetamine Urine VISTA NEGATIVE (<1000 ng/mL); Barbiturate Urine VISTA NEGATIVE (< 200 ng/mL); Benzodiazepine Urine VISTA NEGATIVE (< 200 ng/mL); Cocaine Urine VISTA NEGATIVE (< 300 ng/mL); Ecstacy Urine VISTA NEGATIVE (< 500 ng/mL); Methadone Urine VISTA NEGATIVE (< 300 ng/mL); PCP Urine VISTA NEGATIVE (< 25 ng/mL); THC Urine VISTA NEGATIVE (< 50 ng/mL); Vista UDS pH Range 7
== END | disposition home or self-care (01) ==
PROVIDERS: PCP Family Medicine; Referring Provider Anesthesiology Pain Medicine; Visit Provider Anesthesiology Pain Medicine
DX: F11.20 Opioid dependence, uncomplicated (principal)
CPT/HCPCS: 80307

== ENCOUNTER → 2024-11-15 | Outpatient (CLI) | payer OTHER, SELFPAY ==
--- NOTE | 2024-11-15 14:41 | RAD_ITS ---
EXAM: XR Left Wrist Complete, 3 or More Views CLINICAL INDICATION: PAIN, INJURY. SWELLING DISTAL RADIUS TECHNIQUE: Frontal, lateral and oblique views of the left wrist. COMPARISON: No relevant prior studies available. FINDINGS: BONES/JOINTS: Small bony fragment adjacent to the ulnar styloid process could be avulsion fracture indeterminate age. Correlation with point tenderness is recommended. Moderate degenerative change of the 1st carpometacarpal joint. No dislocation. SOFT TISSUES: Soft tissue swelling. No radiopaque foreign body. RAD/Wrist min 3 Views IMPRESSION: Small bony fragment adjacent to the ulnar styloid process could be avulsion fra cture indeterminate age. Correlation with point tenderness is recommended. Reading Location: [id number]
== END | disposition home or self-care (01) ==
LOC: MTRAD 14:41
PROVIDERS: PCP Family Medicine; Referring Provider Family Medicine; Visit Provider Family Medicine
DX: M25.532 Pain in left wrist (principal)
CPT/HCPCS: 73110

== ENCOUNTER → 2025-01-05 | Outpatient (CLI) | payer OTHER, SELFPAY ==
--- NOTE | 2025-01-05 10:23 | BI_ITS ---
EXAM: SCRN MAMM (CAD)W/ROBERTO BILAT DATE: 01/05/2025 CLINICAL HISTORY: F, Age 59 y/o , SCREENING BREAST CANCER RISK ASSESSMENT: Has not been calculated. TECHNIQUE: Bilateral screening digital breast tomosynthesis with 2D and 3D images. Computer aided detection. COMPARISON: Prior exam(s) dated 01/18/2023 and 02/07/2021. FINDINGS: TISSUE DENSITY: The breast tissue is extremely dense which lowers the sensitivity of mammography. Bilateral Breast Mammographic Findings: No significant masses, calcifications or other abnormalities are identified. Benign vascular calcifications are seen in both breasts. BI/SCRN MAMM (CAD)W/ROBERTO BILAT IMPRESSION: OVERALL FINAL ASSESSMENT: BIRADS 2 BENIGN FINDING RECOMMENDATION: Routine annual follow-up in 1 Year A letter with findings and recommendations will be mailed to the patient. Reading Location: [id number]
== END | disposition home or self-care (01) ==
LOC: OPBI 10:21
PROVIDERS: PCP Family Medicine; Referring Provider Family Medicine; Visit Provider Family Medicine
DX: Z12.31 Encounter for screening mammogram for malignant neoplasm of breast (principal)
CPT/HCPCS: 77063; 77067

== ENCOUNTER → 2025-05-16 | Outpatient (CLI) | payer OTHER, SELFPAY ==
--- NOTE | 2025-05-16 10:20 | RAD_ITS ---
PROCEDURE: HAND MIN 3 VIEWS 05/16/2025 REASON FOR EXAM: BILATERAL 1ST MCP PAIN TECHNIQUE: Procedure Code: FELIPE Modality: DX Procedure: HAND MIN 3 VIEWS Laterality: Left COMPARISON: Available priors FINDINGS: Bones: No acute fracture. No destructive bone lesion. Joints: Advanced degenerative changes of the basal joint with hypertrophic changes. Mild degenerative changes of the 1st MTP joint. Normal radiocarpal joint. Soft tissues: Soft tissues are unremarkable. Other: None RAD/Hand Min 3 Views IMPRESSION: Degenerative changes of the basal joint and 1st MCP joint. No acute osseous abnormality. Reading Location: [id number]
--- NOTE | 2025-05-16 10:20 | RAD_ITS ---
PROCEDURE: HAND MIN 3 VIEWS 05/16/2025 REASON FOR EXAM: BILATERAL 1ST MCP PAIN TECHNIQUE: Procedure Code: FELIPE Modality: DX Procedure: HAND MIN 3 VIEWS Laterality: FINDINGS: Bones: No acute fracture. No destructive bone lesion. Status post open reduction internal fixation of distal radial fracture. Fracture deformity of the left ulnar styloid. Joints: Advanced degenerative changes of the basal joint with hypertrophic changes. Mild degenerative changes of the 1st MTP joint. Normal radiocarpal joint. Soft tissues: Soft tissues are unremarkable. Other: None RAD/Hand Min 3 Views IMPRESSION: Status post open reduction internal fixation of distal radial fracture and old fracture of the ulnar styloid. Degenerative changes of the right basal joint and right 1st MCP joint. Reading Location: [id number]
--- OUTSIDE RECORDS SUMMARY | 2025-05-16 11:59 | XMS RPT_ITS | CCD ---
Author Organization [facility] Care Team Providers Care Riveter Portable Machine Name Role Phone EM AMORAmanda Vance Unavailable Unavailable MT JENNIFER Vance Unavailable Unavailable NO REFERRING DR Unavailable Unavailable PAIN, MANAGEMENT Unavailable Unavailable CARLOS ENRIQUE ACOSTA Unavailable Unavailable MT, JENNIFER Rajiv Unavailable Unavailable MT, JENNIFER Rajiv Unavailable Unavailable Dr. Fredy Ac Primary Care Provider Dr. Fredy Ac Referring Provider Dr. Akhil Corona Attending Provider Padmini PRICE, ALBERT Larios Attending Provider Dr. Fredy Ac Primary Care Provider Dr. Fredy Ac Referring Provider Dr. Fredy Ac Primary Care Provider Dr. Fredy Ac Referring Provider Dr. Migue Rush Attending Provider Dr. Fredy Ac Primary Care Provider [phone] Dr. Fredy Ac Referring Provider Dr. Migue Rush Attending Provider [phone] JULIENNE WHITEHEAD Attending Unavailable JULIENNE WHITEHEAD Referring Unavailable ARA AC Primary Care UnavailSUE Rai Attending Unavailable ARA AC Referring Unavailabl ARA Matthew Primary Care Unavailabl JULIENNE Copeland Attending Unavailable ARA AC Referring Unavailabl e ARA AC Primary Care Unavailabl e SUE BAKER Referring Unavailable RANNEY, VELVETER B Primary Care Unavailabl e CHARLEY, JULIENNE Attending Unavailable RANNEY, CHRISTOPHER B Primary Care Unavailabl e CHARLEY, JULIENNE Admitting Unavailable CHARLEY, JULIENNE Attending Unavailable CHARLEY, JULIENNE Referring Unavailable RANNEY, CHRISTOPHER B Primary Care Unavailabl e CHARLEY, JULIENNE Attending Unavailable RANNEY, CHRISTOPHER B Referring Unavailabl e RANNEY, CHRISTOPHER B Primary Care Unavailabl e Ranney, Christopher Attending Unavailable Ranney, Christopher Referring Unavailable Ranney, Christopher Primary Care Unavailable YO, SCARLET Attending Unavailable YO, SCARLET Referring Unavailable Ranney, Christopher Primary Care Unavailable Roof PANTS CUTTER, Sergei Perez Attending Unavailable Ranney, Christopher Referring Unavailable Ranney, Christopher Primary Care Unavailable Roof PANTS CUTTER, Sergei H Attending Unavailable Ranney, Christopher Referring Unavailable Ranney, Christopher Primary Care Unavailable YO, SCARLET Attending Unavailable YO, SCARLET Referring Unavailable Ranney, Christopher Primary Care Unavailable Ranney, Christmaryer Attending Unavailable Ranney, Christopher Referring Unavailable Ranney, Christopher Primary Care Unavailable Ranney, Christmaryer Attending Unavailable Ranney, Christopher Referring Unavailable Ranney, Christopher Primary Care Unavailable Basali Ayman Attending Unavailable Basali Ayman Referring Unavailable Ranney, Christopher Primary Care Unavailable Allergies Allergy Classification Reported Allergen(s) Allergy Type Date of Onset Reaction(s) Facility (1 source) acetaminophen / oxyCODONE; Translations: [PERCOCET] Drug Allergy [facility] [place] Repository (14 sources) codeine; Translations: [CODEINE] Drug Allergy 6 Vomiting [facility] Repository (14 sources) EPINEPHrine; Translations: [EPINEPHRINE] Drug Allergy 6 VOMITTING AND PASSED OUT WHEN TAKEN IN COMB. WITH DENITA DRUG [facility] [place] Repository (14 sources) Penicillins; Translations: [PENICILLINS] Propensity to adverse reactions (disorder) 6 Vomiting [facility] [place] Repository (12 sources) oxyCODONE; Translations: [oxycodone HCl] Drug Allergy 2 [facility] (1 source) Cephalexin; Translations: [CEPHALEXIN] Drug Allergy 4 [facility] Repository Medications Current Medications Medication Drug Class(es) Dates Sig (Normalized) Sig (Original) lisdexamfetamine dimesylate 50 mg oral capsule (20 sources) Central Nervous System Stimulant Start: 06-22-2020 End: 10-01-2021 take 50 mg by mouth once daily Lisdexamfetamine Active 50 MG PO DAILY October 01, 2021 10:57am Xcjppfkytvvn-Ts-Szpm-M inerals (Multiple Vitamin, Womens) tablet (11 sources) Start: 06-21-2020 take 1 tablet by mouth once daily Ycgvfbowwuhs-Tu-Cpnn- Minerals (Multiple Vitamin, Womens) tablet Active 1 TABLET PO DAILY June 21, 2020 9:02am Start: 06-21-2020 take 1 tablet by darby th once daily Ctauqzxzrrkk-Ic-Giku-Minerals (Multiple Vitamin, Womens) tablet Active 1 TABLET PO DAILY June 20, 2020 11:00pm Start: 06-21-2020 take 1 tablet by darby th once daily Uffiqtzocbkr-Ml-Febt-Minerals (Multiple Vitamin, Womens) tablet Active 1 TABLET PO DAILY June 21, 2020 12:00am ondansetron 4 mg oral tablet (8 sources) Serotonin-3 Receptor Antagonist Start: 04-03-2022 take 1 tablet by mouth every six hours Ondansetron Hcl (Zofran) 4 mg Tablet Active 4 MG PO EVERY 6 HOURS April 03, 2022 12:00am SUMAtriptan 100 mg oral tablet (8 sources) Serotonin-1b and Serotonin-1d Receptor Agonist Start: 04-03-2022 take 2 tablets by mouth every twenty-four hours Sumatriptan Succinate (Imitrex) 100 mg Tablet Active 100 MG PO Q2H April 03, 2022 12:00am do not exceed 2 doses per 24 hrs tiZANidine 4 mg oral tablet (14 sources) Central alpha-2 Adrenergic Agonist Start: 10-29-2022 Tizanidine Active 4 MG PO October 29, 2022 1:00am Start: 06-21-2020 End: 11-07-2020 take 1 capsule by mouth at bedtime Tizanidine (Zanaflex) 2 mg capsule Discontinued 2 MG PO AT BEDTIME June 21, 2020 12:00am November 07, 2020 3:58pm traMADol hydrochloride 50 mg oral tablet (17 sources) Opioid Agonist Start: 10-29-2022 Tramadol Activ e 50 MG PO October 29, 2022 1:00am Start: 04-01-2021 take 50-100 mg by mo uth every eight hours Tramadol Active 50 - 100 MG PO Q8H April 01, 2021 12:29pm Start: 12-01-2018 End: 10-01-2021 take 50 mg by mouth three times daily as needed Tramadol Discontinued 50 MG PO 3 TIMES DAILY NEEDED December 01, 2018 12:00am October 01, 2021 10:57am Completed/Discontinued Medications Medication Drug Class(es) Dates Sig (Normalized) Sig (Original) acetaminophen 325 mg / HYDROcodone bitartrate 5 mg oral tablet (9 sources) Opioid Agonist Start: 04-01-2022 End: 10-29-2022 take 1 tablet by mouth every six hours as needed Hydrocodone-Aceta minophen Discontinued 1 TABLET PO EVERY 6 HOURS NEEDED 6 2 April 01, 2022 October 29, 2022 11:08am cephalexin 500 mg oral capsule (11 sources) Cephalosporin Antibacterial Start: 06-22-2020 End: 11-07-2020 take 500 mg by mouth every six hours Cephalexin Discontinued 500 MG PO EVERY 6 HOURS June 22, 2020 12:00am November 07, 2020 3:57pm diazePAM 5 mg oral tablet (3 sources) Benzodiazepine Start: 10-29-2022 End: 10-30-2022 take 1 tablet by mouth at bedtime Diazepam (Valium) 5 mg tablet Discontinued 5 MG PO AT BEDTIME 1 October 29, 2022 1:00am October 30, 2022 1:05am predniSONE 10 mg oral tablet (11 sources) Start: 07-25-2020 End: 11-07-2020 take 4 tablets by mouth once daily, then take 3 tablets by mouth once daily, then take 2 tablets by mouth once daily, then take 1 tablet by mouth once daily Prednisone Discontinued 10 MG PO DAILY July 25, 2020 1:00am November 07, 2020 3:57pm 4 tablets daily x3 days, then 3 tablets daily x3 days, then 2 tablets daily x3 days, then 1 tablet daily x3 days pregabalin 50 mg oral capsule (11 sources) Start: 03-14-2019 End: 06-21-2020 take 1 capsule by mouth once daily Pregabalin (Lyrica) 50 mg capsule Discontinued 50 MG PO DAILY March 14, 2019 12:00am June 21, 2020 9:02am promethazine hydrochloride 25 mg oral tablet (11 sources) Phenothiazine Start: 12-01-2018 End: 06-21-2020 take 25 mg by mouth every six hours as needed Promethazine Discontinued 25 MG PO EVERY 6 HOURS NEEDED December 01, 2018 12:00am June 21, 2020 9:02am valACYclovir 1000 mg oral tablet (11 sources) Herpesvirus Nucleoside Analog DNA Polymerase Inhibitor, Herpes Simplex Virus Nucleoside Analog DNA Polymerase Inhibitor, Herpes Zoster Virus Nucleoside Analog DNA Polymerase Inhibitor Start: 07-25-2020 End: 11-07-2020 Valacyclovir (Valtrex) 1 gram tablet Discontinued 1000 MG PO THREE TIMES A DAY July 25, 2020 1:00am November 07, 2020 3:58pm no zanaflex while on this medication Problems Active Problems Problem Classification Problem Date Documented Da te Episodic/Chronic Abdominal pain (16 sources) Abdominal pain; Translations: [Unspecified abdominal pain] Episodic Attention-deficit, conduct, and disruptive behavior disorders (11 sources) Attention deficit hyperactivity disorder; Translations: [Attention-deficit hyperactivity disorder, unspecified type] 09-27-2021 Chronic Cardiac dysrhythmias (13 sources) Tachycardia; Translations: [Tachycardia, unspecified] Episodic Complications of surgical procedures or medical care (11 sources) Phlebitis after infusion; Translations: [Vascular complications following infusion, transfusion and therapeutic injection, initial encounter] 06-23-2020 Episodic Conduction disorders (13 sources) Right bundle branch block; Translations: [Unspecified right bundle-branch block] Chronic Essential hypertension (1 source) Essential (primary) hypertension; Translations: [ESSENTIAL PRIMARY HYPERT] Onset: 7 Chronic Fracture of upper limb (20 sources) Closed fracture of distal end of radius; Translations: [Unspecified fracture of the lower end of right radius, initial encounter for closed fracture] Episodic Malaise and fatigue (11 sources) Fatigue; Translations: [Other fatigue] 10-01-2021 Episodic Other circulatory disease (1 source) Arteritis, unspecified; Translations: [Arteritis, unspecified (HCC)] Onset: 9 Chronic Other connective tissue disease (11 sources) Trigger thumb of left hand; Translations: [Trigger thumb, left thumb] 09-27-2021 Episodic Other nervous system disorders (11 sources) Chronic pain syndrome; Translations: [Chronic pain syndrome] 09-27-2021 Chronic Other nervous system disorders (11 sources) Acute postoperative pain; Translations: [Other acute postprocedural pain] 09-27-2021 Episodic Other non-traumatic joint disorders (1 source) Pain in left wrist; Translations: [Pain in left wrist] Onset: 5 Episodic Other screening for suspected conditions (not mental disorders or infectious disease) (12 sources) Electrocardiogram abnormal; Translations: [Abnormal electrocardiogram [ECG] [EKG]] Onset: 5 10-01-2021 Episodic Phlebitis; thrombophlebitis and thromboembolism (11 sources) Thrombophlebitis; Translations: [Phlebitis and thrombophlebitis of unspecified site] 09-27-2021 Episodic Skin and subcutaneous tissue infections (11 sources) Cellulitis of forearm; Translations: [Cellulitis of right upper limb] 06-23-2020 Episodic Spondylosis; intervertebral disc disorders; other back problems (3 sources) Other cervical disc degeneration, unspecified cervical region; Translations: [Spondylosis without myelopathy or radiculopathy, lumbar region] Onset: 9 Chronic Substance-related disorders (1 source) Opioid dependence, uncomplicated; Translations: [Opioid dependence, uncomplicated] Onset: 5 Chronic Viral infection (11 sources) Herpes zoster; Translations: [Zoster without complications] 09-27-2021 Episodic Past or Other Problems Problem Classification Problem [...] Onset: 10-12-2016 Episodic Other connective tissue disease (4 sources) Arthrodesis status; Translations: [S/P spinal fusion] Onset: 08-17-2023 Episodic Other connective tissue disease (2 sources) Plantar fascial fibromatosis; Translations: [Plantar fascial fibromatosis] Onset: 12-24-2008 Episodic Other connective tissue disease (1 source) Pain in unspecified limb; Translations: [Pain in limb] Onset: 12-24-2008 Episodic Other gastrointestinal disorders (1 source) Constipation, unspecified; Translations: [CONSTIPATION UNSPECIFIED] Onset: 10-12-2016 Episodic Other nervous system disorders (2 sources) Other acute postprocedural pain; Translations: [OTHER ACUTE POSTPROCEDUR] Onset: 10-12-2016 Episodic Spondylosis; intervertebral disc disorders; other back problems (20 sources) Radiculopathy, lumbar region; Translations: [Spinal stenosis, cervical region] Onset: 10-12-2016 10-29-2022 Episodic Results Test Name Value Interpretation Reference Range Facility Urgent Care Visit Reporton 0 02-04-2025 Urgent Care Visit Report [facility] [address], [address] [place] [id number] OFFICE VISIT Date of Service: 02/04/25 MR#: [id number] Acct: [id number] Name: CONCHIS BURKS PATRICIO Rep #: [id number] : 1965 Provider: RUBIN velazco Age/Sex: 59/F Location: [facility] Status: Signed Intake Vital Signs 12/17/24 10:57 02/04/25 09:40 Height 5 ft 3 in Weight: 100 lb 8 oz BMI 17.8 BP 102/76 120/80 Blood Pressure Location Lt brachial Lt brachial Position Sitting Sitting Respiration 18 15 Pulse 74 92 Pulse Source Monitor NIBP Temp 98.9 F 98.4 F Temp Source Temporal Oral Pulse Oximetry (%) 97 98 Oxygen Delivery Method room air room air Intake Visit Reasons: L EAR PAIN Chief Complaint: left ear/jaw pain Porcelain Turner Required: No Is patient in pain?: Yes Allergies codeine Adverse Reaction (Verified 02/04/25 09:40) Vomiting epinephrine Adverse Reaction (Verified 02/04/25 09:40) VOMITTING AND PASSED OUT WHEN TAKEN IN COMB. WITH DENITA DRUG oxycodone HCl (From Percocet) Adverse Reaction (Verified 02/04/25 09:40) Itching Penicillins Adverse Reaction (Verified 02/04/25 09:40) Vomiting Is last menstrual period known: No Post menopausal: Yes Patient : No Have you fallen in the past year?: No Nurse's Note: left ear/jaw pain x 3 days. recent viral illness but believes all viral s/s have resolved. denies fever and drainage. [facility] Medical History Arthritis Migraine headache Injury of head and neck History of irregular heartbeat History of echocardiogram History of stress test Cardiology follow-up encounter History of trigger finger Abdominal pain Wears contact lenses Alcohol use Migraine headache Difficulty swallowing Non-smoker History of trigger finger ADHD Trigger thumb of left hand Shingles Thrombophlebitis DDD (degenerative disc disease) Neck pain Chronic pain syndrome Surgical History History of cervical spinal surgery History of appendectomy History of endometrial ablation delivery delivered History of tonsillectomy Fusion of spine Family History Father CVA (cerebral vascular accident) Heart disease afib CVA 54 Grandmother Brain aneurysm Mother Heart disease AFIB Social History household members: spouse and children housing: house number of children: 3 current occupational status: employed Smoking Status: Never smoker alcohol intake: current alcohol intake frequency: a few times a week substance use type: does not use what type of physical activity do you participate in: running, bicycling and swimming frequency: 3-4 times per week do you feel safe at home: Yes HPI HPI Chief Complaint: left ear/jaw pain Details: CONCHIS BURKS, is a 59 F who presents to the office today for left ear and jaw pain. This has been ongoing for 3 days. She states recent viral infection and associated symptoms has resolved. She states or viral symptoms have not been present for weeks. Her pain is worse in the morning. She states recent dental exam with no noted concerns. She denies fever. She has taken OTC medications with no improvement in symptoms. She denies similar symptoms. She states history of seasonal allergies in the fall. ROS Const Constitutional: No body ache, chills, fatigue, fever(s), headache(s) or change in appetite Eyes Eyes: No blurry vision, change in vision, double vision, irritation, discharge, vision loss, dry eyes, bulging eyes, floaters, visual disturbances, eye pain, Light sensitivity, spots in vision, tunnel vision or other ENT ENT: Positive for ear or mastoid pain, dental pain (jaw) and neck pain; No ear discharge, ear pressure, tinnitus, dizziness/vertigo, nosebleed/epistaxis, nasal congestion, nose pain, sinus pressure, sinus pain, nasal discharge, post nasal drip, headache(s), facial pain, difficulty swallowing, bad breath, hoarseness, lip swelling, mouth lesions, mouth pain, sore throat, tongue swelling or throat swelling Resp Respiratory: Positive for cough Cough: Yes productive and change in phlegm color (clear); No chest congestion, hemoptysis, pain on inspiration, shortness of breath, pain with cough, stridor or wheezing Cardio Cardiology: No chest pain at rest, chest pain with exertion, shortness of breath, dyspnea on exertion or lightheadedness Gastro GI: No abdominal pain, change in bowel habits, constipation, diarrhea, difficulty swallowing, nausea/dyspepsia or vomiting Genitourinary-Female: No burning urination or urinary frequency Musc Musculoskeletal: Positive for neck pain; No joint pain Skin Skin: No rash Neuro Neurology (more content not included)... Normal [facility] SCRN MAMM (CAD)W/ROBERTO BILATo n 01-05-2025 SCRN MAMM (CAD)W/ROBERTO BILAT [facility] Imaging Services [address] [place] [address] SCRN MAMM (CAD)W/ROBERTO BILAT MR#: [id number] Acct: [id number] Name: CONCHIS BURKS Rep #: [id number] : 1965 F 59 From: Rosaura Chand PCP: Dr. Ara Ac MD Status: REG CLI Study: SCRN MAMM (CAD)W/ROBERTO BILAT Date of Exam: 10/31 Exam# [id number] Ordering Dr: Ara Ac EXAM: SCRN MAMM (CAD)W/ROBERTO BILAT DATE: 01/05/2025 CLINICAL HISTORY: F, Age 59 y/o , SCREENING BREAST CANCER RISK ASSESSMENT: Has not been calculated. TECHNIQUE: Bilateral screening digital breast tomosynthesis with 2D and 3D images. Computer aided detection. COMPARISON: Prior exam(s) dated 01/18/2023 and 02/07/2021. FINDINGS: TISSUE DENSITY: The breast tissue is extremely dense which lowers the sensitivity of mammography. Bilateral Breast Mammographic Findings: No significant masses, calcifications or other abnormalities are identified. Benign vascular calcifications are seen in both breasts. BI/SCRN MAMM (CAD)W/ROBERTO BILAT IMPRESSION: OVERALL FINAL ASSESSMENT: BIRADS 2 BENIGN FINDING RECOMMENDATION: Routine annual follow-up in 1 Year A letter with findings and recommendations will be mailed to the patient. Reading Location: [id number] CC: Dr. Ara Ac MD Screener And Blender: Signed Normal [facility] Urgent Care Visit Reporton 0 12-17-2024 Urgent Care Visit Report [facility] [address], [address] [place] [address] OFFICE VISIT Date of Service: 12/17/24 MR#: [id number] Acct: [id number] Name: CONCHIS BURKS PATRICIO Rep #: [id number] : 1965 Provider: RUBIN velazco Age/Sex: 59/F Location: [facility] Status: Signed Intake Vital Signs 10/09/23 12:02 12/17/24 10:57 Height 5 ft 3 in 5 ft 3 in Weight: 100 lb 8 oz BMI 17.8 BP 102/76 Blood Pressure Location Lt brachial Position Sitting Respiration 18 Pulse 74 Pulse Source Monitor Temp 98.9 F Temp Source Temporal Pulse Oximetry (%) 97 Oxygen Delivery Method room air Intake Visit Reasons: POSSIBLY LYMES DISEASE Chief Complaint: Tick Bite Is patient in pain?: Yes (tick bite spot ) Allergies codeine Adverse Reaction (Verified 12/17/24 10:56) Vomiting epinephrine Adverse Reaction (Verified 12/17/24 10:56) VOMITTING AND PASSED OUT WHEN TAKEN IN COMB. WITH DENITA DRUG oxycodone HCl (From Percocet) Adverse Reaction (Verified 12/17/24 10:56) Itching Penicillins Adverse Reaction (Verified 12/17/24 10:56) Vomiting Medications ???Medication ???Instructions ???Recorded ???Confirmed ???Type untlkjxilicn-Db-xjkn-mine rals 1 tab PO DAILY 06/21/20 12/17/24 H istory (Multiple Vitamin, Womens tablet) lisdexamfetamine 50 mg capsule 50 mg PO DAILY ADHD 10/01/2112/17 History ondansetron HCl 4 mg tablet 4 mg PO Q6H PRN NAUSEA 04/03/22 History sumatriptan succinate 100 mg 100 mg PO Q2H PRN MIGRAINES 12/17/24 History tablet (Imitrex) tizanidine 4 mg tablet 4 mg PO 10/29/22 12/17/24 History tramadol 50 mg tablet 50 mg PO 10/29/22 12/17/24 History doxycycline hyclate 100 mg capsule 100 mg PO BID 10 days #20 caps 0 12/17/24 12/17/24 Rx Post menopausal: Yes PFSH Medical History Arthritis Migraine headache Injury of head and neck History of irregular heartbeat History of echocardiogram History of stress test Cardiology follow-up encounter History of trigger finger Abdominal pain Wears contact lenses Alcohol use Migraine headache Difficulty swallowing Non-smoker History of trigger finger ADHD Trigger thumb of left hand Shingles Thrombophlebitis DDD (degenerative disc disease) Neck pain Chronic pain syndrome Surgical History History of cervical spinal surgery History of appendectomy History of endometrial ablation delivery delivered History of tonsillectomy Fusion of spine Family History Father CVA (cerebral vascular accident) Heart disease afib CVA 54 Grandmother Brain aneurysm Mother Heart disease AFIB Social History household members: spouse and children housing: house number of children: 3 current occupational status: employed Smoking Status: Never smoker alcohol intake: current alcohol intake frequency: a few times a week substance use type: does not use what type of physical activity do you participate in: running, bicycling and swimming frequency: 3-4 times per week do you feel safe at home: Yes HPI HPI Chief Complaint: Tick Bite Details: CONCHIS BURKS, is a 59 F who presents to the office today for concerns regarding tick bite. She denies systemic symptoms. She noted a tick bite approximately 6 days ago. She removed much of the tick that she could. She now notes continual irritation and increase in redness near tick bite site. ROS Const Constitutional: No body ache, chills, fatigue, fever(s), headache(s), snoring, weakness or sleep problems Eyes Eyes: No blurry vision, change in vision, double vision, irritation, discharge, vision loss, dry eyes, bulging eyes, floaters, visual disturbances, eye pain, Light sensitivity, spots in vision or tunnel vision ENT ENT: No abnormal hearing, ear or mastoid pain, ear discharge, ear pressure, hearing loss, tinnitus, dizziness/vertigo, balance problems, nosebleed/epistaxis, nasal congestion, nasal obstruction, nose pain, sinus pressure, sinus pain, nasal discharge, post nasal drip, headache(s), facial pain, dental pain, dry mouth, difficulty swallowing, bad breath, hoarseness, lip swelling, mouth lesions, mouth pain, neck pain, sore throat, tongue swelling or throat swelling Resp Respiratory: No cough, change in phlegm color, chest congestion, excessive phlegm production, hemoptysis, shortness of breath, snoring, stridor or wheezing Cardio Cardiology: No chest pain at rest, chest pain with exertion, shortness of breath, dyspnea on exertion, generalized swelling, irregular heart rhythm, lightheadedness, orthopnea, radiating jaw, neck or arm pain, fast heart rate, sl (more content not included)... Normal [facility] Wrist min 3 Viewson 11-16-19 Wrist min 3 Views [facility] Imaging Services [address] [place] [address] Wrist min 3 Views MR#: [id number] Acct: [id number] Name: CONCHIS BURKS Rep #: [id number] : 1965 F 59 From: Onel Garcia MD PCP: Dr. Ara Ac MD Status: REG CLI Study: Wrist min 3 Views Date of Exam: 11/15/24 Exam# [id number] Ordering Dr: Ara Ac EXAM: XR Left Wrist Complete, 3 or More Views CLINICAL INDICATION: PAIN, INJURY. SWELLING DISTAL RADIUS TECHNIQUE: Frontal, lateral and oblique views of the left wrist. COMPARISON: No relevant prior studies available. FINDINGS: BONES/JOINTS: Small bony fragment adjacent to the ulnar styloid process could be avulsion fracture indeterminate age. Correlation with point tenderness is recommended. Moderate degenerative change of the 1st carpometacarpal joint. No dislocation. SOFT TISSUES: Soft tissue swelling. No radiopaque foreign body. RAD/Wrist min 3 Views IMPRESSION: Small bony fragment adjacent to the ulnar styloid process could be avulsion fracture indeterminate age. Correlation with point tenderness is recommended. Reading [facility] CC: Dr. Ara Ac MD Screener And Blender: Signed [facility] [id number] 09-20-2024 [facility]. [facility] Comment on above: Order Comment: [id number] TRAMADOL Result Comment: TEST RESULTS LIMITS Tramadol, Urine Tramadol Positive [id number] Tramadol Conf, MS, UR 539 ng/mL [id number] Tramadol detected; this finding can be consistent with use of medications that include Ultram, Topalgic, Tradol, Zydol, or generic formulations. Drugs listed are chain sales representative of common sources of the compound detected and are not intended to include all possible sources. Please Note: Drug test results should be interpreted in the context of clinical information. Patient metabolic variables, specific drug chemistry, and specimen characteristics can affect test outcome. Technical consultation is available if a test result is inconsistent with an expected outcome. Email: [email or web address] PERFORMED AT [facility]. ORIGINAL REPORT ON FILE IN LAB CONTAINS ADDITIONAL TEST SITE INFORMATION. Performed By: #### L 3410.9999 #### [facility] [address] [place], [place], [id number] L3410.9999on 09-14-2024 [facility] Mis. COMMENT Normal . [facility] Comment on above: Order Comment: [id number] 3 URINE TOX Result Comment: Test Ordered: [id number] 6+Oxycodone-Bund Amphetamines, Urine Negative ng/mL UI Reference Range: Yiykyj=5408 Amphetamine test includes Amphetamine and Methamphetamine. Barbiturate Negative ng/mL UI Reference Range: Odlfjb=928 Benzodiazepines Negative ng/mL UI Reference Range: Ttlutz=504 Cannabinoids Negative ng/mL UI Reference Range: Cutoff=20 Cocaine (Metabolite) Negative ng/mL UI Reference Range: Xhdwpo=093 Opiates Negative ng/mL UI Reference Range: Zijkxy=094 Opiate test includes Codeine, Morphine, Hydromorphone, Hydrocodone. Oxycodone/Oxymorphone, Urine Negative ng/mL UI Reference Range: Primtb=312 Test includes Oxycodone and Oxymorphone Performed at: [facility] [address] [place], [place] [id number] Reflector Driller And Deburrer: Leslie Graff PhD, Phone: [phone] Performed at: [address] [id number] Reflector Driller And Deburrer: Samuel Jones PhD, Phone: [phone] Performed By: #### L 505.5000, L3410.9999 #### [facility] [address] [place], [place], [id number] Urine Drug Screen (VISTA)on 09-13-2024 AMPHETAMINES Negative Normal <1000 ng/mL [facility] Comment on above: Order Comment: MEDTO X Performed By: #### L 505.5000, L3410.9999 #### [facility] [address] [place], [place], [id number] BARBITIURATES Negative Normal < 200 ng/mL [facility] Comment on above: Order Comment: MEDTO X Performed By: #### L 505.5000, L3410.9999 #### [facility] [address] [place], [address] BENZODIAZIPINE Negative Normal < 200 ng/mL [facility] Comment on above: Order Comment: MEDTO X Performed By: #### L 505.5000, L3410.9999 #### [facility] [address] [place], [address] COCAINE Negative Normal < 300 ng/mL [facility] Comment on above: Order Comment: MEDTO X Performed By: #### L 505.5000, L3410.9999 #### [facility] [address] [place], [address] ECSTACY Negative Normal < 500 ng/mL [facility] Comment on above: Order Comment: MEDTO X Performed By: #### L 505.5000, L3410.9999 #### [facility] [address] [place], [address] METHADONE Negative Normal < 300 ng/mL [facility] Comment on above: Order Comment: MEDTO X Performed By: #### L 505.5000, L3410.9999 #### [facility] [address] [place], [address] OPIATES Negative Normal < 300 ng/mL [facility] Comment on above: Order Comment: MEDTO X Performed By: #### L 505.5000, L3410.9999 #### [facility] [address] [place], [address] PCP Negative Normal < 25 ng/mL [facility] Comment on above: Order Comment: MEDTO X Performed By: #### L 505.5000, L3410.9999 #### [facility] [address] [place], [address] THC Negative Normal < 50 ng/mL [facility] Comment on above: Order Comment: MEDTO X Performed By: #### L 505.5000, L3410.9999 #### [facility] [address] [place], [address] VISTA UDS PH 7 Normal [facility] Comment on above: Order Comment: MEDTO X Performed By: #### L 505.5000, L3410.9999 #### [facility] [address] [place], [address] CNPNon 08-31-2024 CNPN Telephone (NEAGCLM) ----- CONCHIS BURKS ([id number]) 1965 F Date Time Provider Department 08/31/24 JULIENNE WHITEHEAD I NEAGCLM During your visit today, we recorded the following information about you: Frank Garcia RN 08/31/2024 9:09 AM Signed I attempted to contact the patient in preparation for upcoming appointment with Dr. Whitehead on 09/11/[address]. [address] lumbar and x-rays lumbar ordered at last visit and called to inquire if patient obtained these and had them on a disc from [facility]. LVM with my contact information to contact me back. Frank Garcia RN Allergies As of Date: 08/31/2024 Noted Allergy Reaction CODEINE 03/17/2006 11 - Vomiting EPINEPHRINE 03/17/2006 1 - Mental Status Change PENICILLINS 03/17/2006 11 - Vomiting KEFLEX (CEPHALEXIN) 10/15/2023 2 - Rash Comments: Rash, diarrhea Date Reviewed: 03/01/2024 Reviewed by: Jana Vásquez MA - Fully Assessed Reason for Visit: Surgical Physician Assistant - Other [3602] LMTCB [1226] Prescriptions as of 08/31/2024 - traMADol (ULTRAM) 50 mg tablet - tiZANidine (ZANAFLEX) 4 mg tablet - aspirin 81 mg cap Take by mouth. - amphetamine-dextroampheta mine XR (ADDERALL XR) 10 mg capsule - amphetamine-dextroampheta mine XR (ADDERALL XR) 30 mg capsule - cyclobenzaprine (FLEXERIL) 10 mg tablet Take 1 tablet by mouth three times a day as needed. - MULTIVITAMIN ORAL Take 1 capsule by mouth once daily. - CALCIUM ORAL Take 1 capsule by mouth once daily. Problem List As Of Date 08/31/2024 Noted Resolved KISSING SPINE [M48.20] 12/24/2008 PLANTAR FIBROMATOSIS [M72.2] 12/24/2008 right 2nd and 3rd toe pain [M79.609] 12/24/2008 left foot neuropathy [[id number]] 12/24/2008 ARTERITIS NOS [I77.6] 12/24/2008 Radiculopathy of lumbar region [M54.16] 12/07/2022 S/P spinal fusion [Z98.1] 03/24/2023 Spinal stenosis of cervical region [M48.02] 05/26/2023 Pre-op examination [Z01.818] 08/17/2023 Lumbar spondylosis [M47.816] 09/03/2023 Encounter Status:Closed by FRANK GARCIA on 08/31/24 [facility] Calcaneus min 2 Viewson 09-0 Calcaneus min 2 Views [facility] Imaging Services [address] [place] [id number] Calcaneus min 2 Views MR#: [id number] Acct: [id number] Name: CONCHIS BURKS PATRICIO Rep #: [id number] : 1965 F 58 From: Bin Polk MD PCP: Dr. Ara Ac MD Status: REG CLI Study: Calcaneus min 2 Views Date of Exam: 05/10/24 Exam# [id number] Ordering Dr: Ara Ac [id number] STUDY: X-RAY - LEFT CALCANEUS REASON FOR EXAM: Female, 58 years old. Question bone spur. TECHNIQUE: 2 views of the left calcaneus were obtained. COMPARISON: Left foot radiographs dated 09/11/2013. FINDINGS: Normal visualized calcaneus. There is no enthesophyte or plantar calcaneal spur. There is no demonstrated fracture. RAD/Calcaneus min 2 Views IMPRESSION: No bone spur. Electronically Signed: Bin Polk MD at 9:15 EDT , CC: Dr. Ara Ac MD Screener And Blender: Signed Normal [facility] 03-23-2024 [facility] Telephone (NEAGCLM) ----- CONCHIS BURKS ([id number]) 1965 F Date Time Provider Department 03/23/24 JULIENNE WHITEHEAD I NEAGCLM During your visit today, we recorded the following information about you: Soham Hancock 03/23/2024 9:50 AM Signed Spoke with patient on Wednesday informing her that the insurance company's website is stating her plan termed 09/05/23. Asked if she has a new ID # or if anything has changed with her insurance. She states there have been no changes. Told her I would call the insurance company and get back to her. Attempted to call two different numbers on the back of her insurance card. Both numbers are answered by [employer] but state they are no longer the company who manages this health plan and to contact the company listed on the back of the new card. We do not have a new card in our system. Called patient to explain and see if she is able to provide any more information or if she can contact the company who provides the insurance to see if there have been any changes. Had to leave her a voicemail. Asked that she return my call to discuss. Allergies As of Date: 03/23/2024 Noted Allergy Reaction CODEINE 03/17/2006 11 - Vomiting EPINEPHRINE 03/17/2006 1 - Mental Status Change PENICILLINS 03/17/2006 11 - Vomiting KEFLEX (CEPHALEXIN) 10/15/2023 2 - Rash Comments: Rash, diarrhea Date Reviewed: 03/01/2024 Reviewed by: Jana Vásquez MA - Fully Assessed Reason for Visit: Insurance [Other] Prescriptions as of 03/23/2024 - traMADol (ULTRAM) 50 mg tablet - tiZANidine (ZANAFLEX) 4 mg tablet - aspirin 81 mg cap Take by mouth. - amphetamine-dextroampheta mine XR (ADDERALL XR) 10 mg capsule - amphetamine-dextroampheta mine XR (ADDERALL XR) 30 mg capsule - cyclobenzaprine (FLEXERIL) 10 mg tablet Take 1 tablet by mouth three times a day as needed. - MULTIVITAMIN ORAL Take 1 capsule by mouth once daily. - CALCIUM ORAL Take 1 capsule by mouth once daily. Problem List As Of Date 03/23/2024 Noted Resolved KISSING SPINE [M48.20] 12/24/2008 PLANTAR FIBROMATOSIS [M72.2] 12/24/2008 right 2nd and 3rd toe pain [M79.609] 12/24/2008 left foot neuropathy [[id number]] 12/24/2008 ARTERITIS NOS [I77.6] 12/24/2008 Radiculopathy of lumbar region [M54.16] 12/07/2022 S/P spinal fusion [Z98.1] 03/24/2023 Spinal stenosis of cervical region [M48.02] 05/26/2023 Pre-op examination [Z01.818] 08/17/2023 Lumbar spondylosis [M47.816] 09/03/2023 Encounter Status:Closed by SOHAM HANCOCK on 03/23/24 [facility] Brandi 03-17-2024 [facility] Telephone (NEAGCLM) ----- KIMMIECONCHIS PATRICIO ([id number]) 1965 F Date Time Provider Department 03/17/24 JULIENNE WHITEHEAD I NEAGCLM During your visit today, we recorded the following information about you: Frank Garcia RN 03/17/2024 1:50 PM Signed The patient contacted the office and reported that she had recent visit with her PCP and has continued to have the same symptoms as last visit including left leg weakness and worsening left PSIS region pain. Per Dr. Whitehead's last office note 03/01/2024: She continues to have some issues with pain in the PSIS region on the left side. It is not worsening. It may have gotten a bit better. For now I suggest we keep an eye on it. If symptoms worsen we would need to get some new imaging consisting of at least initially a CT scan. Regardless we will plan to follow-up in 6 months time. She stated her PCP thinks she should have CT obtained. CT scan ordered. Patient requested to have this obtained at [facility]. Let her know we would get the order approved through insurance and faxed over to them. I let her know that she needed to call us when she were scheduled for CT scan and see her back in office for review. She understands and was appreciative. This plan communicated to office staff to get CT submitted. Frank Garcia RN Allergies As of Date: 03/17/2024 Noted Allergy Reaction CODEINE 03/17/2006 11 - Vomiting EPINEPHRINE 03/17/2006 1 - Mental Status Change PENICILLINS 03/17/2006 11 - Vomiting KEFLEX (CEPHALEXIN) 10/15/2023 2 - Rash Comments: Rash, diarrhea Date Reviewed: 03/01/2024 Reviewed by: Jana Vásquez MA - Fully Assessed Primary Visit Diagnosis:Arthrodesis status [Z98.1] Order(s):CT LUMBAR SPINE [facility] [[id number]] Order #: [id number] FUTURE Prescriptions as of 03/17/2024 - traMADol (ULTRAM) 50 mg tablet - tiZANidine (ZANAFLEX) 4 mg tablet - aspirin 81 mg cap Take by mouth. - amphetamine-dextroampheta mine XR (ADDERALL XR) 10 mg capsule - amphetamine-dextroampheta mine XR (ADDERALL XR) 30 mg capsule - cyclobenzaprine (FLEXERIL) 10 mg tablet Take 1 tablet by mouth three times a day as needed. - MULTIVITAMIN ORAL Take 1 capsule by mouth once daily. - CALCIUM ORAL Take 1 capsule by mouth once daily. Problem List As Of Date 03/17/2024 Noted Resolved KISSING SPINE [M48.20] 12/24/2008 PLANTAR FIBROMATOSIS [M72.2] 12/24/2008 right 2nd and 3rd toe pain [M79.609] 12/24/2008 left foot neuropathy [[id number]] 12/24/2008 ARTERITIS NOS [I77.6] 12/24/2008 Radiculopathy of lumbar region [M54.16] 12/07/2022 S/P spinal fusion [Z98.1] 03/24/2023 Spinal stenosis of cervical region [M48.02] 05/26/2023 Pre-op examination [Z01.818] 08/17/2023 Lumbar spondylosis [M47.816] 09/03/2023 Encounter Status:Closed by FRANK GARCIA on 03/17/24 [facility] Office Visit (NEAGCL M) ----- CONCHIS BURKS ([id number]) 1965 F Date Time Provider Department 03/01/24 10:30 AM JULIENNE WHITEHEADAGCLM During your visit today, we recorded the following information about you: Pulse Respiration Blood pressure Weight 76/minute 16/minute 136/77 46.7 kg Julienne Whitehead I, MD 03/01/2024 10:30 AM Signed NEUROSURGERY FOLLOW UP OFFICE NOTE Chair, Clinical Neurosciences Director, [facility] Date of visit: March 01, 2024 Patient Name: Ms.Lisa Patricio Burks Date of : 1965 Current Age: [age] year old Sex: female MRN/E# [id number] Last Office Visit: 12/01/2023 Chief Complaint: Patient presents with: Established Patient SURGERY: L3-5 laminectomy and lateral recess decompression, [...] that radiographic imaging must be completed at [facility]. She was instructed to obtain radiographic [...] for further evaluation, prompting her visit today. She presented to the office 10/11/2023 approximately 5 week post operative visit. She stated she as doing well other than pain at incision site. She had been taking Keflex since Wednesday. Denied any fevers since Wednesday. Denied any drainage since Wednesday. On exam, her wound was essentially healed. There was a small portion towards the caudal end which was slightly reddened with evidence of recent discharge although no active discharge. Nothing could be expressed. It felt like a stitch abscess underneath. She had been started on Keflex. This was increased to 500 mg 4 times daily for an additional week to 10 days with a plan to see her back next week. Overall she had been doing better. We would also start her on some tramadol instead of her oxycodone. She would let us know if things worsened. The patient contacted the office 10/15/2023 and reported worsening redness at incision site in addition to several episodes of diarrhea. Pictures were reviewed in mychart and patient was instructed to discontinue Keflex as it was suspected she was having a mild allergic reaction and switched to doxycycline for 10 days. She was asked to obtain outpatient lab work including CBC, ESR and CRP and follow up in office as scheduled. She presented to the office 10/20/2023 for a 6 week post operative visit. She had been doing well overall. Her incision was healing and the pain was improving. She did have some pressure near her incision site and an itching sensation. She denied any drainage or fevers. She was still on oral antibiotics. She noted some left hip pain and a nerve pain from her left lateral thigh stopping at the l (more content not included)... Normal [facility] L/S Spine Min 4 Viewson - L/S Spine Min 4 Views [facility] Imaging Services [address] [place], [place] [address] L/S Spine Min 4 Views MR#: [id number] Acct: [id number] Name: CONCHIS BURKS Rep #: [id number] : 1965 F 58 From: Vinnie Padgett MD PCP: Dr. Ara Ac MD Status: REG CLI Study: L/S Spine Min 4 Views Date of Exam: 02/28/24 Exam# [id number] Ordering Dr: FRANK GARCIA [id number] STUDY: X-RAY - LUMBAR SPINE REASON FOR EXAM: Female, 58 years old. Follow-up after spinal fusion. TECHNIQUE: 4 view(s) of the lumbar spine, including lateral flexion and extension views, were obtained. COMPARISON: October 18, 2023 FINDINGS: Stable osteopenia. Slight increased lordosis, unchanged. No substantial scoliosis. 11 mm of anterolisthesis of L4 on L5, unchanged from prior study. Stable posterior L4-5 fusion with intervertebral disc prosthesis. Diffuse mild lower thoracic and lumbosacral facet sclerosis. Intervertebral disc space narrowing at L2-3, L3-4 and to the greatest degree L4-5, unchanged from prior study. Limited flexion and extension with no abnormal motion. Tubal ligation clips unchanged. RAD/L/S Spine Min 4 Views IMPRESSION: Stable osteopenia, lumbosacral spondylosis most marked at L4-5 and posterior fusion at L4-5. No acute abnormality or erosive changes. Electronically Signed: Vinnie Padgett MD at 10:43 EDT , CC: FRANK GARCIA; Dr. Ara Ac MD Screener And Blender: Signed Normal [facility] PT D/C Summary (1)on 024 PT D/C Summary (1) [facility] Physical Therapy [facility] [address] [place] [address] / REHABILITATION SERVICES DISCHARGE SUMMARY MR#: [id number] Acct: [id number] Name: CONCHIS BURKS Rep #: [id number] : 1965 58 From: Genaro Gayle DPT, OCS, CSCS Referring DrLizeth: OUT OF TOWN DOCTOR Status: REG R CR Insurance: [employer] SELF PAY INSURANCE Discharge Summary D/C summary: It has been my pleasure to treat CONCHIS BURKS referred by JULIENNE WHITEHEAD, with the diagnosis of s/p spinal fusion for a total of 13 visit(s). Discharge Date: 02/23/24 Please see the following information for a summary of their discharge status. Subjective Subjective: Not any better. Did some running and tripped due to left leg going out when it was underneath her. Went out without warning during walk jog interval. L knee always hurts. Will see surgeon next week. Still has pain in L LB. doing exercises at first but not since her fall . Was not even a mile in when she leg gave out. Pt frustrated with some L LBP and leg giving out with jogging. Pain L hip and LBP: Pain Intensity (Out of 10): 2 Overall Improvement % Improvement: 10 Objective Objective/Function: 38# L HS vs 22#, improving strength despite not completing HEP. Walks normal and LE tests are symmetrical from L to R o4kssmy HS testing above. - TAWANA, - FADDIR, good L hip ROM. LB AROM ext min limited and L SB min limited with pain L5 S1 but not tender in soft tissue in this area. Goals Goal 1:: Lbar ROM all planes without sharp pain L LB and leg Goal Progress: Progressing Goal 2:: I appropriate strength LE adn core and ROM for LB without pain Goal Progress: Goal Met Goal 3:: Hamstring strength on L without cramping and 40# to show improved LE strength Goal Progress: Not Progressing Goal 4:: oswestry back score 3 or less Goal Progress: Goal Met Goal 5:: Plan to return to cycling Goal Progress: Goal Met Plan Plan: pt to doctor next week to review options due to frustration with leg giving out with jogging and continued pain L LB area. is to continue HEP to that point and will be happy to treat fruther if ordered by doctor D/C Information Discharge Comments: Pt to doctor for furtheer options, education on progress. d/c sentence: If there are questions or concerns regarding this patient's physical therapy, please feel free to call me at [phone]. Thank you for the referral of this patient. Sincerely, Genaro Gayle, DPT, OCS, CSCS Balance/Gait/Functional tests Balance/Special Test Scores Oswestry Low Back Score: 3 Improvement % Improvement: 10 02/23/24 0957 CC: Dr. Ara Ac MD; JULIENNE WHITEHEAD EBG Signed Normal [facility] CNOVon 12-01-2023 OV Office Visit (NEAGCL M) ----- IVELISSECONCHIS CHUN ([id number]) 1965 F Date Time Provider Department 12/01/23 10:30 AM JULIENNE WHITEHEAD I NEAGCLM During your visit today, we recorded the following information about you: Pulse Respiration Blood pressure Weight 98/minute 16/minute 143/92 47.4 kg Height 1.6 m Julienne Whitehead I, MD 12/01/2023 11:31 AM Signed NEUROSURGERY POST-OP NOTE Julienne Whitehead MD Chair, Clinical Neurosciences Director, [facility] Date of visit: December 01, 2023 Patient Name: Ms.Lisa Patricio Burks Date of : 1965 Current Age: [age] year old Sex: female MRN/E# [id number] Last Office Visit: 11/12/2023 SURGERY: L3-5 laminectomy and lateral recess decompression, [...] that radiographic imaging must be completed at [facility]. She was instructed to obtain radiographic [...] for further evaluation, prompting her visit today. She presented to the office 10/11/2023 approximately 5 week post operative visit. She stated she as doing well other than pain at incision site. She had been taking Keflex since Wednesday. Denied any fevers since Wednesday. Denied any drainage since Wednesday. On exam, her wound was essentially healed. There was a small portion towards the caudal end which was slightly reddened with evidence of recent discharge although no active discharge. Nothing could be expressed. It felt like a stitch abscess underneath. She had been started on Keflex. This was increased to 500 mg 4 times daily for an additional week to 10 days with a plan to see her back next week. Overall she had been doing better. We would also start her on some tramadol instead of her oxycodone. She would let us know if things worsened. The patient contacted the office 10/15/2023 and reported worsening redness at incision site in addition to several episodes of diarrhea. Pictures were reviewed in Ampulse and patient was instructed to discontinue Keflex as it was suspected she was having a mild allergic reaction and switched to doxycycline for 10 days. She was asked to obtain outpatient lab work including CBC, ESR and CRP and follow up in office as scheduled. She presented to the office 10/20/2023 for a 6 week post operative visit. She had been doing well overall. Her incision was healing and the pain was improving. She did have some pressure near her incision site and an itching sensation. She denied any drainage or fevers. She was still on oral antibiotics. She noted some left hip pain and a nerve pain from her left lateral thigh stopping at the left knee. This nerve pain got worse as (more content not included)... Normal [facility] 11-12-2023 [facility] Telephone (NEAGCLM) ----- CONCHIS BURKS ([id number]) 1965 F Date Time Provider Department 11/12/23 JULIENNE WHITEHEAD I NEAGCLM During your visit today, we recorded the following information about you: Frank Garcia RN 11/12/2023 3:39 PM Signed The patient sent in a Ampulse message with worsening left lateral leg pain and requested a steroid. I spoke with Elida LARRY Giron, ANGEL who recommended trial of gabapentin and patient declined because she states this makes her depressed. Let her know Elida was agreeable to medrol dose han and would get it sent to her pharmacy but that she needed to get established with pain management. She stated she would do so next week. Let her know to contact me and let me know how she was doing upon completion. Frank Garcia RN Allergies As of Date: 11/12/2023 Noted Allergy Reaction CODEINE 03/17/2006 11 - Vomiting EPINEPHRINE 03/17/2006 1 - Mental Status Change PENICILLINS 03/17/2006 11 - Vomiting KEFLEX (CEPHALEXIN) 10/15/2023 2 - Rash Comments: Rash, diarrhea Date Reviewed: 10/20/2023 Reviewed by: Salena Gramajo MA - Fully Assessed Reason for Visit: Surgical Physician Assistant - Other [3602] Prescriptions as of 11/12/2023 - methylPREDNISolone (MEDROL, HAN,) 4 mg Dose-Pack Take as instructed - cyclobenzaprine (FLEXERIL) 10 mg tablet Take 1 tablet by mouth three times a day as needed. - MULTIVITAMIN ORAL Take 1 capsule by mouth once daily. - CALCIUM ORAL Take 1 capsule by mouth once daily. Problem List As Of Date 11/12/2023 Noted Resolved KISSING SPINE [M48.20] 12/24/2008 PLANTAR FIBROMATOSIS [M72.2] 12/24/2008 right 2nd and 3rd toe pain [M79.609] 12/24/2008 left foot neuropathy [[id number]] 12/24/2008 ARTERITIS NOS [I77.6] 12/24/2008 Lumbar radiculopathy [M54.16] 12/07/2022 S/P spinal fusion [Z98.1] 03/24/2023 Spinal stenosis of cervical region [M48.02] 05/26/2023 Pre-op examination [Z01.818] 08/17/2023 Lumbar spondylosis [M47.816] 09/03/2023 Encounter Status:Closed by FRANK GARCIA on 11/12/23 [facility] Brandi 10-29-2023 CNPN Telephone (NEAGCLM) ----- CONCHIS BURKS ([id number]) 1965 F Date Time Provider Department 10/29/23 JULIENNE WHITEHEAD I NEAG[facility] During your visit today, we recorded the following information about you: Frank Garcia, RN 10/29/2023 10:31 AM Signed The patient is s/p L3-5 laminectomy and lateral recess decompression, removal of hardware L4-5, inspection of fusion mass L4-5, reinstrumentation L4-5 with pedicle screw segmental fixation, posterior lateral fusion 09/03/2023 I contacted the patient and informed her that our office typically can only prescribe post operative pain medication 60 days post op and that she was nearing this as of next week. Let her know that if she felt she would continue to require tramadol it would be best to get her established with pain management. She tells me she does not take it frequently throughout the day but does require it at night. She states she has been dealing with a lot of new left back pain and left lateral thigh pain that she mentioned to Dr. Whitehead at last visit. She tells me Dr. Whitehead told her this was likely some irritation that needed some time to settle. She tells me she has a pain management group in [place] that she typically follows with. I recommended she contact them and try to get an appointment for further medication management. Let her know to contact me once she speaks with them so we can come up with a plan for medication. She understands and was appreciative. Frank Garcia RN Allergies As of Date: 10/29/2023 Noted Allergy Reaction CODEINE 03/17/2006 11 - Vomiting EPINEPHRINE 03/17/2006 1 - Mental Status Change PENICILLINS 03/17/2006 11 - Vomiting KEFLEX (CEPHALEXIN) 10/15/2023 2 - Rash Comments: Rash, diarrhea Date Reviewed: 10/20/2023 Reviewed by: Salena Gramajo Ma - Fully Assessed Reason for Visit: Surgical Physician Assistant - Other [3602] Prescriptions as of 10/29/2023 - traMADol (ULTRAM) 50 mg tablet Take 1 tablet by mouth every 8 hours as needed for pain for up to 7 days. - cyclobenzaprine (FLEXERIL) 10 mg tablet Take 1 tablet by mouth three times a day as needed. - MULTIVITAMIN ORAL Take 1 capsule by mouth once daily. - CALCIUM ORAL Take 1 capsule by mouth once daily. Problem List As Of Date 10/29/2023 Noted Resolved KISSING SPINE [M48.20] 12/24/2008 PLANTAR FIBROMATOSIS [M72.2] 12/24/2008 right 2nd and 3rd toe pain [M79.609] 12/24/2008 left foot neuropathy [[id number]] 12/24/2008 ARTERITIS NOS [I77.6] 12/24/2008 Lumbar radiculopathy [M54.16] 12/07/2022 S/P spinal fusion [Z98.1] 03/24/2023 Spinal stenosis of cervical region [M48.02] 05/26/2023 Pre-op examination [Z01.818] 08/17/2023 Lumbar spondylosis [M47.816] 09/03/2023 Encounter Status:Closed by FRANK GARCIA on 10/29/23 [facility] CNPN Telephone (NEAGCLM) ----- CONCHIS BURKS ([id number]) 1965 F Date Time Provider Department 10/29/23 [facility] During your visit today, we recorded the following information about you: Frank Garcia RN 10/29/2023 9:30 AM Signed I attempted to contact the patient to discuss pain management moving forward. Had to leave voicemail. Requested a call back. Frank Garcia RN Allergies As of Date: 10/29/2023 Noted Allergy Reaction CODEINE 03/17/2006 11 - Vomiting EPINEPHRINE 03/17/2006 1 - Mental Status Change PENICILLINS 03/17/2006 11 - Vomiting KEFLEX (CEPHALEXIN) 10/15/2023 2 - Rash Comments: Rash, diarrhea Date Reviewed: 10/20/2023 Reviewed by: Salena Gramajo Ma - Fully Assessed Reason for Visit: [facility] [1226] Prescriptions as of 10/29/2023 - traMADol (ULTRAM) 50 mg tablet Take 1 tablet by mouth every 8 hours as needed for pain for up to 7 days. - cyclobenzaprine (FLEXERIL) 10 mg tablet Take 1 tablet by mouth three times a day as needed. - MULTIVITAMIN ORAL Take 1 capsule by mouth once daily. - CALCIUM ORAL Take 1 capsule by mouth once daily. Problem List As Of Date 10/29/2023 Noted Resolved KISSING SPINE [M48.20] 12/24/2008 PLANTAR FIBROMATOSIS [M72.2] 12/24/2008 right 2nd and 3rd toe pain [M79.609] 12/24/2008 left foot neuropathy [[id number]] 12/24/2008 ARTERITIS NOS [I77.6] 12/24/2008 Lumbar radiculopathy [M54.16] 12/07/2022 S/P spinal fusion [Z98.1] 03/24/2023 Spinal stenosis of cervical region [M48.02] 05/26/2023 Pre-op examination [Z01.818] 08/17/2023 Lumbar spondylosis [M47.816] 09/03/2023 Encounter Status:Closed by FRANK GARCIA on 10/29/23 [facility] CNOVwade 10-20-2023 CNOV Office Visit (NEAGCL M) ----- CONCHIS BURKS ([id number]) 1965 F Date Time Provider Department 10/20/23 10:45 AM JULIENNE WHITEHEADLM During your visit today, we recorded the following information about you: Pulse Respiration Blood pressure Weight 82/minute 16/minute 113/75 46.4 kg Height 1.6 m Julienne Whitehead I, MD 10/20/2023 11:28 AM Signed NEUROSURGERY POST-OP NOTE Julienne Whitehead MD Chair, Clinical Neurosciences Director, Spinal Neuro[facility] Date of visit: October 20, 2023 Patient Name: Ms.Lisa Patricio Burks Date of : 1965 Current Age: [age] year old Sex: female MRN/E# [id number] Last Office Visit: 10/11/2023 SURGERY: L3-5 laminectomy [...] that radiographic imaging must be completed at [facility]. She was instructed to obtain radiographic [...] for further evaluation, prompting her visit today. She presented to the office 10/11/2023 approximately 5 week post operative visit. She stated she as doing well other than pain at incision site. She had been taking Keflex since Wednesday. Denied any fevers since Wednesday. Denied any drainage since Wednesday. On exam, her wound was essentially healed. There was a small portion towards the caudal end which was slightly reddened with evidence of recent discharge although no active discharge. Nothing could be expressed. It felt like a stitch abscess underneath. She had been started on Keflex. This was increased to 500 mg 4 times daily for an additional week to 10 days with a plan to see her back next week. Overall she had been doing better. We would also start her on some tramadol instead of her oxycodone. She would let us know if things worsened. The patient contacted the office 10/15/2023 and reported worsening redness at incision site in addition to several episodes of diarrhea. [facility] and patient was instructed to discontinue Keflex as it was suspected she was having a mild allergic reaction and switched to doxycycline for 10 days. She was asked to obtain outpatient lab work including CBC, ESR and CRP and follow up in office as scheduled. Patient is having their 6 week post operative visit. She has been doing well overall. Her incision is healing and the pain is improving. She does have some pressure near her incision site and an itching sensation. She denies any drainage or fevers. She is still on oral antibiotics. She noted some left hip pain and a nerve pain from her left lateral thigh stopping at the left knee. This nerve pain gets worse as they day goes on. (more content not included)... [facility] CNPGali 10-15-2023 CNPN Telephone (NEAGCLM) ----- CONCHIS BURKS ([id number]) 1965 F Date Time Provider Department 10/15/23 JULIENNE WHITEHEAD I [facility] During your visit today, we recorded the following information about you: Frank Garcia, RN 10/15/2023 11:25 AM Signed The patient contacted the office and stated that yesterday she noticed that the redness at incision site had continued to spread and worsened this morning. She was asked to send in my chart pictures. She reported compliance with Keflex and stated that she had 4 small loose stools yesterday and 2 this morning. She denied any fevers or chills. She did continue with incisional discomfort, redness and swelling. She reported she had been taking abx with meals to avoid GI upset. She also reported that though she started tramadol 10/11/2023, she had taken this in the past with no reaction/known allergy. Pictures of incision were reviewed with Sue Baker APRN, CNP who recommended switching from Keflex to Doxycycline for suspected allergy to Keflex. Of note, patient did test positive for Staph A. On nasal swab with presurgical testing. Also recommended obtaining CBC+diff, ESR and CRP. Informed patient of these recommendations. Patient states that she has to have all imaging and labwork obtained at [facility]. She requested labs be sent to [facility] Ph. [phone] Fax. [phone] Lab orders faxed and requested results faxed to [phone] [facility]. I have asked her to contact me on Wednesday and let me know how she is doing. She is scheduled for office visit 10/20/[address] Whitehead. I did let her know in the meantime if she experiences any fevers/chills or drainage that she needs to go to [facility] over the weekend. She understands. She states she will have labwork obtained and will call me on Wednesday. Frank Garcia RN Allergies As of Date: 10/15/2023 Noted Allergy Reaction CODEINE 03/17/2006 11 - Vomiting EPINEPHRINE 03/17/2006 1 - Mental Status Change PENICILLINS 03/17/2006 11 - Vomiting KEFLEX (CEPHALEXIN) 10/15/2023 2 - Rash Comments: Rash, diarrhea Date Reviewed: 10/11/2023 Reviewed by: Frank Garcia RN - Fully Assessed Reason for Visit: Surgical Physician Assistant - Other [3602] Primary Visit Diagnosis:S/P spinal fusion [Z98.1] Order(s):CBC + DIFF [SQCBCDIF] Order #: [id number] FUTURE SED RATE WESTERGREN [SQWSR] Order #: [id number] FUTURE C-REACTIVE PROTEIN (CRP) [SQCRP] Order #: [id number] FUTURE Prescriptions as of 10/15/2023 - doxycycline (VIBRAMYCIN) 100 mg capsule Take 1 capsule by mouth two times a day for 10 days. - cephALEXin (KEFLEX) 500 mg capsule Take 1 capsule by mouth four times daily for 10 days. - traMADol (ULTRAM) 50 mg tablet Take 1 tablet by mouth every 8 hours as needed for pain for up to 7 days. - cyclobenzaprine (FLEXERIL) 10 mg tablet Take 1 tablet by mouth three times a day as needed. - MULTIVITAMIN ORAL Take 1 capsule by mouth once daily. - CALCIUM ORAL Take 1 capsule by mouth once daily. Problem List As Of Date 10/15/2023 Noted Resolved KISSING SPINE [M48.20] 12/24/2008 PLANTAR FIBROMATOSIS [M72.2] 12/24/2008 right 2nd and 3rd toe pain [M79.609] 12/24/2008 left foot neuropathy [UQU5719] 12/24/2008 ARTERITIS NOS [I77.6] 12/24/2008 Lumbar radiculopathy [M54.16] 12/07/2022 S/P spinal fusion [Z98.1] 03/24/2023 Spinal stenosis of cervical region [M48.02] 05/26/2023 Pre-op examination [Z01.818] 08/17/2023 Lumbar spondylosis [M47.816] 09/03/2023 Encounter Status:Closed by FRANK GARCIA on 10/15/23 [facility] CNOVon 10-11-2023 CNOV Office Visit (NEAGCL M) ----- CONCHIS BURKS ([id number]) 1965 F Date Time Provider Department 10/11/23 11:30 AM JULIENNE WHITEHEAD I [facility] During your visit today, we recorded the following information about you: Pulse Respiration Blood pressure 95/minute 15/minute 142/92 Julienne Whitehead I, MD 10/11/2023 12:41 PM Signed NEUROSURGERY POST-OP NOTE Julienne Whitehead MD Chair, Clinical Neurosciences Director, Spinal [facility] Date of visit: October 11, 2023 Patient Name: Ms.Lisa Patricio Burks Date of : 1965 Current Age: [age] year old Sex: female MRN/E# [id number] Last Office Visit: 10/11/2023 SURGERY: L3-5 laminectomy [...] that radiographic imaging must be completed at [facility]. She was instructed to obtain radiographic [...] weakness and numbness. Hematological: Does not bruise/bleed easi (more content not included)... Normal [facility] CNPNon 10-11-2023 CNPN Telephone (NEAGCLM) ----- CONCHIS BURKS ([id number]) 1965 F Date Time Provider Department 10/11/23 JULIENNE WHITEHEAD Gerson NEAG[facility] During your visit today, we recorded the following information about you: Frank Garcia RN 10/11/2023 10:42 AM Signed Patient contacted the office and stated that she presented to a local urgent care on Wednesday with a fever that started that morning. She did report tenderness at her incision site and was prescribed Keflex 500mg 2x a day for 10 days for concern for infected incision. She stated she had a fever into Wednesday morning but has not had a fever since then. Denies any worsening back or leg symptoms. She reports a small amount of clear drainage from incision on Wednesday. She does state it appears red and swollen. She was asked to come into the office today for evaluation. She was agreeable. Frank Garcia RN Allergies As of Date: 10/11/2023 Noted Allergy Reaction CODEINE 03/17/2006 11 - Vomiting EPINEPHRINE 03/17/2006 1 - Mental Status Change PENICILLINS 03/17/2006 11 - Vomiting Date Reviewed: 09/17/2023 Reviewed by: Salena Gramajo Ma - Fully Assessed Reason for Visit: Patient Update [1234] Prescriptions as of 10/11/2023 - oxyCODONE IR (ROXICODONE) 5 mg immediate release tablet Take 1 tablet by mouth every 8 hours as needed for up to 7 days. - cyclobenzaprine (FLEXERIL) 10 mg tablet Take 1 tablet by mouth three times a day as needed. - MULTIVITAMIN ORAL Take 1 capsule by mouth once daily. - CALCIUM ORAL Take 1 capsule by mouth once daily. Problem List As Of Date 10/11/2023 Noted Resolved KISSING SPINE [M48.20] 12/24/2008 PLANTAR FIBROMATOSIS [M72.2] 12/24/2008 right 2nd and 3rd toe pain [M79.609] 12/24/2008 left foot neuropathy [IOR8013] 12/24/2008 ARTERITIS NOS [I77.6] 12/24/2008 Lumbar radiculopathy [M54.16] 12/07/2022 S/P spinal fusion [Z98.1] 03/24/2023 Spinal stenosis of cervical region [M48.02] 05/26/2023 Pre-op examination [Z01.818] 08/17/2023 Lumbar spondylosis [M47.816] 09/03/2023 Encounter Status:Closed by FRANK GARCIA on [facility]/11/23 [facility] Office Visit (NEAGCL M) ----- CONCHIS BURKS ([id number]) 1965 F Date Time Provider Department 09/17/23 9:30 AM SUE BAKER During your visit today, we recorded the following information about you: Pulse Respiration Blood pressure Weight 82/minute 16/minute 111/71 46 kg Height 1.6 m Sue Baker APRN.STAFF DEVELOPMENT NURSE 09/17/2023 10:44 AM Signed Postoperative Note ELSIE Cruz Date of visit: September 17, 2023 Patient Name: Ms.Lisa Patricio Burks Date of : 1965 Current Age: [age] year old Sex: female MRN/E# [id number] Last Office Visit: 09/09/2023 Postop Lumbar: SURGERY: [...] reports radiographic imaging must be completed at [facility]. Order provided to patient. Instructed patient [...] the best of my ability. Sue Baker APRN-STAFF DEVELOPMENT NURSE [facility] This note was partially generated using Onaro voice recognition system, and there may be some incorrect words, spellings, and punctuation that were not noted in checking the note before saving. Referring Provider: ARA AC [[id number]] Allergies As of Date: 09/17/2023 Noted Allergy Reaction CODEINE 03/17/2006 11 - Vomiting EPINEPHRINE 03/17/2006 1 - Mental Status Change PENICILLINS 03/17/2006 11 - Vomiting Date Reviewed: 09/17/2023 Reviewed by: Salena Gramajo Ma - Fully Assessed Reason for Visit: Established Patient [175] Primary Visit Diagnosis:Lumbar spondylosis [M47.816] Other Visit Diagnosis:S/P spinal fusion [Z98.1] Order(s):XR LUMBAR LIMITED 2V AP/LAT [[id number]] Order #: [id number] FUTURE oxyCODONE IR (ROXICODONE) 5 mg immediate release tabletTake 1 tablet by mouth every 6 hours as needed for up to 7 days.Disp: 28 tabletRfl: 0 cyclobenzaprine (FLEXERIL) 10 mg tabletTake 1 tablet by mouth three times a day as needed.Disp: 90 tabl (more content not included)... Normal [facility] CNDSon 09-07-2023 CNDS HNO ID: [id number] Author: Julienne Whitehead I, MD Service: Neurosurgery Author Type: Physician Type: Discharge Summary Filed: 09/07/2023 2:45 PM Note Text: DISCHARGE SUMMARY PATIENT NAME: Conchis Burks Code Status: Not on file ADMISSION DATE: 09/03/2023 DISCHARGE DATE: September 07, 2023 Highest Readmission Risk Score: 6 The 30 day readmissions risk score is derived from an internally validated risk model which evaluates patient level characteristics, utilization history, medication orders and lab results up until the day of discharge. Patients with a score of 40 or above are considered highest risk for readmission. Specific patient level drivers are listed below. The patient's risk for 30-day readmission is determined using the following contributing factors: 13 Active Medication Orders 11 Most Recent BUN Result 8.1 First Resulted Calcium During Admission 1 Insurance - Medicare 1 History of Anemia REASON FOR HOSPITALIZATION: elective spine surgery DIAGNOSIS: Principal Problem: Lumbar spondylosis (POA: Yes) Resolved Problems: * No resolved hospital problems. * HOSPITAL COURSE: you had surgery as planned without complication. You were then taken to recovery and ultimately to 8100 for excellent nursing care, pain control and therapy. There was difficulty controlling your pain but after 3 days post operatively you were ambulating with therapy, voiding without issue and tolerating your diet. Your pain was well controlled and you were found to be stable for discharge home. CONSULTING TEAMS DURING HOSPITALIZATION: None PATIENT CONDITION AT DISCHARGE: Stable DISCHARGE DISPOSITION: Home with Self Care Discharge Physical Exam: VITAL SIGNS: BP 114/57 Pulse 82 Temp 36.8 ?C (98.2 ?F) (Oral) Resp 20 Ht 160 cm (5' 2.99) Wt 46.5 kg (102 lb 8.2 oz) LMP (LMP Unknown) SpO2 99% BMI 18.16 kg/m? GENERAL: Alert, no distress, cooperative NECK: No jugulovenous distention, Supple BACK: Back symmetric, Normal curvature, ROM normal, No CVAT., incision c/d/i NEURO: Grossly normal cognition, motor function, and cranial nerves III-XII The remainder of the physical exam is noncontributory. INFORMATION PROVIDED TO PATIENT: see D/C instructions ALLERGIES No Known Allergies DISCHARGE MEDICATION: Medication List START taking these medications cyclobenzaprine 10 mg tablet Commonly known as: FLEXERIL Take 1 tablet by mouth three times a day as needed. oxyCODONE IR 5 mg immediate release tablet Commonly known as: ROXICODONE Take 1-2 tablets by mouth every 6 hours as needed for up to 3 days. CONTINUE taking these medications CALCIUM ORAL MULTIVITAMIN ORAL STOP taking these medications aspirin 325 mg tablet lisdexamfetamine 50 mg capsule Commonly known as: VYVANSE SUMAtriptan 50 mg tablet Commonly known as: IMITREX tiZANidine 4 mg tablet Commonly known as: ZANAFLEX ULTRAM 50 mg tablet Generic drug: traMADol VYVANSE 50 mg capsule Generic drug: lisdexamfetamine ZOFRAN 4 mg tablet Generic drug: ondansetron Where to Get Your Medications These medications were sent to [facility] [place] [address] [id number] - [phone] [facility] [address] [facility] [address] cyclobenzaprine 10 mg tablet oxyCODONE IR 5 mg immediate release tablet I evaluated the patient, and have reviewed their diagnosis and clinical course. They were evaluated for non-narcotic pain medications as the sole course of therapy, and were not a candidate. I find the opiate prescribed upon discharge, although greater than a 30 morphine equivalent dose and/or greater than a one week duration, is an appropriate dose for this patient. FUTURE APPOINTMENTS: Future Appointments Date Time Provider Department Center 09/17/2023 9:30 AM Sue Baker APRN.STAFF DEVELOPMENT NURSE [facility] Megan Cordero David I have performed the [id number] and relevant services for a total of < 30 minutes. SIGNATURE: Angelica Smith PA-C PAGER/CONTACT #: [id number] DATE: September 07, 2023 TIME: 10:06 AM I reviewed the pertinent patient history and examination performed by PA/PANTS CUTTER and examined the patient myself on September 07, 2023 Unless indicated below I agree with the plan of care discussed. Julienne Whitehead MD 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 SIGNATURE: Socrates Espinosa PT DATE: September 07, 2023 TIME: 11:08 AM ----- Physical Therapy Treatment SERVICE DATE: 09/07/2023 SERVICE TIME: 853 to 917 ROOM: [id number] Recommended Discharge Disposition: Home PT 6 Clicks Score: 24 Patient requires decreased levels of assist with all mobility tasks. Patient able to safely negotiate stairs for home going. Ok to d/c home today from therapy stand point. Vital Signs Supplemental Vital Signs: Orthostatic BP Comprehensive Orthostatic Vital Signs (Comprehensive) Cuff Location: Left Upper Extremity Lying Pulse: 90 Lying BP: 101/60 Sitting Pulse: 96 Sitting BP: 110/65 Standing Pulse: 106 Standing BP: 94/65 Precautions/Activity Restrictions: Spine Current Hospital Course: L3-5 Lami and decompression removal of hardware L4-5 reinstrumentation L4-5 with posterior lateral spinal fusion Reason for Hospital Admission: back surgery Relevant Past Medical History: Has had 5 prior back surgeries and one neck surgery Response to Therapy Interventions: Good Participation in Activities, Improved Tolerance for Activity, On-Track to Achieve Discharge Goals Continued Skilled Needs Due to: Functional Mobility/Skill Impairments Physical Therapy Problem List: Education Deficit, Safety Deficits, Functional Mobility Impairment Treatment Interventions: Education, Functional Mobility Training, Balance Training Plan for Next Visit: Standing Tolerance, Standing Balance, Fall Prevention, Stair Training, Gait Training, Exercise Instruction/Handout Home Environment Patient Lives With: Spouse Assistance Available: 24-Hour Entry To Home: Stairs Number Of Stairs Into Home: 2 Number Of Stairs To Bed/Bath: 0 Prior Functional Level: Within Functional Limits Prior Functional Level Comments: Normally fully independent can bathe dress drive is very active Subjective: pleasant and agreeable to PT session. stated ready to go home today CURRENT FUNCTIONAL STATUS: Most recent performance mobility performed during session in bold, other mobility completed during prior session and may no longer be correct or appropriate to complete. Current Functional Mobility Assist Level Additional Information Rolling Modified Independent Supine to Sit Modified Independent Sit to Supine Modified Independent Scooting Independent Sit to Stand Stand By Assistance Stand to Sit Stand By Assistance Bed to Chair Toilet/Commode Gait Stand By Assistance Gait Device: None Gait Distance (feet): 150'x2 Stairs Stand By Assistance, Additional Information Stairs Device: Rail Number of Stairs: 4 reciprocal pattern Curb Step Car Transfer Blank cardenas indicate activity not attempted General Deviations/Observations: Arm swing decreased, Step length decreased, Tiffanie decreased, Difficulty changing direction/turning Balance: Static Sitting, Dynamic Sitting, Static Standing, Dynamic Standing Static Sitting Balance: Good Patient able to maintain balance without handhold support, limited postural sway Dynamic Sitting Balance: Good Patient accepts moderate challenge, able to maintain balance while picking up object off floor Static Standing Balance: Good Patient able to maintain balance without handhold support, limited postural sway Dynamic Standing Balance: Good Patient accepts moderate challenge, able to maintain balance while picking up object off floor JH-HLM: 8: Walk 250 feet or more Learning/Educational Needs: Functional Activities/Mobility Goals for Plan of Care: Patient/Caregiver Goals: Go Home Transfer Supine to/from Sit with: Independent Transfer Sit to/from Stand with: Independent Ambulate with: Independent Distance: 50 Device: No Device Ambulate Up and Down Steps with: Independent Number of Steps: 3 Device: Rail Progress Toward Goals: Progressing as expected Rehab Potential: Excellent Patient will be discontinued from Physical Therapy when no further skilled needs are identified in this setting. PLAN: PT Frequency: 4 Times Per Week (2-4) Plan of Care developed with: Patient TREATMENT INTERVENTIONS: Therapy Diagnosis: Reduced mobility-other, General symptoms and signs-other Interventions Provided: Therapeutic Activity (28291) Therapeutic Activity (19639) Treatment Minutes: 24 $ Therapeutic Activity (35615) Billed Units: 2 units patient educated on spinal precautions (handout issued), log roll techniques, safety with transfer, home (more content not included)... Normal [facility] Basic metabolic 2000 panelon 09-04-2023 Anion gap [Moles/Vol] 6 mmol/L Low 9-18 [facility] Comment on above: Order Comment: Speci men Type: BLOOD SPECIMENOrdering Facility: [facility] Address: [address] [place] [address] Performed By: #### 2 4321-2 ####[facility]ORATORYCLIA [id number] [place] [address] [place] Calcium [Mass/Vol] 9.1 mg/dL Normal 8.5-10.2 [facility] Comment on above: Order Comment: Speci men Type: BLOOD SPECIMENOrdering Facility: [facility] Address: [address] [place] [address] Performed By: #### 2 4321-2 ####[facility]ORATORYCLIA [id number] [place] [address] [place] Chloride [Moles/Vol] 102 mmol/L Normal 97-105 [facility] Comment on above: Order Comment: Dericki men Type: BLOOD SPECIMENOrdering Facility: [facility] Address: [address] [place] [address] Performed By: #### 2 4321-2 ####[facility]ORYCLIA [id number] [place] [address] [place] CO2 [Moles/Vol] 28 mmol/L Normal 22-30 [facility] Comment on above: Order Comment: Speci men Type: BLOOD SPECIMENOrdering Facility: [facility] Address: [address] [place] [address] Performed By: #### 2 4321-2 ####[facility]ORYCLIA [id number] [place] [address] [place] Creatinine [Mass/Vol] 0.61 mg/dL Normal 0.58-0.96 [facility] Comment on above: Order Comment: Cordelia marko Type: BLOOD SPECIMENOrdering Facility: [facility] Address: [place] [address] Performed By: #### 2 4321-2 ####[facility]ATORYCLIA [id number] [place] [id number] [place] Creatinine and Glomerular filtration rate.predicted panel (S/P/Bld) 102 mL/min/1.73m??? Normal >=60 [facility] Comment on above: Order Comment: Cordelia zhu Type: BLOOD SPECIMENOrdering Facility: [facility] Address: [address] [place] [address] Result Comment: Jyotsna mated Glomerular Filtration Rate (eGFR) is calculated using the 2020 CKD-EPI creatinine equation. This equation utilizes serum creatinine, sex, and age as parameters. The creatinine assay has traceable calibration to isotope dilution-mass spectrometry. Refer to KDIGO guidelines for clinical interpretation. In patients with unstable renal function, e.g. those with acute kidney injury, the eGFR may not accurately reflect actual GFR. Performed By: #### 2 4321-2 ####[facility]ATORYCLIA [id number] [place] [address] [place] Glucose [Mass/Vol] 120 mg/dL High 74-99 [facility] Comment on above: Order Comment: Cordelia marko Type: BLOOD SPECIMENOrdering Facility: [facility] Address: [address] [place] [address] Result Comment: The [place] Diabetes Association (ADA) provides guidance for cutoff values for fasting glucose and random glucose. The ADA defines fasting as no caloric intake for at least 8 hours. Fasting plasma glucose results between 100 to 125 mg/dL indicate increased risk for diabetes (prediabetes). Fasting plasma glucose results greater than or equal to 126 mg/dL meet the criteria for diagnosis of diabetes. In the absence of unequivocal hyperglycemia, results should be confirmed by repeat testing. In a patient with classic symptoms of hyperglycemia or hyperglycemic crisis, random plasma glucose results greater than or equal to 200 mg/dL meet the criteria for diagnosis of diabetes. Reference: Standards of Medical Care in Diabetes 2016, [place] Diabetes Association. Diabetes Care. 2016.39(Suppl 1). Performed By: #### 2 4321-2 ####[facility]ATORYCLIA [id number] [address] STATES OF [facility] Potassium [Moles/Vol] 3.7 mmol/L Normal 3.7-5.1 [facility] Comment on above: Order Comment: Speci men Type: BLOOD SPECIMENOrdering Facility: [facility] Address: [address] [place] [address] Performed By: #### 2 4321-2 ####[facility]ATORYCLIA [id number] [address] [place] Sodium [Moles/Vol] 136 mmol/L Normal 136-144 [facility] Comment on above: Order Comment: Speci men Type: BLOOD SPECIMENOrdering Facility: [facility] Address: [address] [place] [address] Performed By: #### 2 4321-2 ####[facility]ATORYCLIA [id number] [address] STATES OF [facility] Urea nitrogen [Mass/Vol] 11 mg/dL Normal 7-21 [facility] Comment on above: Order Comment: Speci men Type: BLOOD SPECIMENOrdering Facility: [facility] Address: [address] [place] [address] Performed By: #### 2 4321-2 ####[facility]ATORYCLIA [id number] [address] STATES OF [facility] CBC panel Auto (Bld)on 09-04 Erythrocyte distribution width (RBC) [Ratio] 12.6 % Normal 11.5-15.0 [facility] Comment on above: Order Comment: Speci men Type: BLOOD SPECIMENOrdering Facility: [facility] Address: [address] [place] [address] Performed By: #### 5 8410-2 ####[facility]ATORYCLIA [id number] [address] [place] Hematocrit (Bld) [Volume fraction] 27.6 % Low 36.0-46.0 [facility] Comment on above: Order Comment: Speci men Type: BLOOD SPECIMENOrdering Facility: [facility] Address: [address] [place] [address] Performed By: #### 5 8410-2 ####[facility]ATORYCLIA [id number] [address] Hemoglobin (Bld) [Mass/Vol] 9.5 g/dL Low 11.5-15.5 [facility] Comment on above: Order Comment: Speci men Type: BLOOD SPECIMENOrdering Facility: [facility] Address: [address] [place] [address] Performed By: #### 5 8410-2 ####[facility]ATORYCLIA [id number] [address] MCH (RBC) [Entitic mass] 32.6 pg Normal 26.0-34.0 [facility] Comment on above: Order Comment: Speci men Type: BLOOD SPECIMENOrdering Facility: [facility] Address: [address] [place] [address] Performed By: #### 5 8410-2 ####[facility]ATORYCLIA [id number] [address] STATES [facility] MCHC (RBC) [Mass/Vol] 34.4 g/dL Normal 30.5-36.0 [facility] Comment on above: Order Comment: Speci men Type: BLOOD SPECIMENOrdering Facility: [facility] Address: [address] [place] [address] Performed By: #### 5 8410-2 ####[facility]ATORYCLIA [id number] [address] [place] MCV (RBC) [Entitic vol] 94.8 fL Normal 80.0-100.0 [facility] Comment on above: Order Comment: Speci men Type: BLOOD SPECIMENOrdering Facility: [facility] Address: [address] [place] [address] Performed By: #### 5 8410-2 ####[facility]ORATORYCLIA [id number] [place] [address] [place] Nucleated RBC (Bld) [#/Vol] 10*3/uL Normal <0.01 [facility] Comment on above: Order Comment: Speci men Type: BLOOD SPECIMENOrdering Facility: [facility] Address: [address] [place] [address] Performed By: #### 5 8410-2 ####[facility]ATORYCLIA [id number] [place] [address] [place] Platelet mean volume (Bld) [Entitic vol] 10.0 fL Normal 9.0-12.7 [facility] Comment on above: Order Comment: Speci men Type: BLOOD SPECIMENOrdering Facility: [facility] Address: [address] [place] [address] Performed By: #### 5 8410-2 ####[facility]ATORYCLIA [id number] [address] [place] Platelets (Bld) [#/Vol] 198 10*3/uL Normal 150-400 [facility] Comment on above: Order Comment: Speci men Type: BLOOD SPECIMENOrdering Facility: [facility] Address: [address] [place] [address] Performed By: #### 5 8410-2 ####[facility]ATORYCLIA [id number] [address] [place] RBC (Bld) [#/Vol] 2.91 10*6/uL Low 3.90-5.20 [facility] Comment on above: Order Comment: Speci men Type: BLOOD SPECIMENOrdering Facility: [facility] Address: [address] [place] [address] Performed By: #### 5 8410-2 ####[facility]ATORYCLIA [id number] [place] [address] [place] WBC (Bld) [#/Vol] 8.59 10*3/uL Normal 3.70-11.00 [facility] Comment on above: Order Comment: Speci men Type: BLOOD SPECIMENOrdering Facility: [facility] Address: [address] [place] [address] Performed By: #### 5 8410-2 ####[facility]ATORYCLIA [id number] [address] THERAPY NTon 09-04-2023 THERAPY NT HNO ID: [id number] Author: Светлана Robles OTR/Nicki Service: Occupational Therapy Author Type: Occupational Therapist Type: Therapy (PT/OT/Speech/Resp) Filed: 09/04/2023 4:09 PM Note Text: OCCUPATIONAL THERAPY MISSED VISIT SERVICE DATE: 09/04/2023 SERVICE TIME: 1450 to 1455 ROOM: [place] [address] Patient not seen due to Clinical Appropriateness. Chart reviewed. Patient with history of multiple spine surgeries. Education provided in role of OT in acute hospital setting to facilitate safety and participation in self-care tasks with assisting with discharge planning. Patient declines OT needs. OT will sing off at patient request. SIGNATURE: ANDRES Zheng/Nicki PATIENT NAME: Conchis Burks DATE: September 04, 2023 TIME: 4:08 PM Normal [facility] THERAPY NT HNO ID: [id number] Author: Jazzy Schreiber, PT Service: Physical Therapy Author Type: Physical Therapist Type: Therapy (PT/OT/Speech/Resp) Filed: 09/04/2023 2:33 PM Note Text: Physical Therapy Evaluation SERVICE DATE: 09/04/2023 SERVICE TIME: 1407 to 1425 ROOM: [place] [address] Recommended Discharge Disposition: Home Patient seen for physical therapy assessment this afternoon. She is having better pain control and was agreeable physical therapy Patient able to walk safely down the hallway. Educated to walk with her family if becoming lightheaded. PT 6 Clicks Score: 19 Precautions/Activity Restrictions: Spine Current Hospital Course: L3-5 Lami and decompression removal of hardware L4-5 reinstrumentation L4-5 with posterior lateral spinal fusion Reason for Hospital Admission: back surgery Relevant Past Medical History: Has had 5 prior back surgeries and one neck surgery Response to Therapy Interventions: Good Participation in Activities Continued Skilled Needs Due to: Functional Mobility/Skill Impairments Physical Therapy Problem List: Education Deficit, Safety Deficits, Functional Mobility Impairment Treatment Interventions: Education, Functional Mobility Training, Balance Training Home Environment Patient Lives With: Spouse Assistance Available: 24-Hour Entry To Home: Stairs Number Of Stairs Into Home: 2 Number Of Stairs To Bed/Bath: 0 Prior Functional Level: Within Functional Limits Prior Functional Level Comments: Normally fully independent can bathe dress drive is very active Subjective: Patient states her pain is finally starting to get under control and is agreeable to therapy CURRENT FUNCTIONAL STATUS: Most recent performance Current Functional Mobility Assist Level Additional Information Rolling Minimal Assistance Supine to Sit Minimal Assistance Sit to Supine Minimal Assistance Scooting Sit to Stand Contact Guard Assistance Stand to Sit Contact Guard Assistance Bed to Chair Toilet/Commode Gait Stand By Assistance Gait Device: IV Pole Gait Distance (feet): 150ft Stairs Curb Step Car Transfer Blank cardenas indicate activity not attempted General Deviations/Observations: Tiffanie decreased 6Range of Motion: WFL Strength: WFL Balance: Static Sitting, Dynamic Sitting, Static Standing, Dynamic Standing Static Sitting Balance: Good Patient able to maintain balance without handhold support, limited postural sway Dynamic Sitting Balance: Good Patient accepts moderate challenge, able to maintain balance while picking up object off floor Static Standing Balance: Good Patient able to maintain balance without handhold support, limited postural sway Dynamic Standing Balance: Good Patient accepts moderate challenge, able to maintain balance while picking up object off floor JH-HLM: 7: Walk 25 feet or more Learning/Educational Needs: Functional Activities/Mobility Goals for Plan of Care: Patient/Caregiver Goals: Go Home Transfer Supine to/from Sit with: Independent Transfer Sit to/from Stand with: Independent Ambulate with: Independent Distance: 50 Device: No Device Ambulate Up and Down Steps with: Independent Number of Steps: 3 Device: Rail Rehab Potential: Excellent Patient will be discontinued from Physical Therapy when no further skilled needs are identified in this setting. PLAN: PT Frequency: 4 Times Per Week (2-4) Plan of Care developed with: Patient TREATMENT INTERVENTIONS: Therapy Diagnosis: Reduced mobility-other, General symptoms and signs-other Interventions Provided: Evaluation $ Evaluation-Moderate (73984) Billed Units: 1 unit Reviewed spine safety and logroll, applied ice to her low back after session. Training AND Education Provided in: Benefits of In-Hospital Mobility The Following Therapeutic Skills Were Used: Cuing Verbal Skilled Treatment Time (minutes): 18 Please see discipline specific clinical documentation flowsheet for complete details for this therapy evaluation/treatment. SIGNATURE: Jazzy Schreiber PT PATIENT NAME: Conchis Burks DATE: September 04, 2023 TIME: 2:32 PM Normal [facility] ANES POSTPROC EVALon 023 ANES POSTPROC EVAL HNO ID: [id number] Author: Robbin Castellanos MD Service: Anesthesiology Author Type: Physician Type: Anesthesia Postprocedure Evaluation Filed: 09/03/2023 3:28 PM Note Text: POST ANESTHESIA EVALUATION NOTE : 1965 Procedure Summary Date: 09/03/23 Room / Location: SD OR 26 / SD OR Anesthesia Start: 758 Anesthesia Stop: 123 Procedures: L3-5 laminectomy, exploration of L4-5 fusion, possible re-instrumentation (Back lower ) EXPLORATION OF SPINAL FUSION (Back lower ) FUSION LUMBAR POSTERIOR LEVEL 1 (Back lower ) POSTERIOR NON-SEGMENTAL INSTRUMENTATION FOLLOWING LUMBAR FUSION 1 LEVEL PDFI (Back lower ) ALLOGRAFT FOR SPINE SURGERY MORSELIZED (Back lower ) AUTOGRAFT FOR SPINE SURGERY ONLY, OBTAINED FROM SAME INCISION (Back lower ) Diagnosis: Lumbar radiculopathy S/P spinal fusion (Lumbar radiculopathy [M54.16]) (S/P spinal fusion [Z98.1]) Surgeons: Julienne Whitehead I, MD Responsible Provider: Robbin Castellanos MD Anesthesia Type: general ASA Status: 2 Anesthesia Type: general Airway Type: ETT Last Vitals Vitals Value Taken Time BP 129/85 09/03/23 1515 Temp 36.4 ?C (97.5 ?F) 09/03/23 1315 HR SpO2 74 09/03/23 1526 Resp 26 09/03/23 1526 SpO2 100 % 09/03/23 1524 Vitals shown include unfiled device data. Post Anesthesia Patient Status Patient Evaluation: PACU. PACU/ICU Patient Condition: stable. Anticipated Disposition: inpatient floor planned admission. Neurological Status: aware and responsive. Pulmonary Status: breathing comfortably on supplemental oxygen Airway Control: returned to baseline unsupported. Cardiovascular Status: stable. Pain Management: clinically adequate Postoperative Hydration: acceptable. Intraoperative Events: no significant anesthesia events Post Operative Nausea/Vomiting Status: no significant post operative nausea or vomiting Recommendation: continue current plan of care and further care per PACU/ICU/floor team. Anesthesia Observations No Documentation SIGNATURE: Robbin Castellanos MD PATIENT NAME: Conchis Burks DATE: September 03, 2023 TIME: 3:27 PM CSN: [id number] [facility] ANES PRE-OPon 09-03-2023 ANES PRE-OP HNO ID: [id number] Author: Lesvia Hernandez MD Service: Anesthesiology Author Type: Anesthesiologist Type: Anesthesia Preprocedure Evaluation Filed: 09/03/2023 7:26 AM Note Text: ANESTHESIOLOGY DAY OF SURGERY NOTE L3-5 laminectomy Hx cervical (C2-C7) and lumbar fusions neuro - sumatriptan, tramadol (taken this am), vyvanse TANDS no abs no airway - though patient says has had successful surgeries since the fusion : 1965 Procedure Information Date/Time: 09/03/23 0800 Procedures: L3-5 laminectomy, exploration of L4-5 fusion, possible re-instrumentation (Back lower ) EXPLORATION OF SPINAL FUSION (Back lower ) FUSION LUMBAR POSTERIOR LEVEL 1 (Back lower ) POSTERIOR NON-SEGMENTAL INSTRUMENTATION FOLLOWING LUMBAR FUSION 1 LEVEL PDFI (Back lower ) ALLOGRAFT FOR SPINE SURGERY MORSELIZED (Back lower ) AUTOGRAFT FOR SPINE SURGERY ONLY, OBTAINED FROM SAME INCISION (Back lower ) [employer] STEREOTACTIC COMPUTER-ASSISTED NAVIGATIONAL PROCEDURE SPINAL (Back lower ) Location: SD OR / SD OR Surgeons: Julienne Whitehead I, MD Estimated body mass index is 18.07 kg/m? as calculated from the following: Height as of 08/20/23: 160 cm (5' 3). Weight as of 08/20/23: 46.3 kg (102 lb). Most recent hematocrit and potassium results: Hematocrit 31.0 10/14/2016 Potassium 3.6 10/14/2016 Relevant Problems CARDIO (+) Arteritis, unspecified (HCC) I - PHYSICAL EVALUATION AIRWAY Patient intubated: No. Tracheostomy tube not present Mallampati: III. TM distance: >3 FB. Neck ROM: limited flexion and extension. Mouth opening: adequate. Short neck: no. Thick neck: no DENTAL Dental findings: teeth intact. II - ANESTHESIA PLAN ASA Score: 2 Anesthetic Plan: general Airway type: ETT NPO Status: adequate Beta Emily Monitoring Plan Monitoring plan: standard ASA. Post Procedure Analgesic Plan Postoperative analgesic plan: multimodal analgesia. Informed Consent Anesthetic risks, benefits, alternatives, personnel and consent discussed: yes. Patient / Responsible Democrat agrees to proceed: yes Patient / Surrogate agrees to blood products: Yes Potential Anesthesia issues that may suggest increased risk of complications or contraindication to planned procedure: potential difficult intubation and potential difficult IV access. No vitals data found for the desired time range. No current facility-administered medications on file as of 09/03/2023. Outpatient Medications as of 09/03/2023 Medication Sig - lisdexamfetamine (VYVANSE) 50 mg capsule - VYVANSE 50 mg capsule Take 1 capsule by mouth once daily. - aspirin 325 mg tablet Take 325 mg by mouth as needed for pain. - SUMAtriptan (IMITREX) 50 mg tablet Take 50 mg by mouth as needed for migraine headache (see administration instructions). - ondansetron (ZOFRAN) 4 mg tablet Take 4 mg by mouth every 8 hours as needed for nausea/vomiting (migraine). - tiZANidine (ZANAFLEX) 4 mg tablet Take 1 tablet by mouth twice daily as needed. - MULTIVITAMIN ORAL Take 1 capsule by mouth once daily. - CALCIUM ORAL Take 1 capsule by mouth once daily. - tramadol hcl(ULTRAM 50 MG TAB) Take one(1) tablet every four(4) to six(6) hours as needed for pain. I have interviewed and examined the patient. I have reviewed the medical record and/or the pre-anesthesia evaluation, pertinent labs, and test results. This contains updated information obtained within 48 hours of Surgery/Procedure. SIGNATURE: Lesvia Hernandez MD PATIENT NAME: Conchis Burks DATE: September 03, 2023 TIME: 7:11 AM CSN: [id number] Normal [facility] HISTORY PHYSICALon HISTORY PHYSICAL HNO ID: [id number] Author: Julienne Whiteehad I, MD Service: Neurosurgery Author Type: Physician Type: HANDP Filed: 09/03/2023 7:52 AM Note Text: UPDATED HISTORY AND PHYSICAL EXAMINATION SERVICE DATE: 09/03/2023 SERVICE TIME: 740 PHYSICAL EXAM MUST BE COMPLETED ON ADMISSION The History and Physical (completed in the past 30 days) has been reviewed and the patient has been examined. The contents accurately reflect the patient's condition with the following additions or revisions since the HANDP was completed. Examination indicates no changes. This HANDP can be found in the Electronic Medical Record dated 08/20/23. Patient seen in preop area. No new issues/ symptoms. Reviewed plan for L3-5 laminectomy, possible reinstrumentation. All questions answered. Patient marked. MD Jean SIGNATURE: Julienne Whitehead MD PATIENT NAME: Conchis Burks DATE: September 03, 2023 TIME: 7:39 AM Normal [facility] OPERATIVE NOon 09-03-2023 OPERATIVE NO HNO ID: [id number] Author: Julienne Whitehead I, MD Service: Neurosurgery Author Type: Physician Type: Operative Report Filed: 09/03/2023 12:12 PM Note Text: OPERATIVE/PROCEDURE REPORT LOG ID: [id number] SURGERY/PROCEDURE DATE: 09/03/2023 INCISION/PROCEDURE START TIME: 8:45 AM INCISION CLOSE/PROCEDURE END TIME: SURGEON(S)/PROCEDURALIST( S) AND CHECKING CLERK(S): Surgeon(s) and Role: * Julienne Whitehead I, MD - Primary Physician Wood Engraver: Patria Jennings PA-C SURGERY/PROCEDURE(S): L3-5 laminectomy and lateral recess decompression, removal of hardware L4-5, inspection of fusion mass L4-5, reinstrumentation L4-5 with pedicle screw segmental fixation, posterior lateral fusion, local autograft, allograft ANESTHESIA: General SURGERY/PROCEDURE DETAILS: Clinical history This 58-year-old woman underwent a L4-5 minimally invasive lumbar fusion in 2017. Approximately 1 year postoperatively she began complaining of left-sided radicular symptoms. More recently she describes progression of radicular symptoms treated with an epidural steroid injection however weakness in the left foot. Imaging finding was somewhat inconclusive with respect to potential pseudoarthrosis. There is evidence of lateral recess stenosis bilaterally at L4-5 as well as a modest amount of stenosis at L3-4. I recommended decompressive procedure across that region with inspection of fusion mass and potential reinstrumentation. Informed consent was obtained preoperatively. Procedure note Patient brought to the operating room. There she was induced under general anesthesia and intubated. She positioned prone on the Waldo table. The entire region over her lumbosacral spine was prepped and draped in the usual fashion. I plan for him incision to extend from L3 down through L5. Skin was infiltrated with 1.75% Marcaine containing epinephrine. Skin was incised using a 10 blade scalpel. Monopolar cautery continued dissection down through subcutaneous tissue midline fascia. I dissected the paraspinal muscles off the spinous process and lamina in the [id number] working out laterally and ultimately identifying hardware consisting of the L4 and L5 pedicle screws. Next I inspected the L4-5 joint. On the left side there appeared to be evidence of residual joint. I ultimately removed the rods bilaterally and the construct and used a Dirk on the L5 screw to try and mobilize. There appeared to be some micromotion through the L4-5 joints at least on the left. I then elected to remove the screws. After ensuring there is no breaches screws were placed and upsized with a 7.5 x 40 mm globus Creo screws and all pedicles except for the left L5 were 6.5 x 40 mm screw was used. Satisfied with instrumentation and then turned towards decompression. The spinous process of L4 was removed as was the inferior third of the spinous process of L3 and superior third of the spinous process of L5. Focusing mostly on the patient's left side her symptomatic side and then thinned out the lamina across that entire region using a bur drill. Kerrison punch completed the laminectomy. I then began working on the left side primarily into the lateral recesses to decompress the nerve roots. I did work across midline on the right side more centrally in a similar fashion. With no further evidence of compression across the this region and then irrigated out with copious amounts normal saline. Rods were then measured and placed into the screw heads. They were final tightened down. And then decorticated across the L4 lamina as well as the L5 lamina and the L4-5 joint in particular decorticating primarily in the joint. Again on the left side there appeared to be no clear evidence of effusion on the right side it was somewhat more conclusive. A combination of locally collected autograft as well as DBX was then placed across the posterior lateral processes in preparation for arthrodesis. We turned towards closure. Floseal and Gelfoam was laid across the exposed dura. The wound was closed in layers after #10 Waldo-Ken drain was left in situ. 0 Vicryl sutures were used to reapproximate the fascia, 2-0 Vicryl the subcutaneous tissue and 3-0 Monocryl in a running fashion for skin with skin glue over top. Counts were correct at the end of the case. No complications. Estimate blood loss was 200 cc. At the end of the case the patient was returned to the supine position. She was reversed from her anesthesia and extubated. She was transferred onto the PACU in stable condition. PRE-OP/PRE-PROCEDURE DIAGNOSIS: Number radiculopathy, lumbar stenosis POST-OP/POST-PROCEDURE DIAGNOSIS: Same as Preop, lumbar pseudoarthrosis ESTIMATED BLOOD LOSS: 200 cc mls SPECIMENS: None IMPLANTABLE DEVICES: Implant Name Type Inv. Item Serial No. Adaptive Physical Education Teacher Lot No. LRB No. Used Action GRAFT BONE PUTTY DEMINERLIZED BONE [facility] 300 - [id number] Bon (more content not included)... Normal [facility] XR LUMBAR 2V AP/LATon 2022 XR LUMBAR 2V AP/LAT * * *Final Report* * * DATE OF EXAM: Sep 03 2023 12:13PM [facility] 5229 - XR LUMBAR 2V AP/LAT / PROCEDURE REASON: L4-5 FUSION * * * * Physician Interpretation * * * * XR LUMBAR 2V AP/LAT HISTORY: L4-5 FUSION TECHNIQUE: 2 fluoroscopic image(s) obtained for intraoperative fluoroscopic guidance. Please refer to the operative notes for details. Fluoroscopic Radiation Summary: Plane A, Air Kerma: 1.6 mGy Dose Area Product (DAP): 282.4 mGy*cm^2 Fluoro time: 0:06 min:sec IMPRESSION: Documentation of intraoperative fluoroscopic guidance as above Screener And Blender: P[facility] Transcribe Date/Time: Sep 03 2023 2:15P Dictated by : MARSISA STOKES MD This examination was interpreted and the report reviewed and electronically signed by: MARISSA STOKES MD on Sep 03 2023 2:15PM EST [id number] Normal [facility] XR LUMBAR 3V AP/LAT/L5-S1on 09-03-2023 XR LUMBAR 3V AP/LAT/L5-S1 * * *Final Report* * * DATE OF EXAM: Sep 03 2023 10:34PM [facility] 5228 - XR LUMBAR 3V AP/LAT/L5-S1 / PROCEDURE REASON: Postoperative assessment * * * * Physician Interpretation * * * * EXAM TITLE: XR LUMBAR 3V AP/LAT/L5-S1 DATE: 09/03/2023 INDICATION: Status post lumbar fusion. COMPARISON: 06/18/2023 AP and lateral views lumbar spine show pedicle screws and stabilizing rods extending from L4 to L5. Interbody fusion device is noted. Counting lumbar levels on this exam is based on L4-5 disc level as a reference level located at the top of the iliac crests. Assume 5 lumbar type vertebral bodies. Bony alignment is remarkable for 6 mm anterolisthesis of L4 on L5. Remainder bony alignment is anatomic. Lumbar disc spaces are otherwise maintained. Surgical drain is seen in the operative site. Tubal ligation clips noted in the pelvis. Air-fluid level noted in the stomach. Lung bases are clear. IMPRESSION: Status post discectomy and fusion at L4-5. Screener And Blender: [facility] Transcribe Date/Time: Sep 04 2023 8:18A Dictated by : VINNIE GONZALEZ MD This examination was interpreted and the report reviewed and electronically signed by: VINNIE GONZALEZ MD on Sep 04 2023 8:19AM EST [id number] Normal [facility] Basophil percentageon 2021 Chloride [Moles/Vol] 102 mmol/L 98-107 [facility] Work Phone: Glucose [Mass/Vol] 103 mg/dL 74-106 [facility] Work Phone: Comment on above: Fasting Glucose resu lt from 100 to 125 mg/dL suggests IMPAIRED HOMEOSTASIS per A.D.A. criteria. Potassium [Moles/Vol] 3.3 mmol/L 3.5-5.1 [facility] Work Phone: Sodium [Moles/Vol] 136 mmol/L 136-145 [facility] Work Phone: WBC (Bld) [#/Vol] 7.6 10*3/uL 4.4-11.0 [facility] Work Phone: Blood erythrocytes count (nu mber/volume)on 04-03-2022 RBC (Bld) [#/Vol] 3.84 10*6/uL 4.2-5.4 [facility] Work Phone: Blood hemoglobin measurement (mass/volume)on 04-03-2022 Hemoglobin (Bld) [Mass/Vol] 12.6 g/dL 12.0-15.0 [facility] Work Phone: Blood platelet mean volumeon 04-03-2022 Platelet mean volume (Bld) [Entitic vol] 10.2 fL 6.2-12.0 [facility] Work Phone: Determination of erythrocyte mean corpuscular volume (MCV)on 04-03-2022 MCV (RBC) [Entitic vol] 99.2 fL 81-99 [facility] Work Phone: Hematocrit Auto (Bld) [Volum e fraction]on 04-03-2022 Hematocrit (Bld) [Volume fraction] 38.1 % 37-47 [facility] Work Phone: Laboratory - Chemistry and C hemistry - challengeon 04-03-2022 CO2 [Moles/Vol] 30.0 mmol/L 21.0-32.0 [facility] Work Phone: Urea nitrogen/Creatinine [Mass ratio] 16.2 mg/mg 10-20 [facility] Work Phone: Laboratory - Hematology and Cell countson 04-03-2022 Erythrocyte distribution width (RBC) [Entitic vol] 47.3 fL 35.1-43.9 [facility] Work Phone: Erythrocyte distribution width (RBC) [Ratio] 13.0 % 11.6-14.6 [facility] Work Phone: MCH (RBC) [Entitic mass] 32.8 pg 27.0-32.0 [facility] Work Phone: MCHC Auto (RBC) [Mass/Vol]on 04-03-2022 MCHC (RBC) [Mass/Vol] 33.1 g/dL 32-36 [facility] Work Phone: No Panel Informationon 04-03 Estimated GFR (MDRD) Amer 115 mL/min >60 [facility] Work Phone: Comment on above: GFR Calc Estimated GFR (MDRD) Non-Af Amer 95 mL/min >60 [facility] Work Phone: Comment on above: Non- GFR Calc Platelets bldon 04-03-2022 Platelets (Bld) [#/Vol] 232 10*3/uL 150-450 [facility] Work Phone: Serum or plasma calcium jcarlos urement (mass/volume)on 04-03-2022 Calcium [Mass/Vol] 10.1 mg/dL 8.5-10.1 [facility] Work Phone: Serum or plasma creatinine m easurement (mass/volume)on 04-03-2022 Creatinine [Mass/Vol] 0.68 mg/dL 0.55-1.02 [facility] Work Phone: Comment on above: The validity of the calculated GFR & GFRAA in patients over 70 years has not been determined. Clinical correlation is essential. Serum or plasma urea nitroge n measurement (mass/volume)on 04-03-2022 Urea nitrogen [Mass/Vol] 11 mg/dL 7-18 [facility] Work Phone: Thin prep Papanicolaou smear with manual screeningon 04-03-2022 Thin prep Papanicolaou smear with manual screening 4 5-15 [facility] Work Phone: Basophil percentageon 2021 Basophil percentage 0 SEEN /hpf 0-5 [facility] Work Phone: Bilirubin Test strip Ql (U)o n 01-05-2022 Bilirubin Ql (U) Negative Negative [facility] Work Phone: Culture, urineon 01-05-2022 Bacteria identified Cx Nom (U) Culture exhibits no growth. [facility] Work Phone: Ketones Test strip Ql (U)on 01-05-2022 Ketones Ql (U) Negative Negative [facility] Work Phone: Laboratory - Chemistry and C hemistry - challengeon 01-05-2022 Bilirubin Ql (U) Negative [facility] Work Phone: Glucose Ql (U) Negative [facility] Work Phone: Ketones Ql (U) Trace (5) [facility] Work Phone: pH (U) 7.0 [pH] [facility] Work Phone: Specific gravity (U) [Rel density] 1.005 [facility] Work Phone: Urobilinogen (U) [Mass/Vol] Negative [facility] Work Phone: Laboratory - Hematology and Cell countson 01-05-2022 Hemoglobin Ql (U) Negative [facility] Work Phone: Laboratory - Specimen inform ationon 01-05-2022 Clarity (U) Clear [facility] Work Phone: Color (U) STRAW [facility] Work Phone: Laboratory - Urinalysison Nitrite Ql (U) Negative [facility] Work Phone: Protein Ql (U) Negative [facility] Work Phone: Mucus LM Ql (Urine sed)on Mucus Ql (Urine sed) 0 SEEN /hpf [facility] Work Phone: Nitrite Test strip Ql (U)on 01-05-2022 Nitrite Ql (U) Negative Negative [facility] Work Phone: No Panel Informationon 01-05 Urine Leukocytes Negatve [facility] Work Phone: Urine Non-Hemolyzed Blood Negative [facility] Work Phone: Protein Test strip Ql (U)on 05-02-2022 Protein Ql (U) Negative Negative [facility] Work Phone: Squamous epithelial cells de tection in urine sediment by light microscopyon 01-05-2022 Epithelial cells.squamous LM Ql (Urine sed) 0 SEEN /hpf 5-10 [facility] Work Phone: Urine blood detectionon 05-0 RBC Ql (U) Negative Negative [facility] Work Phone: RBC Ql (U) 0 SEEN /hpf 0-5 [facility] Work Phone: Urine clarityon 01-05-2022 Clarity (U) Clear Clear [facility] Work Phone: Urine color determinationon 01-05-2022 Color (U) Yellow Yellow [facility] Work Phone: Urine glucose detectionon Glucose Ql (U) Normal mg/dl Normal [facility] Work Phone: Urine leukocyte esterase det ection by dipstickon 01-05-2022 Leukocyte esterase Test strip Ql (U) Negative Negative [facility] Work Phone: Urine pHon 01-05-2022 pH (U) 7.0 [pH] 5.0 - 8.0 [facility] Work Phone: Urine sediment bacteria coun t by microscopy (number/high power field)on 01-05-2022 Bacteria LM.HPF (Urine sed) [#/Area] 0 /[HPF] None Seen [facility] Work Phone: Urine specific gravity measu rementon 01-05-2022 Specific gravity (U) [Rel density] 1.005 1.002-1.030 [facility] Work Phone: Urobilinogen Auto test strip Ql (U)on 01-05-2022 Urobilinogen Ql (U) Normal mg/dl Normal [facility] Work Phone: Laboratory - Drug toxicology on 10-15-2021 Amphetamines Ql (U) Positive [facility] Work Phone: Benzodiazepines Ql (U) Negative [facility] Work Phone: Cannabinoids Screen Ql (U) Negative [facility] Work Phone: Cocaine Ql (U) Negative [facility] Work Phone: Opiates Ql (U) Negative [facility] Work Phone: No Panel Informationon 10-15 Miscellaneous Test See comment [facility] Work Phone: Comment on above: TEST RESULT LIMITSTr amadol Positive Qevzxr=274 Tramadol Conf,MS,UR 8005 ng/mL Lloird=100 _ TESTING PERFORMED AT [facility]. ORIGINAL REPORT ON FILE IN LAB CONTAINS ADDITIONAL TEST SITE INFORMATION. ___ Urine Barbiturates Screen Negative [facility] Work Phone: Urine Drug Screen Comment [facility] Work Phone: Comment on above: CONFIRMATORY TESTING FOR ALL POSITIVE URINE DRUG SCREENRESULTS WILL ONLY BE SENT OUT UPON PHYSICIAN ORDER. VISTA Urine Drug Screen methods provide only preliminaryanalytical test results. A more specific alternate chemicalmethod must be used in order to obtain a confirmedanalytical result. Gas chromatography/mass spectrometery(GC/MS) is the preferred confirmatory method. Clinicalconsideration and professional judgement should be appliedto any drug of abuse test result, particularly whenpreliminary positive results are used. URINE TCA TESTING MUST BE ORDERED SEPARATELY. USE TESTMNEMONIC: [facility] Urine Methadone Screen Negative [facility] Work Phone: Urine Methamphetamine-MDM A Screen Negative [facility] Work Phone: Urine phencyclidine (PCP) de tectionon 10-15-2021 Phencyclidine Ql (U) Negative [facility] Work Phone: Absolute lymphocyte counton 10-01-2021 Lymphocytes Auto (Unsp spec) [#/Vol] 1.76 10*3/uL 0.83-4.51 [facility] Work Phone: Basophil percentageon 2021 Basophils/100 WBC (Bld) 1.3 % 0-1 [facility] Work Phone: Bilirubin [Mass/Vol] 0.60 mg/dL 0.20-1.00 [facility] Work Phone: Comment on above: For patients on eltr ombopag therapy, use of Dimension [place] TBIL is not recommended. Chloride [Moles/Vol] 101 mmol/L 98-107 [facility] Work Phone: Cholesterol [Mass/Vol] 244 mg/dL <200 [facility] Work Phone: Comment on above: <200 mg/dL Desirable 200-240 mg/dL Borderline >240 mg/dL High Risk Eosinophils/100 WBC (Bld) 1.5 % 0-5 [facility] Work Phone: Glucose [Mass/Vol] 99 mg/dL 74-106 [facility] Work Phone: Neutrophils (Bld) [#/Vol] 2.6 10*3/uL 2.0-7.7 [facility] Work Phone: Neutrophils/100 WBC (Bld) 50.0 % 47-70 [facility] Work Phone: Potassium [Moles/Vol] 3.9 mmol/L 3.5-5.1 [facility] Work Phone: Protein [Mass/Vol] 8.0 g/dL 6.4-8.2 [facility] Work Phone: Sodium [Moles/Vol] 137 mmol/L 136-145 [facility] Work Phone: Triglyceride [Mass/Vol] 44 mg/dL [facility] Work Phone: Comment on above: The drugs N-Acetylcy steine and Metamizole may falsely depress this assay.Serum Triglycerides Reference Interval Normal <150 mg/dL Borderline high 150 - 199 mg/dL High 200 - 499 mg/dL Very High > or = 500 mg/dL WBC (Bld) [#/Vol] 5.3 10*3/uL 4.4-11.0 [facility] Work Phone: Blood erythrocytes count (nu mber/volume)on 10-01-2021 RBC (Bld) [#/Vol] 4.15 10*6/uL 4.2-5.4 [facility] Work Phone: Blood hemoglobin measurement (mass/volume)on 10-01-2021 Hemoglobin (Bld) [Mass/Vol] 13.3 g/dL 12.0-15.0 [facility] Work Phone: Blood lymphocytes/100 leukoc yteson 10-01-2021 Lymphocytes/100 WBC (Bld) 33.5 % 19-41 [facility] Work Phone: Blood monocytes/100 leukocyt eson 10-01-2021 Monocytes/100 WBC (Bld) 13.5 % 0-10 [facility] Work Phone: Blood platelet mean volumeon 10-01-2021 Platelet mean volume (Bld) [Entitic vol] 10.3 fL 6.2-12.0 [facility] Work Phone: Determination of erythrocyte mean corpuscular volume (MCV)on 10-01-2021 MCV (RBC) [Entitic vol] 95.7 fL 81-99 [facility] Work Phone: Direct bilirubinon 2 Bilirubin.direct [Mass/Vol] 0.15 mg/dL 0.00-0.30 [facility] Work Phone: Hematocrit Auto (Bld) [Volum e fraction]on 10-01-2021 Hematocrit (Bld) [Volume fraction] 39.7 % 37-47 [facility] Work Phone: [phone] Laboratory - Chemistry and C hemistry - challengeon 10-01-2021 ALP [Catalytic activity/Vol] 64 U/L 45-117 [facility] Work Phone: ALT [Catalytic activity/Vol] 31 U/L 13-56 [facility] Work Phone: [phone] CO2 [Moles/Vol] 31.0 mmol/L 21.0-32.0 [facility] Work Phone: [phone] Globulin (S) [Mass/Vol] 3.7 g/dL 2.2-4.2 [facility] Work Phone: [phone] Urea nitrogen/Creatinine [Mass ratio] 26.4 mg/mg 10-20 [facility] Work Phone: [phone] Laboratory - Hematology and Cell countson 10-01-2021 Erythrocyte distribution width (RBC) [Entitic vol] 46.7 fL 35.1-43.9 [facility] Work Phone: [phone] Erythrocyte distribution width (RBC) [Ratio] 13.1 % 11.6-14.6 [facility] Work Phone: [phone] Immature granulocytes/100 WBC (Bld) 0.200 % 0.0-0.9 [facility] Work Phone: [phone] Comment on above: IG% - Immature Granu locytes (promyelocytes, myelocytes and metamyelocytes) > 1% indicates that a LEFT SHIFT is Present. MCH (RBC) [Entitic mass] 32.0 pg 27.0-32.0 [facility] Work Phone: [phone] Nucleated RBC/100 WBC (Bld) [Ratio] 0 % 0-5 [facility] Work Phone: MCHC Auto (RBC) [Mass/Vol]on 10-01-2021 MCHC (RBC) [Mass/Vol] 33.5 g/dL 32-36 [facility] Work Phone: No Panel Informationon 10-01 Estimated GFR (MDRD) Amer 152 mL/min >60 [facility] Work Phone: Comment on above: GFR Calc Estimated GFR (MDRD) Non-Af Amer 126 mL/min >60 [facility] Work Phone: Comment on above: Non- GFR Calc Thyroid Stimulating Hormone (TSH) 1.72 uIU/mL 0.358-3.74 [facility] Work Phone: Platelets bldon 10-01-2021 Platelets (Bld) [#/Vol] 300 10*3/uL 150-450 [facility] Work Phone: Serum or plasma albumin jcarlos urement (mass/volume)on 10-01-2021 Albumin [Mass/Vol] 4.3 g/dL 3.2-5.0 [facility] Work Phone: Serum or plasma calcium jcarlos urement (mass/volume)on 10-01-2021 Calcium [Mass/Vol] 10.5 mg/dL 8.5-10.1 [facility] Work Phone: Serum or plasma cholesterol in HDL measurement (mass/volume)on 10-01-2021 Cholesterol in HDL [Mass/Vol] 119 mg/dL [facility] Work Phone: Comment on above: The drugs N-Acetylcy steine and Metamizole may falsely depress this assay. Reference Range HDL <40 mg/dL Low HDL Cholesterol HDL >or= 60 mg/dL High HDL Cholesterol Serum or plasma cholesterol in VLDL measurement (mass/volume)on 10-01-2021 Cholesterol in VLDL [Mass/Vol] 9 mg/dL 5-40 [facility] Work Phone: Serum or plasma creatinine m easurement (mass/volume)on 10-01-2021 Creatinine [Mass/Vol] 0.53 mg/dL 0.55-1.02 [facility] Work Phone: Comment on above: The validity of the calculated GFR & GFRAA in patients over 70 years has not been determined. Clinical correlation is essential. Serum or plasma low density lipoprotein (LDL) cholesterol measurement (mass/volume)on 10-01-2021 Cholesterol in LDL [Mass/Vol] 116 mg/dL 0-130 [facility] Work Phone: Serum or plasma urea nitroge n measurement (mass/volume)on 10-01-2021 Urea nitrogen [Mass/Vol] 14 mg/dL 7-18 [facility] Work Phone: Thin prep Papanicolaou smear with manual screeningon 10-01-2021 Thin prep Papanicolaou smear with manual screening 32 U/L 15-37 [facility] Work Phone: Thin prep Papanicolaou smear with manual screening 5 5-15 [facility] Work Phone: Culture, urine Bacteria identified Cx Nom (U) Culture exhibits no growth. [facility] Work Phone: Vital Signs Date Time Vital Sign Value Performing Clinician Faci lity 04-06-2022 17:00-0400 Body temperature 98.2 [degF] Dr. Fredy Ac Work Phone: [facility] Work Phone: 04-06-2022 17:00-0400 Diastolic blood pressure 53 mm[Hg] Dr. Fredy Ac Work Phone: [facility] Work Phone: 04-06-2022 17:00-0400 Heart rate 60 /min Dr. Fredy Ac Work Phone: [facility] Work Phone: 04-06-2022 17:00-0400 Respiratory rate 16 /min Dr. Fredy Ac Work Phone: [facility] Work Phone: 04-06-2022 17:00-0400 SaO2% (BldA) [Mass fraction] 98 % Dr. Fredy Ac Work Phone: [facility] Work Phone: 04-06-2022 17:00-0400 Systolic blood pressure 102 mm[Hg] Dr. Fredy Ac Work Phone: [facility] Work Phone: 04-06-2022 12:37-0400 Body height 160.[address] Fredy Ac Work Phone: [facility] Work Phone: 04-06-2022 12:37-0400 Body mass index (BMI) [Ratio] 17.5 kg/m2 Dr. Fredy Ac Work Phone: [facility] Work Phone: 04-06-2022 12:37-0400 Body weight [address] Fredy Ac Work Phone: [facility] Work Phone: 04-01-2022 19:29-0400 Body temperature 98 [degF] Dr. Fredy Ac Work Phone: [facility] Work Phone: 04-01-2022 19:29-0400 Heart rate 85 /min Dr. Fredy Ac Work Phone: [facility] Work Phone: 04-01-2022 17:46-0400 Body height 160.[address] Fredy Ac Work Phone: [facility] Work Phone: 04-01-2022 17:46-0400 Body mass index (BMI) [Ratio] 18.9 kg/m2 Dr. Fredy Ac Work Phone: [facility] Work Phone: 04-01-2022 17:46-0400 Body weight 48.[address] Fredy Ac Work Phone: [facility] Work Phone: 04-01-2022 17:46-0400 Diastolic blood pressure 85 mm[Hg] Dr. Fredy Ac Work Phone: [facility] Work Phone: 04-01-2022 17:46-0400 Respiratory rate 16 /min Dr. Fredy Ac Work Phone: [facility] Work Phone: 04-01-2022 17:46-0400 SaO2% (BldA) [Mass fraction] 98 % Dr. Fredy Ac Work Phone: [facility] Work Phone: 04-01-2022 17:46-0400 Systolic blood pressure 143 mm[Hg] Dr. Fredy Ac Work Phone: [facility] Work Phone: 01-05-2022 09:42-0400 Body temperature 98.6 [degF] Dr. Fredy Ac Work Phone: [facility] Work Phone: 01-05-2022 09:42-0400 Diastolic blood pressure 66 mm[Hg] Dr. Fredy Ac Work Phone: [facility] Work Phone: 01-05-2022 09:42-0400 Heart rate 85 /min Dr. Fredy Ac Work Phone: [facility] Work Phone: 01-05-2022 09:42-0400 Respiratory rate 16 /min Dr. Fredy Ac Work Phone: [facility] Work Phone: 01-05-2022 09:42-0400 SaO2% (BldA) [Mass fraction] 99 % Dr. Fredy Ac Work Phone: [facility] Work Phone: 01-05-2022 09:42-0400 Systolic blood pressure 114 mm[Hg] Dr. Fredy Ac Work Phone: [facility] Work Phone: 01-05-2022 09:42-0400 Body temperature 98.6 [degF] Dr. Fredy Ac Work Phone: [facility] Work Phone: 01-05-2022 09:42-0400 Diastolic blood pressure 66 mm[Hg] Dr. Fredy Ac Work Phone: [facility] Work Phone: 01-05-2022 09:42-0400 Heart rate 85 /min Dr. Fredy Ac Work Phone: [facility] Work Phone: 01-05-2022 09:42-0400 Respiratory rate 16 /min Dr. Fredy Ac Work Phone: [facility] Work Phone: 01-05-2022 09:42-0400 SaO2% (BldA) [Mass fraction] 99 % Dr. Fredy Ac Work Phone: [facility] Work Phone: 01-05-2022 09:42-0400 Systolic blood pressure 114 mm[Hg] Dr. Fredy Ac Work Phone: [facility] Work Phone: 10-01-2021 07:40-0500 Body height 160.[address] Fredy Ac Work Phone: [facility] Work Phone: 10-01-2021 07:40-0500 Body mass index (BMI) [Ratio] 18 kg/m2 Dr. Fredy Ac Work Phone: [facility] Work Phone: 10-01-2021 07:40-0500 Body weight 46.[address] Fredy Ac Work Phone: [facility] Work Phone: 01-26-2022 07:40-0500 Diastolic blood pressure 92 mm[Hg] Dr. Fredy Ac Work Phone: [facility] Work Phone: 10-01-2021 07:40-0500 Heart rate 98 /min Dr. Fredy Ac Work Phone: [facility] Work Phone: 10-01-2021 07:40-0500 Respiratory rate 16 /min Dr. Fredy Ac Work Phone: [facility] Work Phone: 10-01-2021 07:40-0500 SaO2% (BldA) [Mass fraction] 95 % Dr. Fredy Ac Work Phone: [facility] Work Phone: 10-01-2021 07:40-0500 Systolic blood pressure 149 mm[Hg] Dr. Fredy Ac Work Phone: [facility] Work Phone: Encounters Encounter Date Encounter Type Care Provider Facility Start: 02-04-2025 End: 02-04-2025 ambulatory Sergei Akers NP Facility:[facility] Start: 01-05-2025 End: 01-05-2025 ambulatory Ara Ac Facility:[facility] Start: 12-17-2024 End: 12-17-2024 ambulatory Sergei Akers NP Facility:[facility] Start: 11-15-2024 End: 11-15-2024 ambulatory Ara Ac Facility:[facility] Start: 09-13-2024 End: 09-13-2024 ambulatory Carmine Schwartz Facility:[facility] Start: 05-10-2024 End: 05-10-2024 ambulatory Ara Ac Facility:[facility] Start: 03-01-2024 End: 03-01-2024 ambulatory JULIENNE WHITEHEAD [facility] Start: 02-28-2024 End: 02-28-2024 ambulatory SCARLET RAM Facility:[facility] Start: 02-23-2024 End: 02-23-2024 ambulatory SCARLET RAM Facility:[facility] Start: 12-01-2023 End: 12-01-2023 ambulatory JULIENNE WHITEHEAD Facility:[facility] Start: 10-20-2023 End: 10-20-2023 ambulatory JULIENNE WHITEHEAD Facility:[facility] Start: 10-11-2023 End: 10-11-2023 ambulatory JULIENNE WHITEHEAD Facility:[facility] Start: 09-17-2023 End: 09-17-2023 ambulatory SUE BAKER Facility:[facility] Start: 09-03-2023 End: 09-07-2023 Evaluation and management of inpatient JULIENNE WHITEHEAD Facility:[facility] Start: 12-21-2022 End: 12-21-[address] Fredy Ac Work Phone: [facility] Work Phone: Start: 12-21-2022 End: 12-21-[address] Fredy Ac Work Phone: [facility] Start: 12-02-2022 End: 12-02-[address] Fredy Ac Work Phone: [facility] [facility] Start: 11-23-2022 End: 11-23-[address] Fredy Ac Work Phone: [facility] Work Phone: Start: 11-23-2022 End: 11-23-[address] Fredy Ac Work Phone: [facility] Start: 10-29-2022 End: 10-29-[address] Fredy Ac Work Phone: [facility] Work Phone: Start: 10-29-2022 End: 10-29-[address] Fredy Ac Work Phone: [facility] Start: 06-24-2022 End: 06-24-2022 ambulatory [facility] Work Phone: Start: 06-24-2022 End: 06-24-2022 Discharged Recurring [facility]-Occupational Therapy Start: 06-24-2022 Registered Recurring [facility]Occupational Therapy Start: 06-22-2022 End: 06-22-2022 ambulatory [facility] Work Phone: Start: 06-22-2022 End: 06-22-2022 [facility] Start: 06-10-2022 Registered Recurring [facility]Occ[facility]ational [facility] Start: 06-08-2022 End: 06-08-2022 ambulatory [facility] Work Phone: Start: 06-08-2022 End: 06-08-2022 [facility] Start: 05-13-2022 End: 05-13-2022 Patient encounter procedure [facility] Start: 04-14-2022 End: 04-14-[address] Fredy Ac Work Phone: [facility] Start: 04-06-2022 End: 04-06-2022 Admission to same day surgery center Dr. Fredy Ac Work Phone: [facility]Surgical Day Care Start: 04-01-2022 End: 04-01-2022 Emergency department patient visit Dr. Fredy Ac Work Phone: [facility]-Emergency Department Start: 03-06-2022 End: 03-06-[address] Fredy Ac [facility] Start: 01-21-2022 End: 01-21-[address] Fredy Ac Work Phone: [facility]-Ultrasound, [facility] Start: 01-05-2022 End: 01-05-[address] Fredy Ac Work Phone: [facility]-Laboratory, Specimen Start: 01-05-2022 End: 01-05-[address] Fredy Ac Work Phone: [facility] Start: 11-05-2021 Non-patient / Non-visit Dr. Fredy Ac Work Phone: [facility] Start: 11-05-2021 End: 11-05-[address] Fredy Ac Work Phone: [facility]-Cardiovascula r Services Start: 11-03-2021 End: 11-03-[address] Fredy Ac Work Phone: [facility] Start: 10-17-2021 End: 10-17-[address] Fredy Ac Work Phone: [facility] Start: 10-15-2021 End: 10-15-[address] [facility] Start: 10-03-2021 End: 10-03-[address] Fredy Ac Work Phone: [facility] Start: 10-01-2021 End: 10-01-[address] Fred[facility] Start: 09-23-2021 End: 09-23-[address] Fredy Ac Work Phone: [facility] Start: 10-12-2016 End: 10-15-2016 Evaluation and management of inpatient [facility] Facility:[facility] Procedures Date Procedure Procedure Detail Performing Clinician Start: 12-21-2022 CT of lumbar spine Dr. Fredy Ac Work Phone: Start: 04-17-2023 X-ray of lumbosacral spine Dr. Fredy Ac Work Phone: Start: 11-23-2022 MRI of lumbar spine Dr. Fredy Ac Work Phone: Start: 10-29-2022 X-ray of lumbar spin e, two or three views Dr. Fredy Ac Work Phone: Start: 06-22-2022 Plain x-ray of wrist Start: 06-08-2022 Radiologic examinati on of knee Start: 05-13-2022 Plain x-ray of wrist Start: 04-14-2022 Plain x-ray of wrist Dr Lizeth Ac Work Phone: Start: 04-06-2022 Fluoroscopic guidance Giselle Ac Work Phone: Start: 04-06-2022 Plain x-ray of wrist Dr Lizeth Ac Work Phone: Start: 04-06-2022 Open reduction of fr acture with internal fixation Dr. Fredy Ac Work Phone: Start: 04-01-2022 Plain x-ray of wrist Dr Lizeth Ac Work Phone: Start: 03-06-2022 Diagnostic radiograp hy of finger Dr. Fredy Ac Work Phone: Start: 03-06-2022 Plain x-ray of wrist Dr Lizeth Ac Work Phone: Start: 01-21-[address] Augusta Ac Work Phone: Start: 01-21-[address] Fredy Ac Work Phone: Start: 01-05-[address] Bruce Ac Work Phone: Start: 11-03-2021 Plain x-ray of hand Dr. Fredy Ac Work Phone: Start: 10-17-2021 Plain x-ray of hand Dr. Fredy Ac Work Phone: Start: 10-03-2021 X-ray of cervical spine Dr. Fredy Ac Work Phone: Start: 09-23-2021 Plain x-ray of hand Dr. Fredy Ac Work Phone: Start: 10-12-2016 EXCISION LUMBAR VERTEBRA PROVIDER UNKNOWN Start: 10-12-2016 EXTRACTION ILIAC BONE MA PROVIDER UNKNOWN Start: 10-12-2016 FUSION LV JOINT IF POST PROVIDER UNKNOWN Start: 10-12-2016 MONITOR PERIP NERV ELEC PROVIDER UNKNOWN Urine culture Dr. Fredy Ac Work Phone: Viral antigen assay Dr. Armando Ac Work Phone: Plan of Treatment Date Care Activity Detail Author Start: 04-06-2022 Ambulation without limitation [facility] Work Phone: Start: 04-06-2022 Patient discharge [facility] Work Phone: Start: 04-06-2022 Application of ice c ollar, cap or bag [facility] Work Phone: Start: 04-06-2022 Elevation of affecte d extremity [facility] Work Phone: Start: 04-06-2022 Catheterization of vein [facility] Work Phone: Start: 04-06-2022 Following clinical p athway protocol [facility] Work Phone: Start: 04-06-2022 Procedure discontinued [facility] Work Phone: Start: 04-06-2022 Taking patient vital signs [facility] Work Phone: Start: 04-06-2022 Vital signs measurements [facility] Work Phone: Start: 04-06-2022 [facility] Work Phone: Start: 04-06-2022 Anes arthrs/endscpy dstl radius ulna/wrist/hand ANESTH LOWER ARM SURGERY [facility] Work Phone: Start: 04-06-2022 Injection aa&/strd a xillary nerve NJX AA&/STRD AXILLARY NRV [facility] Work Phone: Start: 04-06-2022 Optx dstl radl i-art ic fx/epiphysl sep 3 frag TREAT FX RADIAL 3+ FRAG [facility] Work Phone: Start: 04-06-2022 Medication education [facility] Work Phone: Start: 04-01-2022 Application short ar m splint forearm-hand static APPLY FOREARM SPLINT [facility] Work Phone: MR Lumbar spine [facility] Patient Education Wrist Fracture [facility] Work Phone: Patient referral [facility] Work Phone: Payers Date Payer Category Payer Self-pay [id number] 2022 Unknown [id number] 2017 Unknown [id number] Unknown [id number] 2.16.8 [id number] Unknown [id number] 2.16.8 [id number] Unknown [id number] 2.16.8 [id number] Unknown [id number] 2.16.8 [id number] Unknown [id number] 2.16.8 [id number] Unknown [id number] 2.16.8 [id number] Unknown [id number] 2.16.8 [id number] Unknown [id number] 2.16.8 [id number] Social History Date Type Detail Facility Start: 01-05-2022 End: 12-02-2022 Tobacco smoking status NHIS Unknown if ever smoked [facility] Start: 01-25-2014 Occasional [facility] Start: 01-25-2014 None [facility] Start: 01-25-2014 Spouse/ Signif icant Other;With Family [facility] Start: 01-25-2014 Non-smoker [facility] Start: 1965 Sex Assigned At Female [facility] Medical Equipment Procedure Code Equipment Code Equipment Origin al Text Equipment Identifier Dates ORIF, fracture, wrist 2.4MM LOCKING DAYAN SCREW FDA Start: 04-06-2022 ORIF, fracture, wrist 3.5MM LO PRO CORTICAL SCREW FDA Start: 04-06-2022 ORIF, fracture, wrist VOLAR DISTAL RAD STANDARD PLATE FDA Start: 04-06-2022 ORIF, fracture, wrist 2.4MM LOCKING DAYAN SCREW FDA Start: 04-06-2022 ORIF, fracture, wrist 2.4MM LOCKING DAYAN SCREW FDA Start: 04-06-2022 ORIF, fracture, wrist 2.4MM LOCKING DAYAN SCREW FDA Start: 04-06-2022 ORIF, fracture, wrist 2.4MM LOCKING DAYAN SCREW FDA Start: 04-06-2022 ORIF, fracture, wrist 2.4MM LOCKING DAYAN SCREW FDA Start: 04-06-2022 ORIF, fracture, wrist 2.4MM LOCKING DAYAN SCREW FDA Start: 04-06-2022 ORIF, fracture, wrist 3.5 LO PRO CORTICAL SCREW FDA Start: 04-06-2022 ORIF, fracture, wrist 3.5 LO PRO CORTICAL SCREW FDA Start: 04-06-2022 ORIF, fracture, wrist 2.4MM LOCKING DAYAN SCREW FDA Start: 04-06-2022 ORIF, fracture, wrist 3.5MM LO PRO CORTICAL SCREW FDA Start: 04-06-2022 ORIF, fracture, wrist VOLAR DISTAL RAD STANDARD PLATE FDA Start: 04-06-2022 ORIF, fracture, wrist 2.4MM LOCKING DAYAN SCREW FDA Start: 04-06-2022 ORIF, fracture, wrist 2.4MM LOCKING DAYAN SCREW FDA Start: 04-06-2022 ORIF, fracture, wrist 2.4MM LOCKING DAYAN SCREW FDA Start: 04-06-2022 ORIF, fracture, wrist 2.4MM LOCKING DAYAN SCREW FDA Start: 04-06-2022 ORIF, fracture, wrist 2.4MM LOCKING DAYAN SCREW FDA Start: 04-06-2022 ORIF, fracture, wrist 2.4MM LOCKING DAYAN SCREW FDA Start: 04-06-2022 ORIF, fracture, wrist 3.5 LO PRO CORTICAL SCREW FDA Start: 04-06-2022 ORIF, fracture, wrist 3.5 LO PRO CORTICAL SCREW FDA Start: 04-06-2022 ORIF, fracture, wrist 2.4MM LOCKING DAYAN SCREW FDA Start: 04-06-2022 ORIF, fracture, wrist 3.5MM LO PRO CORTICAL SCREW FDA Start: 04-06-2022 ORIF, fracture, wrist VOLAR DISTAL RAD STANDARD PLATE FDA Start: 04-06-2022 ORIF, fracture, wrist 2.4MM LOCKING DAYAN SCREW FDA Start: 04-06-2022 ORIF, fracture, wrist 2.4MM LOCKING DAYAN SCREW FDA Start: 04-06-2022 ORIF, fracture, wrist 2.4MM LOCKING DAYAN SCREW FDA Start: 04-06-2022 ORIF, fracture, wrist 2.4MM LOCKING DAYAN SCREW FDA Start: 04-06-2022 ORIF, fracture, wrist 2.4MM LOCKING DAYAN SCREW FDA Start: 04-06-2022 ORIF, fracture, wrist 2.4MM LOCKING DAYAN SCREW FDA Start: 04-06-2022 ORIF, fracture, wrist 3.5 LO PRO CORTICAL SCREW FDA Start: 04-06-2022 ORIF, fracture, wrist 3.5 LO PRO CORTICAL SCREW FDA Start: 04-06-2022 ORIF, fracture, wrist 2.4MM LOCKING DAYAN SCREW FDA Start: 04-06-2022 ORIF, fracture, wrist 3.5MM LO PRO CORTICAL SCREW FDA Start: 04-06-2022 ORIF, fracture, wrist VOLAR DISTAL RAD STANDARD PLATE FDA Start: 04-06-2022 ORIF, fracture, wrist 2.4MM LOCKING DAYAN SCREW FDA Start: 04-06-2022 ORIF, fracture, wrist 2.4MM LOCKING DAYAN SCREW FDA Start: 04-06-2022 ORIF, fracture, wrist 2.4MM LOCKING DAYAN SCREW FDA Start: 04-06-2022 ORIF, fracture, wrist 2.4MM LOCKING DAYAN SCREW FDA Start: 04-06-2022 ORIF, fracture, wrist 2.4MM LOCKING DAYAN SCREW FDA Start: 04-06-2022 ORIF, fracture, wrist 2.4MM LOCKING DAYAN SCREW FDA Start: 04-06-2022 ORIF, fracture, wrist 3.5 LO PRO CORTICAL SCREW FDA Start: 04-06-2022 ORIF, fracture, wrist 3.5 LO PRO CORTICAL SCREW FDA Start: 04-06-2022 ORIF, fracture, wrist 2.4MM LOCKING DAYAN SCREW FDA Start: 04-06-2022 ORIF, fracture, wrist 3.5MM LO PRO CORTICAL SCREW FDA Start: 04-06-2022 ORIF, fracture, wrist VOLAR DISTAL RAD STANDARD PLATE FDA Start: 04-06-2022 ORIF, fracture, wrist 2.4MM LOCKING DAYAN SCREW FDA Start: 04-06-2022 ORIF, fracture, wrist 2.4MM LOCKING DAYAN SCREW FDA Start: 04-06-2022 ORIF, fracture, wrist 2.4MM LOCKING DAYAN SCREW FDA Start: 04-06-2022 ORIF, fracture, wrist 2.4MM LOCKING DAYAN SCREW FDA Start: 04-06-2022 ORIF, fracture, wrist 2.4MM LOCKING DAYAN SCREW FDA Start: 04-06-2022 ORIF, fracture, wrist 2.4MM LOCKING DAYAN SCREW FDA Start: 04-06-2022 ORIF, fracture, wrist 3.5 LO PRO CORTICAL SCREW FDA Start: 04-06-2022 ORIF, fracture, wrist 3.5 LO PRO CORTICAL SCREW FDA Start: 04-06-2022 ORIF, fracture, wrist 2.4MM LOCKING DAYAN SCREW FDA Start: 04-06-2022 ORIF, fracture, wrist 3.5MM LO PRO CORTICAL SCREW FDA Start: 04-06-2022 ORIF, fracture, wrist VOLAR DISTAL RAD STANDARD PLATE FDA Start: 04-06-2022 ORIF, fracture, wrist 2.4MM LOCKING DAYAN SCREW FDA Start: 04-06-2022 ORIF, fracture, wrist 2.4MM LOCKING DAYAN SCREW FDA Start: 04-06-2022 ORIF, fracture, wrist 2.4MM LOCKING DAYAN SCREW FDA Start: 04-06-2022 ORIF, fracture, wrist 2.4MM LOCKING DAYAN SCREW FDA Start: 04-06-2022 ORIF, fracture, wrist 2.4MM LOCKING DAYAN SCREW FDA Start: 04-06-2022 ORIF, fracture, wrist 2.4MM LOCKING DAYAN SCREW FDA Start: 04-06-2022 ORIF, fracture, wrist 3.5 LO PRO CORTICAL SCREW FDA Start: 04-06-2022 ORIF, fracture, wrist 3.5 LO PRO CORTICAL SCREW FDA Start: 04-06-2022 ORIF, fracture, wrist 2.4MM LOCKING DAYAN SCREW FDA Start: 04-06-2022 ORIF, fracture, wrist 3.5MM LO PRO CORTICAL SCREW FDA Start: 04-06-2022 ORIF, fracture, wrist VOLAR DISTAL RAD STANDARD PLATE FDA Start: 04-06-2022 ORIF, fracture, wrist 2.4MM LOCKING DAYAN SCREW FDA Start: 04-06-2022 ORIF, fracture, wrist 2.4MM LOCKING DAYAN SCREW FDA Start: 04-06-2022 ORIF, fracture, wrist 2.4MM LOCKING DAYAN SCREW FDA Start: 04-06-2022 ORIF, fracture, wrist 2.4MM LOCKING DAYAN SCREW FDA Start: 04-06-2022 ORIF, fracture, wrist 2.4MM LOCKING DAYAN SCREW FDA Start: 04-06-2022 ORIF, fracture, wrist 2.4MM LOCKING DAYNA SCREW FDA Start: 04-06-2022 ORIF, fracture, wrist 3.5 LO PRO CORTICAL SCREW FDA Start: 04-06-2022 ORIF, fracture, wrist 3.5 LO PRO CORTICAL SCREW FDA Start: 04-06-2022 Goals Date Patient Goal Desired Activity /State Mental Status Date Assessment Result Facility 04-06-2022 Cognitive function Voice/Name [facility] Work Phone: Clinical Notes 09-03-2023 to 03-01-2024 Note Date & Type Note Facility 03-01-2024 Note HNO ID: [id number] Author: JULIENNE WHITEHEAD MD Service: ? Author Type: Physician Type: Progress Notes Filed: 03/01/2024 10:30 Note Text: NEUROSURGERY FOLLOW UP OFFICE NOTE Chair, Clinical Neurosciences Director, [facility] Date of visit: March 01, 2024 Patient Name: Ms.Lisa Patricio Burks Date of : 1965 Current Age: [age] year old Sex: female MRN/E# [id number] Last Office Visit: 12/01/2023 Chief Complaint: Patient presents with: Established Patient SURGERY: L3-5 laminectomy and lateral recess decompression, [...] that radiographic imaging must be completed at [facility]. She was instructed to obtain radiographic [...] for further evaluation, prompting her visit today. She presented to the office 10/11/2023 approximately 5 week post operative visit. She stated she as doing well other than pain at incision site. She had been taking Keflex since Wednesday. Denied any fevers since Wednesday. Denied any drainage since Wednesday. On exam, her wound was essentially healed. There was a small portion towards the caudal end which was slightly reddened with evidence of recent discharge although no active discharge. Nothing could be expressed. It felt like a stitch abscess underneath. She had been started on Keflex. This was increased to 500 mg 4 times daily for an additional week to 10 days with a plan to see her back next week. Overall she had been doing better. We would also start her on some tramadol instead of her oxycodone. She would let us know if things worsened. The patient contacted the office 10/15/2023 and reported worsening redness at incision site in addition to several episodes of diarrhea. [facility] and patient was instructed to discontinue Keflex as it was suspected she was having a mild allergic reaction and switched to doxycycline for 10 days. She was asked to obtain outpatient lab work including CBC, ESR and CRP and follow up in office as scheduled. She presented to the office 10/20/2023 for a 6 week post operative visit. She had been doing well overall. Her incision was healing and the pain was improving. She did have some pressure near her incision site and an itching sensation. She denied any drainage or fevers. She was still on oral antibiotics. She noted some left hip pain and a nerve pain from her left lateral thigh stopping at the left knee. This nerve pain got worse as they day went on. She did note improvement in pain and strength though through the left leg and foot. There was a square red patch around her incision at the lower end that was reminiscent of the contact dermatitis. Her x-rays showed guillermo (more content not included)... [facility] 12-01-2023 Note HNO ID: [id number] Author: JULIENNE WHITEHEAD MD Service: ? Author Type: Physician Type: Progress Notes Filed: 12/01/2023 11:31 Note Text: NEUROSURGERY POST-OP NOTE Julienne Whitehead MD Chair, Clinical Neurosciences Director, [facility] Date of visit: December 01, 2023 Patient Name: Ms.Lisa Patricio Burks Date of : 1965 Current Age: [age] year old Sex: female MRN/E# [id number] Last Office Visit: 11/12/2023 SURGERY: L3-5 laminectomy and lateral recess decompression, [...] that radiographic imaging must be completed at [facility]. She was instructed to obtain radiographic [...] for further evaluation, prompting her visit today. She presented to the office 10/11/2023 approximately 5 week post operative visit. She stated she as doing well other than pain at incision site. She had been taking Keflex since Wednesday. Denied any fevers since Wednesday. Denied any drainage since Wednesday. On exam, her wound was essentially healed. There was a small portion towards the caudal end which was slightly reddened with evidence of recent discharge although no active discharge. Nothing could be expressed. It felt like a stitch abscess underneath. She had been started on Keflex. This was increased to 500 mg 4 times daily for an additional week to 10 days with a plan to see her back next week. Overall she had been doing better. We would also start her on some tramadol instead of her oxycodone. She would let us know if things worsened. The patient contacted the office 10/15/2023 and reported worsening redness at incision site in addition to several episodes of diarrhea. [facility] and patient was instructed to discontinue Keflex as it was suspected she was having a mild allergic reaction and switched to doxycycline for 10 days. She was asked to obtain outpatient lab work including CBC, ESR and CRP and follow up in office as scheduled. She presented to the office 10/20/2023 for a 6 week post operative visit. She had been doing well overall. Her incision was healing and the pain was improving. She did have some pressure near her incision site and an itching sensation. She denied any drainage or fevers. She was still on oral antibiotics. She noted some left hip pain and a nerve pain from her left lateral thigh stopping at the left knee. This nerve pain got worse as they day went on. She did note improvement in pain and strength though through the left leg and foot. There was a square red patch around her incision at the lower end that was reminiscent of the contact dermatitis. Her x-rays showed hardware in good position with no concern for screw pul (more content not included)... [facility] 10-20-2023 Note HNO ID: [id number] Author: JULIENNE WHITEHEAD MD Service: ? Author Type: Physician Type: Progress Notes Filed: 10/20/2023 11:28 Note Text: NEUROSURGERY POST-OP NOTE Julienne Whitehead MD Chair, Clinical Neurosciences Director, [facility] Date of visit: October 20, 2023 Patient Name: Ms.Lisa Patricio Burks Date of : 1965 Current Age: [age] year old Sex: female MRN/E# [id number] Last Office Visit: 10/11/2023 SURGERY: L3-5 laminectomy [...] that radiographic imaging must be completed at [facility]. She was instructed to obtain radiographic [...] for further evaluation, prompting her visit today. She presented to the office 10/11/2023 approximately 5 week post operative visit. She stated she as doing well other than pain at incision site. She had been taking Keflex since Wednesday. Denied any fevers since Wednesday. Denied any drainage since Wednesday. On exam, her wound was essentially healed. There was a small portion towards the caudal end which was slightly reddened with evidence of recent discharge although no active discharge. Nothing could be expressed. It felt like a stitch abscess underneath. She had been started on Keflex. This was increased to 500 mg 4 times daily for an additional week to 10 days with a plan to see her back next week. Overall she had been doing better. We would also start her on some tramadol instead of her oxycodone. She would let us know if things worsened. The patient contacted the office 10/15/2023 and reported worsening redness at incision site in addition to several episodes of diarrhea. [facility] and patient was instructed to discontinue Keflex as it was suspected she was having a mild allergic reaction and switched to doxycycline for 10 days. She was asked to obtain outpatient lab work including CBC, ESR and CRP and follow up in office as scheduled. Patient is having their 6 week post operative visit. She has been doing well overall. Her incision is healing and the pain is improving. She does have some pressure near her incision site and an itching sensation. She denies any drainage or fevers. She is still on oral antibiotics. She noted some left hip pain and a nerve pain from her left lateral thigh stopping at the left knee. This nerve pain gets worse as they day goes on. She does note improvement in pain and strength though through the left leg and foot. Incision: Dry and intact, without redness Current Outpatient Medications Medication Sig Dispense Refill cephALEXin (KEFLEX) 500 mg capsule Take 1 capsule by mouth four times daily for 10 days. 40 caps (more content not included)... [facility] 10-11-2023 Note HNO ID: [id number] Author: JULIENNE WHITEHEAD MD Service: ? Author Type: Physician Type: Progress Notes Filed: 10/11/2023 12:41 Note Text: NEUROSURGERY POST-OP NOTE Julienne Whitehead MD Chair, Clinical Neurosciences Director, [facility] Date of visit: October 11, 2023 Patient Name: Ms.Lisa Patricio Burks Date of : 1965 Current Age: [age] year old Sex: female MRN/E# [id number] Last Office Visit: 10/11/2023 SURGERY: L3-5 laminectomy [...] that radiographic imaging must be completed at [facility]. She was instructed to obtain radiographic [...] towards the caud (more content not included)... [facility] 09-17-2023 Note HNO ID: [id number] Author: SUE BAKER APRN.CNP Service: ? Author Type: Nurse Practitioner Type: Progress Notes Filed: 09/17/2023 10:44 Note Text: Postoperative Note ELSIE Cruz Date of visit: September 17, 2023 Patient Name: Ms.Lisa Patricio Burks Date of : 1965 Current Age: [age] year old Sex: female MRN/E# [id number] Last Office Visit: 09/09/2023 Postop Lumbar: SURGERY: [...] reports radiographic imaging must be completed at [facility]. Order provided to patient. Instructed patient [...] to the best of my ability. Sue Baker, KELLY-STAFF DEVELOPMENT NURSE [facility] This note was partially generated using Onaro voice recognition system, and there may be some incorrect words, spellings, and punctuation that were not noted in checking the note before saving. [facility] 09-06-2023 Note HNO ID: [id number] Author: Angelica Smith PA-C Service: Neurosurgery Author Type: Physician Wood Engraver Type: Progress Notes Filed: 09/06/2023 10:25 AM [...] (Oral) Resp 18 Ht 160 cm (5' 2.99) Wt 46.5 kg (102 lb 8.2 oz) LMP (LMP Unknown) SpO2 97% BMI 18.16 kg/m? O2 Therapy: Room Air IANDO: Date 09/05/23 07 - 09/06/23 0659 09/06/23 07 - 09/07/23 0659 Shift 3850-5785 1631-9549 5013-0032 24 Hour Total 5191-3690 3020-6030 7584-8393 24 Hour Total INTAKE PO 790 790 PO 790 790 IV 2350 2350 Volume (mL) (NaCl 0.9% iv infusion) 2350 2350 Shift Total 790 2350 3140 OUTPUT Urine 0588 366 8802 Void (ml) 0082 832 3546 Urine Not Saved. 1 x 1 x Tubes 40 40 Drain/Tube Output ([REMOVED] Drain/Tube 09/03/23 1147 [facility] Back 09/05/23 2106) 40 40 Shift Total 0559 821 6161 Weight (kg) 46.5 46.5 46.5 46.5 46.5 [...] September 06, 2023 TIME: 10:20 AM Pager: [phone] [facility] 09-05-2023 Note HNO ID: [id number] Author: Maria Eugenia Velasquez APRN.STAFF DEVELOPMENT NURSE Service: Neurosurgery Author Type: Nurse Practitioner Type: [...] the procedure well. Maria Eugenia Velasquez APRN STAFF DEVELOPMENT NURSE Neurosurgery Pager:[phone] [facility] 09-05-2023 Note HNO ID: [id number] Author: Maria Eugenia Velasquez APRN.STAFF DEVELOPMENT NURSE Service: Neurosurgery Author Type: Nurse Practitioner Type: [...] (Oral) Resp 18 Ht 160 cm (5' 2.99) Wt 46.5 kg (102 lb 8.2 oz) LMP (LMP Unknown) SpO2 100% BMI 18.16 kg/m? O2 Therapy: Room Air IANDO: Date 09/04/23 07 - 09/05/23 0659 09/05/23 0700 - 09/06/23 0659 Shift 8077-4494 0314-9918 9995-7261 24 Hour Total 7171-2242 2947-4056 3021-4208 24 Hour Total INTAKE PO 550 550 PO 550 550 Shift Total 550 550 OUTPUT Urine 250 710 275 5179 1900 Void (ml) 250 175 943 7694 1900 Urine Not Saved. 1 x 1 x Tubes 25 25 40 40 Drain/Tube Output (Drain/Tube 09/03/23 1147 [facility] Back) 25 25 40 40 Shift Total 250 250 593 2849 1940 Weight (kg) 46.5 46.5 46.5 46.5 [...] September 05, 2023 TIME: 11:50 AM Pager: [phone] [facility] 09-04-2023 Note HNO ID: [id number] Author: Maria Eugenia Velasquez APRN.CNP Service: Neurosurgery [...] (Oral) Resp 16 Ht 160 cm (5' 2.99) Wt 46.5 kg (102 lb 8.2 oz) LMP (LMP Unknown) SpO2 100% BMI 18.16 kg/m? O2 Therapy: Room Air IANDO: Date 09/03/23 07 - 09/04/23 0659 09/04/23 0700 - 09/05/23 0659 Shift 5012-7143 3066-1467 3839-2053 24 Hour Total 0058-7351 0349-6030 7332-6317 24 Hour Total INTAKE IV 1800 1800 Volume (mL) (ceFAZolin iv piggyback 2 g in D5W (iso-osmotic) 100 mL (ANCEF)) 100 100 Volume (mL) (NaCl 0.9% iv infusion) 700 700 Volume (mL) (lactated ringers iv infusion) 1000 1000 Shift Total 1800 1800 OUTPUT Urine 200 395 563 4210 250 250 Void (ml) 300 500 800 250 250 OR Urine Output 200 200 Urine Not Saved. 1 x 1 x Tubes 30 10 40 Drain/Tube Output (Drain/Tube 09/03/23 1147 [facility] Back) 30 10 40 Blood 200 200 Estimated Blood loss 200 200 Shift Total 400 626 582 8665 250 250 Weight (kg) 46.5 46.5 46.5 [...] for today's visit. SIGNATURE: Maria Eugenia Velasquez APRN.STAFF DEVELOPMENT NURSE PATIENT NAME: Conchis Burks DATE: September 04, 2023 TIME: 1:56 PM Pager: [phone] [facility] 09-03-2023 Note HNO ID: [id number] Author: Theresa Yost RN Service: ? Author Type: Registered Nurse Type: Nursing Progress Note Filed: 09/03/2023 1:04 PM Note Text: Other: Dr. Whitehead at bedside to speak with pt. [facility] 09-03-2023 Note HNO ID: [id number] Author: Catrina Woods APRN.RECONSIGNMENT CLERK Service: Nursing Author Type: Nurse [employer] Type: Anesthesia Procedure Notes Filed: 09/03/2023 8:32 AM Note Text: ANESTHESIOLOGY PROCEDURE NOTE Airway General Information Procedure Start Time/Medication Administration: 09/03/2023 8:07 AM Patient location during procedure: OR Timeout Performed Pre-procedure: timeout performed Consent Obtained: Yes Patient identity confirmed: arm band and patient Staffing RECONSIGNMENT CLERK: Catrina Woods APRN.RECONSIGNMENT CLERK Performed by: RECONSIGNMENT CLERK Indications and Patient Condition Indications for airway management: anesthesia Preoxygenated: yes anesthesia circuit Patient position: sniffing Method: asleep Difficult Mask: No Final Airway Details Final airway type: endotracheal airway Final Endotracheal Airway: ETT Cuffed: yes Successful intubation technique: video laryngoscopy Devices used: Assemblage Endotracheal tube insertion site: oral Blade: Elizabeth [...] September 03, 2023 TIME: 8:31 AM CSN: [id number] [facility] Evaluation note Diagnosis Onset Date Right bundle branch block (RBBB) acute Tachycardia acute Abdominal pain acute [facility] Work Phone: Evaluation note* Diagnosis Onset Date Resolution Status Abdominal pain acute [facility] Work Phone: Evaluation note* Diagnosis Onset Date Resolution Status Abdominal pain acute Fracture, Colles, right, closed acute [facility] Work Phone: Evaluation note* Diagnosis Onset Date Resolution Status Fracture, Colles, right, closed acute [facility] Work Phone: Evaluation noteNo assessment information available [facility] Work Phone: Evaluation note* Diagnosis Onset Date Resolution Status Lumbar back pain with radicu lopathy affecting left lower extremity acute [facility] Work Phone: Evaluation note* Diagnosis Onset Date Resolution Status Lumbar back pain with radicu lopathy affecting left lower extremity acute Spinal stenosis of lumbar region with radiculopathy acute [facility] Work Phone: Summary Purpose Family History No Family History Records Found Relationship Condition Age at Onset Recorded Date/T rex father Cerebrovascular accident (CVA) Unknown Cardiac disease Unknown grandmother Cerebral aneurysm Unknown mother Cardiac disease Unknown Advance Directives No Advanced Directives Records Found Advance Directive Response Recorded Date/ Time Advance Directives No July 8:51am Living Will No March 28, 2021 2:28pm Power of Assemblyman Or Woman No March 28 2:28pm Advance Directive Response Recorded Date/ Time Advance Directives No July 8:51am Living Will No April 01, 2022 6:07pm Power of Assemblyman Or Woman No April 01 6:07pm Advance Directive Response Recorded Date/ Time Advance Directives No July 8:51am Living Will No April 03, 2022 8:13am Power of Assemblyman Or Woman No April 03 8:13am Advance Directive Response Recorded Date/ Time Advance Directives No July 7:51am Living Will No April 03, 2022 7:13am Power of Assemblyman Or Woman No April 03 7:13am Chief Complaint and Reason for Visit Chief Complaint THUMB PAIN ELEVATED HEART RATE (RANNEY) EORDERS NECK PAIN RIGHT HAND/THUMB ARRTHTHMIA CONCERN FOR UTI Reason for Visit Right bundle branch block (RBBB) Tachycardia Abdominal pain Chief Complaint ELEVATED HEART RATE (RANNEY) EORDERS NECK PAIN RIGHT HAND/THUMB ARRTHTHMIA CONCERN FOR UTI PELVIC & PERINEAL PAIN Reason for Visit Right bundle branch block (RBBB) Tachycardia Abdominal pain Chief Complaint CONCERN FOR UTI PELVIC & PERINEAL PAIN RIGHT WRIST AND LEFT THUMB RIGHT WRIST Reason for Visit Abdominal pain Chief Complaint CONCERN FOR UTI PELVIC & PERINEAL PAIN RIGHT WRIST AND LEFT THUMB RIGHT WRIST rt distal radius fx orif Reason for Visit Abdominal pain Fracture, Colles, right, closed Chief Complaint CONCERN FOR UTI PELVIC & PERINEAL PAIN RIGHT WRIST AND LEFT THUMB RIGHT WRIST rt distal radius fx orif FRACTURE RIGHT WRIST Reason for Visit Abdominal pain Fracture, Colles, right, closed Chief Complaint RIGHT WRIST AND LEFT THUMB RIGHT WRIST rt distal radius fx orif FRACTURE RIGHT WRIST COLLES FX R RADIUS. RX HERE Reason for Visit Fracture, Colles, ri ght, closed Chief Complaint RIGHT WRIST AND LEFT THUMB RIGHT WRIST rt distal radius fx orif FRACTURE RIGHT WRIST RIGHT WRIST XRAY COLLES FX R RADIUS. RX HERE Reason for Visit Fracture, Colles, ri ght, closed Chief Complaint FRACTURE RIGHT WRIST RIGHT WRIST XRAY COLLES FX R RADIUS. RX HERE Chief Complaint Lumbar EORDER- pain Reason for Visit Lumbar back pain wit h radiculopathy affecting left lower extremity Chief Complaint Lumbar EORDER- pain LEFT LEG RAD Reason for Visit Lumbar back pain wit h radiculopathy affecting left lower extremity Chief Complaint Lumbar EORDER- pain LEFT LEG RAD LUMBER SPINE LUMBAR RAD Reason for Visit Lumbar back pain wit h radiculopathy affecting left lower extremity Spinal stenosis of lumbar region with radiculopathy Additional Source Comments INFORMATION SOURCE (unrecogn ized section and content) DATE CREATED AUTHOR 03/02/2018 [facility] [employer] DATE CREATED AUTHOR AUTHOR'S ORGANIZ ATION 09/01/2024 [facility] DATE CREATED AUTHOR AUTHOR'S ORGANIZ ATION 02/04/2025 [facility] Goals (unrecognized section and content) Goals may be documented in a n alternate sectionGoals may be documented in an alternate sectionGoals may be documented in an alternate sectionGoals may be documented in an alternate sectionGoals may be documented in an alternate sectionGoals may be documented in an alternate sectionGoals may be documented in an alternate section Care Teams (unrecognized sec tion and content) Team Status: Active Member Role Status Dates Dr. Fredy Ac MD Family Provider Active Dr. Fredy Ac MD Primary Care Provider Activ e Team Status: Inactive Member Role Status Dates Dr. Fredy Ac MD Primary Care Provider, Refe rring Provider Active Dr. Migue Rush DO Attending Provider Active Team Status: Inactive Member Role Status Dates Dr. Fredy Ac MD Primary Care Provider Activ e Dr. Migue Rush DO Attending Provider, Referring P rosamaria Active Team Status: Inactive Member Role Status Dates Dr. Fredy Ac MD Primary Care Provider Activ e CHARLEY ZIMMER Attending Provider, Referring Provider Active FOR RECORDS PERTAINING TO PATIENTS WHO ARE [...] BE BASED ON THE PRIMARY CLINICAL RECORDS. [employer] provides no warranty or guarantee of the accuracy or completeness of information in this document.
== END | disposition home or self-care (01) ==
LOC: MTRAD 10:17
PROVIDERS: PCP Family Medicine; Referring Provider Family Medicine; Visit Provider Family Medicine
DX: M79.643 Pain in unspecified hand (principal)
CPT/HCPCS: 73130

== ENCOUNTER → 2025-05-30 | Outpatient (CLI) | payer OTHER, SELFPAY ==
[2025-05-30 11:58] LABS: Barbiturate Urine NEGATIVE (< 200 ng/mL); Benzodiazepine Urine NEGATIVE (< 200 ng/mL); PCP Urine NEGATIVE (< 25 ng/mL); THC Urine NEGATIVE (< 50 ng/mL)
== END | disposition home or self-care (01) ==
LOC: LAB 09:46
PROVIDERS: PCP Family Medicine; Referring Provider Anesthesiology Pain Medicine; Visit Provider Anesthesiology Pain Medicine
DX: F11.20 Opioid dependence, uncomplicated (principal)
CPT/HCPCS: 80307